=== PATIENT | male | born 1985 | race Caucasian/White ===

== ENCOUNTER 2016-06-18 14:32 | Emergency (ER) | payer OTHER ==
[~2016-06-18] VITALS: Wt 77.1 kg
[~2016-06-18 14:32] MED LIST: ATIVAN1 MG PO; BACTRIM DS 8001 TA1 PO; CARAFATE1 G1 PO; CARAFATE1 GM PO; CELEXA20 MG; Carafate1 GM PO; Carafate1 GM/10 ML PO; FEOSOL300 MG PO; FOLIC ACID1 MG PO; KLOR-CON 1010 MEQ PO; LISINOPRIL10 MG PO; MAG-OX 400400 MG PO; NICODERM21 MG/24 H TD; NKHM; OMEPRAZOLE MAGN20 MG PO; ONDANSETRON4 MG/5 M1 PO; Ondansetron4 MG PO; PANTOPRAZOLE40 MG PO; PEPCID20 MG PO; PHENERGAN12.5 M1; PHENERGAN25 M1 PO; PHENERGAN25 MG R; PREVACID SOLUTA30 MG PO; PREVACID30 M3 PO; PRILOSEC10 MG/Pack PO; PRILOSEC40 MG PO; PROMETHAZI6.25 MG/1 PO; PROTONIX40 MG PO; Phenergan25 MG PO; REGLAN10 MG PO; REGLAN5 MG PO; TUMS ULTRA1000 MG PO; VASOTEC5 MG PO; VISTARIL25 M2 PO; ZANTAC 150150 MG PO; ZANTAC150 MG PO; ZOFRAN ODT4 MG PO; ZOFRAN ODT4 MG SL; ZOFRAN4 MG PO; Zofran4 MG PO; [UNRECOGNIZED DRUG - OTHER] PO
[2016-06-18 15:16] LABS: BASO # 0.1 10*3/uL (0.0-0.1); BASO % 0.9 % (0.0-1.0); EOS # 0.1 10*3/uL (0.0-0.4); HEMATOCRIT 46.2 % (42.0-52.0); HEMOGLOBIN 15.8 g/dl (14.0-18.0); IG # 0.1 10*3/uL (0.0-0.1); LYMPH % 21.7 % (27.0-41.0); MEAN CELL VOLUME 83.2 fl (80.0-94.0); MEAN CORPUSCULAR HGB 28.5 pg (27.0-31.0); MEAN CORPUSCULAR HGB CONC 34.2 g/dl (33.0-37.0); MEAN PLATELET VOLUME 9.8 fl (9.6-12.3); MONO # 0.6 10*3/uL (0.1-1.0); MONO % 4.6 % (3.0-9.0); NEUT # 9.7 10*3/uL (2.3-7.9); NEUT % 71.4 % (47.0-73.0); PLATELET COUNT AUTOMATED 326 10*3/uL (130-400); RED BLOOD COUNT 5.55 10*6/uL (4.50-5.90); WHITE BLOOD COUNT 13.6 10*3/uL (4.8-10.8)
[2016-06-18 15:31] LABS: ALBUMIN 4.6 gm/dl (3.1-4.5); ALKALINE PHOSPHATASE 76 U/L (45-117); BILIRUBIN, TOTAL 0.8 mg/dl (0.2-1.0); BUN 11 mg/dl (7-24); CARBON DIOXIDE 23 mmol/L (21-32); CHLORIDE 104 mmol/L (98-107); EST GLOM FILT AFRICAN AMERICAN > 60 ml/min; GLUCOSE 140 mg/dL (65-99); MAGNESIUM 2.1 mg/dL (1.5-2.1); POTASSIUM 3.6 mmol/L (3.5-5.1); SGOT/AST 18 IU/L (3-35); SGPT/ALT 39 U/L (12-78); SODIUM 140 mmol/L (136-145); TOTAL PROTEIN 8.4 gm/dL (6.4-8.2)
[2016-06-18] MEDS ORDERED: ZOFRAN4 MG PO ×2 (17:34→19:09)
[2016-06-18] MEDS ORDERED: PHENERGAN25 MG R (19:09)
== END 2016-06-18 19:13 | disposition home or self-care (01) ==
LOC: ED 14:32
PROVIDERS: Nurse Practitioner Family
DX: R11.2 Nausea with vomiting, unspecified (principal); R03.0 Elevated blood-pressure reading, without diagnosis of hypertension; F41.9 Anxiety disorder, unspecified; F12.10 Cannabis abuse, uncomplicated; I10 Essential (primary) hypertension; K21.9 Gastro-esophageal reflux disease without esophagitis

== ENCOUNTER 2016-06-19 03:45 | Inpatient (IN) | payer OTHER ==
[~2016-06-19] VITALS: Ht 180.3 cm; Wt 82.1 kg
[2016-06-19 03:48] VITALS: BP 152/97
[2016-06-19 04:23] LABS: BASO % 0.2 % (0.0-1.0); HEMATOCRIT 42.2 % (42.0-52.0); HEMOGLOBIN 14.7 g/dl (14.0-18.0); IG # 0.1 10*3/uL (0.0-0.1); LYMPH # 2.1 10*3/uL (1.3-4.4); LYMPH % 10.2 % (27.0-41.0); MEAN CELL VOLUME 80.8 fl (80.0-94.0); MEAN CORPUSCULAR HGB 28.2 pg (27.0-31.0); MEAN CORPUSCULAR HGB CONC 34.8 g/dl (33.0-37.0); MEAN PLATELET VOLUME 10.2 fl (9.6-12.3); MONO # 1.1 10*3/uL (0.1-1.0); MONO % 5.4 % (3.0-9.0); NEUT # 17.2 10*3/uL (2.3-7.9); NEUT % 83.8 % (47.0-73.0); PLATELET COUNT AUTOMATED 318 10*3/uL (130-400); RED BLOOD COUNT 5.22 10*6/uL (4.50-5.90); RED CELL DISTRI WIDTH 13.2 % (0-14.5); WHITE BLOOD COUNT 20.5 10*3/uL (4.8-10.8)
[2016-06-19 04:40] LABS: ALBUMIN 4.5 gm/dl (3.1-4.5); ALKALINE PHOSPHATASE 71 U/L (45-117); BILIRUBIN, TOTAL 0.8 mg/dl (0.2-1.0); BUN 11 mg/dl (7-24); CARBON DIOXIDE 22 mmol/L (21-32); CHLORIDE 103 mmol/L (98-107); EST GLOM FILT AFRICAN AMERICAN > 60 ml/min; GLUCOSE 139 mg/dL (65-99); POTASSIUM 3.4 mmol/L (3.5-5.1); SGOT/AST 17 IU/L (3-35); SGPT/ALT 34 U/L (12-78); SODIUM 140 mmol/L (136-145); TOTAL PROTEIN 8.2 gm/dL (6.4-8.2)
[2016-06-19 04:42] LABS: C-REACTIVE PROTEIN < 0.29 MG/DL (0-0.3)
[2016-06-19 06:00] VITALS: BP 170/98
[2016-06-19 06:40] LABS: FREE T4 1.48 ng/dl (0.76-1.46)
[2016-06-19 06:45] LABS: THYROID STIM HORMONE (HS) 3.36 uIU/ml (0.358-4.75)
[2016-06-19 07:02] LABS: PROTHROMBIN TIME 10.8 SECONDS (9.0-12.4)
[2016-06-19 08:00] VITALS: BP 118/76
[2016-06-19 08:28] LABS: VITAMIN D, 25-HYDROXY 13.2 ng/mL (30-100)
[2016-06-19 08:29] LABS: FOLIC ACID 14.1 ng/mL (>5.38)
[2016-06-19 12:00] VITALS: BP 121/81
[2016-06-19 14:45] LABS: URINE AMPHETAMINES < 1000 (1000ng/ml); URINE BARBITURATES < 200 (200ng/ml); URINE COCAINE < 300 (300ng/ml)
[2016-06-19 16:00] VITALS: BP 118/75
[2016-06-19 20:00] VITALS: BP 134/83
[2016-06-20] VITALS: BP 127/81
[2016-06-20 06:08] LABS: BASO # 0.1 10*3/uL (0.0-0.1); BASO % 0.8 % (0.0-1.0); EOS # 0.2 10*3/uL (0.0-0.4); EOS % 1.4 % (1.0-4.0); HEMATOCRIT 40.1 % (42.0-52.0); HEMOGLOBIN 13.4 g/dl (14.0-18.0); LYMPH # 2.9 10*3/uL (1.3-4.4); MEAN CORPUSCULAR HGB CONC 33.4 g/dl (33.0-37.0); MEAN PLATELET VOLUME 10.2 fl (9.6-12.3); MONO # 0.8 10*3/uL (0.1-1.0); MONO % 7.5 % (3.0-9.0); NEUT # 6.8 10*3/uL (2.3-7.9); NEUT % 62.9 % (47.0-73.0); PLATELET COUNT AUTOMATED 231 10*3/uL (130-400); RED BLOOD COUNT 4.78 10*6/uL (4.50-5.90); RED CELL DISTRI WIDTH 13.4 % (0-14.5); WHITE BLOOD COUNT 10.9 10*3/uL (4.8-10.8)
[2016-06-20 06:10] LABS: MEAN CELL VOLUME 83.9 fl (80.0-94.0)
[2016-06-20 06:29] LABS: ALBUMIN 3.6 gm/dl (3.1-4.5); BILIRUBIN, TOTAL 1.2 mg/dl (0.2-1.0); BUN 7 mg/dl (7-24); CARBON DIOXIDE 26 mmol/L (21-32); CHLORIDE 107 mmol/L (98-107); EST GLOM FILT AFRICAN AMERICAN > 60 ml/min; GLUCOSE 85 mg/dL (65-99); MAGNESIUM 2.4 mg/dL (1.5-2.1); PHOSPHOROUS 2.7 mg/dL (2.5-4.9); POTASSIUM 3.7 mmol/L (3.5-5.1); SGOT/AST 28 IU/L (3-35); SODIUM 142 mmol/L (136-145); TOTAL PROTEIN 6.9 gm/dL (6.4-8.2)
[2016-06-20 06:30] LABS: ALKALINE PHOSPHATASE 60 U/L (45-117); SGPT/ALT 34 U/L (12-78)
[2016-06-20 08:00] VITALS: BP 129/88
[2016-06-20 12:00] VITALS: BP 140/85
[2016-06-20] MEDS ORDERED: CIPRO500 MG PO (13:37)
[2016-06-20] MEDS ORDERED: FLAGYL500 MG PO (13:37)
== END 2016-06-20 13:00 | disposition home or self-care (01) | DRG 872 ==
LOC: ED 03:45 → 5E 05:06 → EDHOLD 05:06 → 5E 05:11
PROVIDERS: Emergency Medicine Emergency Medical Services; Internal Medicine Hospice and Palliative Medicine
DX: A41.9 Sepsis, unspecified organism (principal); E55.9 Vitamin D deficiency, unspecified; F12.10 Cannabis abuse, uncomplicated; K52.9 Noninfective gastroenteritis and colitis, unspecified; G43.A0 Cyclical vomiting, in migraine, not intractable; K21.9 Gastro-esophageal reflux disease without esophagitis; F41.9 Anxiety disorder, unspecified; Z87.81 Personal history of (healed) traumatic fracture; Z80.9 Family history of malignant neoplasm, unspecified; Z82.3 Family history of stroke

== ENCOUNTER 2016-10-04 15:14 | Inpatient (IN) | payer OTHER ==
[~2016-10-04] VITALS: Ht 180.3 cm; Wt 83.6 kg
--- NOTE | ~2016-10-04 | O ---
[place], [place] OPERATIVE NOTE NAME: KRISTINA HATFIELD UNIT #: [id number] ROOM: 411 DOCTOR: ALAINA RAINNIMCO BIRTHDATE: [birth year] DOS: 10/06/2016 INDICATIONS: The patient has presented with relentless nausea, vomiting. This has happened to him periodically and according to his mother reflux symptomatology also has been addressed. He has been telling me that he has had CT scan and workup done in past in same regard. PAST MEDICAL HISTORY: Anxiety, cannabis dependency, gastroesophageal reflux, hiatal hernia. PAST SURGICAL HISTORY: Previous endoscopy. SOCIAL HISTORY: Nonalcohol consumer, nonsmoker, except marijuana. FAMILY HISTORY: Supportive mother. ALLERGIES: No known medications. HOME MEDICATION: Nil. PROCEDURE: Today's procedure part of investigation is panendoscopy plus biopsy of the antrum and biopsies of the esophagus. PREMEDICATION: Versed and Diprivan. SCOPE: Olympus forward-viewing gastroscope Q10 video. REPORT: After putting the patient in the left lateral position and after application of lubricant to the scope, the scope was introduced. Thereafter, under direct visualization, I advanced through the length of the esophagus without difficulty. There are diffuse esophageal ulcerations at the distal and thoracic esophagus secondary to reflux. Hiatal hernia, which is about 3 cm plus, was identified. Gastric pouch was entered. Gastritis noticed. Duodenum expresses multi small duodenal ulcerations. Antral biopsy obtained for H. pylori. Biopsies from ulcers on esophagus were obtained. The patient extubated, tolerated procedure well. IMPRESSION: Gastroesophageal reflux disease, reflux, diffuse esophageal ulcers, multi-duodenal ulcers. PLAN: At the present time, we have to consider prokinetic as back bone of his management with metoclopramide 5 mg daily to see if he can tolerate the medication. Elevation of the head of the bed 6 inches all time with antireflux while he is inpatient and double dose ulcer therapy with Protonix 40 mg IV b.i.d., sucralfate 2 g slurry q.i.d. and Gaviscon 1 at bedtime as an outpatient in addition to Protonix 40 mg q.a.m. Follow up as outpatient for further adjustment of medications. Thank you very much indeed. [place], [place] OPERATIVE NOTE NAME: KRISTINA HATFIELD UNIT #: [id number] ROOM: [facility] DOCTOR: NIMCO FOLEY MD BIRTHDATE: [birth year] NIMCO FOLEY MD CM:OPRECORD:OPERATIVE NOTE [id number] NIMCO FOLEY MD 10/06/16 1923 interface
--- NOTE | ~2016-10-04 | CON ---
[place], [place] REPORT OF CONSULTATION NAME: [facility]RISTINA HATFIELD [id number] UNIT #: [id number] ROOM: 411 DOCTOR: KIAN KERR ED.D (SO) BIRTHDATE: [birth year] DOS: 10/05/2016 HISTORY OF PRESENT ILLNESS: The patient is a 31-year-old male referred due to chronic vomiting syndrome. He was referred by the hospitalist. At the present time, this patient is on the fourth floor at [facility]. He is single and has no children. He does live with his parents here in [place]. He has no siblings. He also does not have a family physician and is not working. 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 He does not have a family physician and his medical history is pertinent for cannabis abuse, chronic gastritis, hiatal hernia, vitamin D deficiency, and GERD. He does not have any regular medications, but does use marijuana significant amount of the time. He states that his vomiting is related to marijuana. This patient was awake, alert and oriented in all three spheres. He did appear to be depressed, but he denied any suicidal ideation or plan and did not appear to be having any active hallucinations or delusional thoughts. He denied any hallucinations also. He has not followed up with a counselor and I suggested he might consider that due to the fact that he is depressed, but he states that once he gets a job, he will feel fine. DIAGNOSES: 1. Cannabis abuse. 2. Persistent depressive disorder. RECOMMENDATIONS: The patient should consider counseling for substance abuse issues along with depression. Thank you very much for this consult. KIAN KERR ED.D CM:CONSTR:REPORT OF CONSULTATION 1044 10/06/16 0118 interface
[~2016-10-04 15:14] MED LIST changes: +CIPRO500 MG PO; +FLAGYL500 MG PO
[2016-10-04 15:22] VITALS: BP 158/90
[2016-10-04 15:43] VITALS: BP 156/88
[2016-10-04 16:02] LABS: BASO # 0.1 10*3/uL (0.0-0.1); BASO % 0.9 % (0.0-1.0); EOS # 0.1 10*3/uL (0.0-0.4); EOS % 0.6 % (1.0-4.0); HEMATOCRIT 44.2 % (42.0-52.0); HEMOGLOBIN 15.5 g/dl (14.0-18.0); IG # 0.1 10*3/uL (0.0-0.1); LYMPH # 2.5 10*3/uL (1.3-4.4); LYMPH % 17.5 % (27.0-41.0); MEAN CELL VOLUME 81.3 fl (80.0-94.0); MEAN CORPUSCULAR HGB 28.5 pg (27.0-31.0); MEAN CORPUSCULAR HGB CONC 35.1 g/dl (33.0-37.0); MEAN PLATELET VOLUME 10.3 fl (9.6-12.3); MONO # 0.6 10*3/uL (0.1-1.0); MONO % 4.3 % (3.0-9.0); NEUT % 76.1 % (47.0-73.0); PLATELET COUNT AUTOMATED 296 10*3/uL (130-400); RED BLOOD COUNT 5.44 10*6/uL (4.50-5.90); RED CELL DISTRI WIDTH 13.5 % (0-14.5); WHITE BLOOD COUNT 14.4 10*3/uL (4.8-10.8)
[2016-10-04 16:18] LABS: ALBUMIN 4.2 gm/dl (3.1-4.5); ALKALINE PHOSPHATASE 70 U/L (45-117); BILIRUBIN, TOTAL 0.7 mg/dl (0.2-1.0); BUN 8 mg/dl (7-24); CARBON DIOXIDE 21 mmol/L (21-32); CHLORIDE 106 mmol/L (98-107); EST GLOM FILT AFRICAN AMERICAN > 60 ml/min; GLUCOSE 141 mg/dL (65-99); POTASSIUM 3.5 mmol/L (3.5-5.1); SGOT/AST 15 IU/L (3-35); SGPT/ALT 27 U/L (12-78); SODIUM 140 mmol/L (136-145); TOTAL PROTEIN 8.1 gm/dL (6.4-8.2)
[2016-10-04] MEDS ORDERED: Zofran4 MG PO (17:40)
[2016-10-04 18:22] VITALS: BP 164/95
[2016-10-04 19:10] VITALS: BP 158/92
[2016-10-04 19:40] VITALS: BP 155/80
[2016-10-04 19:42] VITALS: BP 155/91
[2016-10-04 21:58] LABS: LA>2 REFLEX 2 HR DRAW NOW
[2016-10-04 23:00] LABS: LA>2 RFLX FOLLOW UP AT 2 HRS 3.6 mmol/L (0.4-2.0)
[2016-10-05] VITALS: BP 158/90
[2016-10-05 00:53] LABS: LA>2 REFLEX 4 HR DRAW NOW
[2016-10-05 03:22] LABS: LA>2 REFLEX 2 HR DRAW NOW
[2016-10-05 03:55] LABS: LA>2 RFLX FOLLOW UP AT 2 HRS 2.2 mmol/L (0.4-2.0)
[2016-10-05 04:00] VITALS: BP 158/90
[2016-10-05 05:50] LABS: LA>2 REFLEX 4 HR DRAW NOW
[2016-10-05 06:06] LABS: BASO % 0.1 % (0.0-1.0); HEMATOCRIT 41.6 % (42.0-52.0); HEMOGLOBIN 14.1 g/dl (14.0-18.0); IG # 0.1 10*3/uL (0.0-0.1); LYMPH # 1.5 10*3/uL (1.3-4.4); LYMPH % 7.7 % (27.0-41.0); MEAN CELL VOLUME 81.6 fl (80.0-94.0); MEAN CORPUSCULAR HGB 27.6 pg (27.0-31.0); MEAN CORPUSCULAR HGB CONC 33.9 g/dl (33.0-37.0); MEAN PLATELET VOLUME 11.1 fl (9.6-12.3); MONO # 0.9 10*3/uL (0.1-1.0); MONO % 4.6 % (3.0-9.0); PLATELET COUNT AUTOMATED 290 10*3/uL (130-400); RED CELL DISTRI WIDTH 13.5 % (0-14.5); WHITE BLOOD COUNT 19.6 10*3/uL (4.8-10.8)
[2016-10-05 06:11] LABS: HEMOGLOBIN A1c 5.3 % (4.8-5.6)
[2016-10-05 06:22] LABS: BUN 9 mg/dl (7-24); CARBON DIOXIDE 25 mmol/L (21-32); CHLORIDE 103 mmol/L (98-107); CHOLESTEROL 174 mg/dL (<200); EST GLOM FILT AFRICAN AMERICAN > 60 ml/min; FREE T4 1.25 ng/dl (0.76-1.46); GLUCOSE 131 mg/dL (65-99); HDL CHOLESTEROL 45 mg/dl (40-60); LDL CHOLESTEROL 108 mg/dL (9-159); POTASSIUM 3.2 mmol/L (3.5-5.1); SODIUM 139 mmol/L (136-145); TRIGLYCERIDES 104 mg/dl (<150); VLDL CHOLESTEROL 21 mg/dL (6-40)
[2016-10-05 06:33] LABS: PROTHROMBIN TIME 10.9 SECONDS (9.0-12.4)
[2016-10-05 06:45] LABS: VITAMIN D, 25-HYDROXY 26.1 ng/mL (30-100)
[2016-10-05 06:46] LABS: FOLIC ACID 13.6 ng/mL (>5.38)
[2016-10-05 07:45] LABS: LA>2 REFLEX 2 HR DRAW NOW
[2016-10-05 08:00] VITALS: BP 168/82
[2016-10-05 08:16] LABS: LA>2 RFLX FOLLOW UP AT 2 HRS 2.2 mmol/L (0.4-2.0)
[2016-10-05 08:28] LABS: URINE AMPHETAMINES < 1000 (1000ng/ml); URINE BARBITURATES < 200 (200ng/ml); URINE COCAINE < 300 (300ng/ml)
[2016-10-05 10:00] LABS: LA>2 REFLEX 4 HR DRAW NOW
[2016-10-05 12:00] VITALS: BP 147/89
[2016-10-05 16:00] VITALS: BP 140/80
[2016-10-05 20:00] VITALS: BP 129/85
[2016-10-06] VITALS (9 sets, daily range): BP systolic 131–156; BP diastolic 81–95
[2016-10-06 06:04] LABS: BASO % 0.2 % (0.0-1.0); HEMATOCRIT 36.4 % (42.0-52.0); HEMOGLOBIN 12.5 g/dl (14.0-18.0); IG # 0.1 10*3/uL (0.0-0.1); LYMPH # 1.9 10*3/uL (1.3-4.4); LYMPH % 11.9 % (27.0-41.0); MEAN CELL VOLUME 83.5 fl (80.0-94.0); MEAN CORPUSCULAR HGB 28.7 pg (27.0-31.0); MEAN CORPUSCULAR HGB CONC 34.3 g/dl (33.0-37.0); MEAN PLATELET VOLUME 10.3 fl (9.6-12.3); MONO # 1.1 10*3/uL (0.1-1.0); MONO % 6.6 % (3.0-9.0); NEUT % 80.9 % (47.0-73.0); PLATELET COUNT AUTOMATED 229 10*3/uL (130-400); RED BLOOD COUNT 4.36 10*6/uL (4.50-5.90); RED CELL DISTRI WIDTH 13.8 % (0-14.5)
[2016-10-06 06:18] LABS: BUN 8 mg/dl (7-24); CARBON DIOXIDE 25 mmol/L (21-32); CHLORIDE 105 mmol/L (98-107); EST GLOM FILT AFRICAN AMERICAN > 60 ml/min; GLUCOSE 116 mg/dL (65-99); POTASSIUM 3.3 mmol/L (3.5-5.1); SODIUM 138 mmol/L (136-145)
[2016-10-07] VITALS: BP 150/90
[2016-10-07 04:00] VITALS: BP 152/98
[2016-10-07 08:00] VITALS: BP 152/98
[2016-10-07] MEDS ORDERED: NEXIUM20 M1 PO (10:52)
[2016-10-07] MEDS ORDERED: Carafate1 GM/10 ML PO (10:52)
[2016-10-07] MEDS ORDERED: REGLAN10 MG/10 M PO (10:52)
== END 2016-10-07 13:29 | disposition home or self-care (01) | DRG 872 ==
LOC: ED 15:14 → EDHOLD 18:27 → 4E 18:27
PROVIDERS: Emergency Medicine; Family Medicine; Internal Medicine; Internal Medicine Hospice and Palliative Medicine
PROC: 0DB58ZX Excision of Esophagus, Via Natural or Artificial Opening Endoscopic, Diagnostic (ICD-10-PCS; principal; 2016-10-06)
PROC: 0DB68ZX Excision of Stomach, Via Natural or Artificial Opening Endoscopic, Diagnostic (ICD-10-PCS; 2016-10-06)
DX: A41.9 Sepsis, unspecified organism (principal); K26.9 Duodenal ulcer, unspecified as acute or chronic, without hemorrhage or perforation; K22.10 Ulcer of esophagus without bleeding; K29.50 Unspecified chronic gastritis without bleeding; R65.20 Severe sepsis without septic shock; K52.9 Noninfective gastroenteritis and colitis, unspecified; K44.9 Diaphragmatic hernia without obstruction or gangrene; K20.9 Esophagitis, unspecified; G43.A0 Cyclical vomiting, in migraine, not intractable; R73.9 Hyperglycemia, unspecified; K21.0 Gastro-esophageal reflux disease with esophagitis; F41.9 Anxiety disorder, unspecified; E55.9 Vitamin D deficiency, unspecified; F34.1 Dysthymic disorder; F12.20 Cannabis dependence, uncomplicated; K29.70 Gastritis, unspecified, without bleeding; K29.80 Duodenitis without bleeding; F32.9 Major depressive disorder, single episode, unspecified; Z71.51 Drug abuse counseling and surveillance of drug abuser; Z79.899 Other long term (current) drug therapy; Z76.5 Malingerer [conscious simulation]

== ENCOUNTER 2016-12-18 19:38 | Inpatient (IN) | payer OTHER ==
[~2016-12-18] VITALS: Ht 180.3 cm; Wt 80.3 kg
--- NOTE | ~2016-12-18 | O ---
[place], [place] OPERATIVE NOTE NAME: KRISTINA HATFIELD [id number] UNIT #: [id number] ROOM: 501 DOCTOR[facility] BIRTHDATE: [birth year] DOS: GASTROENDOSCOPIC REPORT INDICATIONS: The patient has presented with epigastric abdominal pain. The patient has a known case of gastritis, apparently a noncompliant case, who has had access to sucralfate, Protonix and metoclopramide. Apparently, he has not been taking his medications and presented again with epigastric abdominal pain. PAST MEDICAL HISTORY: Cannabis user, intractable nausea or vomiting, gastritis, hypoglycemia, duodenal ulcer, gastritis. PROCEDURE: Today's procedure part of investigation is panendoscopy plus photographic series and biopsy. PREMEDICATIONS: Versed and Diprivan. SCOPE: Olympus forward-viewing gastroscope Q10 video. REPORT: After putting the patient in left lateral position and application of lubricant to the scope, the scope was introduced. Thereafter, under direct visualization, I advanced through the length of the esophagus. Cervical esophagus benign; however, thoracic and distal esophagus is diffusely ulcerated secondary to refluxes and this is circular throughout the length of the esophagus otherwise. Ulceration intensified as we approached esophagogastric junction. A 2-cm hiatal hernia noticed. Gastric pouch was entered. Gastritis of mild degree was seen, patency of duodenal bulb, second and third part are short. Scope was withdrawn back to the esophagus. Biopsy from segment of the ulcer was obtained. No bleeding ensued. Scope was gradually withdrawn. The patient extubated, tolerated the procedure well. IMPRESSION: Reflux, esophageal ulcerations, diffuse distal and thoracic esophagus. PLAN AND DISCUSSION: This patient requires to be compliant and to take his medication; therefore, we are going to put him on Reglan 10 mg a.m. and p.m. We are going to start him on sucralfate sips at 2 grams q.i.d. We are going to keep him on GERD diet. We are going to increase his Protonix to 40 mg IV b.i.d. and antireflux measures, Gaviscon 15 p.c. meals and clinical reassessment. Definitive source of his epigastric distress is subxiphoid chest pain and is entirely secondary to his diffuse esophageal ulceration. [place], [place] OPERATIVE NOTE NAME: KRISTINA HATFIELD Trina UNIT #: [id number] ROOM: [facility] [place] DOCTOR: ALAINA RAIN,NIMCO BIRTHDATE: [birth year] NIMCO FOLEY MD CM:OPRECORD:OPERATIVE NOTE 1200 [id number] NIMCO FOLEY MD 12/22/16 1257 interface
--- NOTE | ~2016-12-18 | CON ---
[place], [place] REPORT OF CONSULTATION NAME: KRISTINA HATFIELD UNIT #: [id number] ROOM: 501 DOCTOR: NIMCO FOLEY MD BIRTHDATE: [birth year] DOS: HISTORY OF PRESENT ILLNESS: A 31-year-old patient who has presented with chief complaint of epigastric pain, nausea and vomiting to the point where he has to seek medical attention to be evaluated. CT scan of the abdomen shows wall thickening, hyperplasia of distal stomach, underlying infection and ulceration could not be ruled out. The patient was admitted with white blood cell of 16, H and H of 14 and 42. Comprehensive metabolic panel, electrolyte balance and liver function tests normal. Amylase and lipase within normal limits. His basic metabolic remains the same. Low potassium was addressed. White blood cell 14. PAST MEDICAL HISTORY: Associated cannabis dependency, nausea and emesis cyclic, gastritis, anxiety, cholelithiasis, hiatal hernia and GERD. PAST SURGICAL HISTORY: EGD. SOCIAL HISTORY: Nonalcohol user, non-nicotine consumer, however, marijuana consumer. FAMILY HISTORY: Noncontributory. ALLERGIES: No known medications. MEDICATIONS: Medication list is known. The patient has been supposedly on sucralfate and metoclopramide, PPI and antiemetics; however, as I am questioning, the patient apparently has not been taking his medicine at home. REVIEW OF SYSTEMS: HEENT: Denies double vision, blurred vision. RESPIRATORY: Denies acute shortness of breath. CARDIOVASCULAR: Denies acute chest pain. DIGESTIVE SYSTEM: Nausea or vomiting. PHYSICAL EXAMINATION: VITAL SIGNS: Stable. HEENT: Head normocephalic, nontraumatic. Mouth and buccal mucosa benign. NECK: Supple, no thyromegaly. CHEST: Symmetric anatomy, equal expansion. No wheeze, no rhonchi. HEART: Normal sinus rhythm, no gallop, no murmur. ABDOMEN: Soft. No hepato-organomegaly. Bowel sounds present. No pulsatile mass, epigastric distress. EXTREMITIES: No cyanosis. No pedal edema. NEUROLOGIC: Alert, oriented to time, place and person. IMPRESSION: Epigastric abdominal pain, abnormal CT scan with wall thickening of distal stomach ruling out peptic ulcer disease, gastritis and erosions. OTHER ADJUNCTIVE DIAGNOSES: As outlined in paragraph of past medical and surgical history. [place], [place] REPORT OF CONSULTATION NAME: KRISTINA HATFIELD UNIT #: [id number] ROOM: 501 DOCTOR: ALAINA RAIN,NIMCO BIRTHDATE: [birth year] PLAN AND DISCUSSION: This patient already has had a HIDA scan done. His ejection fraction has been 69 and his gallbladder sonogram result is known to us, cholelithiasis with wall thickening, positive Inman sign and workup in progress. NIMCO FOLEY MD CM:CONSTR:REPORT OF CONSULTATION 1151 12/22/16 2146 interface
[~2016-12-18 19:38] MED LIST changes: +NEXIUM20 M1 PO; +REGLAN10 MG/10 M PO
[2016-12-18 20:00] VITALS: BP 146/90
--- NOTE | 2016-12-18 20:25 | NUR ---
PT ACTIVELY VOMITING IN EXAM ROOM OFFSET MACHINE OPERATOR STEVIE NOTIFIED
[2016-12-18 20:44] LABS: HEMATOCRIT 42.7 % (42.0-52.0); HEMOGLOBIN 14.5 g/dl (14.0-18.0); MEAN CELL VOLUME 81.8 fl (80.0-94.0); MEAN CORPUSCULAR HGB 27.8 pg (27.0-31.0); MEAN PLATELET VOLUME 10.4 fl (9.6-12.3); PLATELET COUNT AUTOMATED 319 10*3/uL (130-400); RED BLOOD COUNT 5.22 10*6/uL (4.50-5.90); RED CELL DISTRI WIDTH 13.6 % (0-14.5); WHITE BLOOD COUNT 16.8 10*3/uL (4.8-10.8)
[2016-12-18 21:01] LABS: ALBUMIN 4.3 gm/dl (3.1-4.5); ALKALINE PHOSPHATASE 86 U/L (45-117); BUN 9 mg/dl (7-24); CHLORIDE 105 mmol/L (98-107); CREATININE 0.93 mg/dL (0.70-1.30); LIPASE 73 U/L (73-393); POTASSIUM 3.7 mmol/L (3.5-5.1); SGOT/AST 12 IU/L (3-35); SGPT/ALT 24 U/L (12-78); SODIUM 139 mmol/L (136-145); TOTAL PROTEIN 8.5 gm/dL (6.4-8.2)
[2016-12-18 21:03] LABS: TOTAL CELLS COUNTED 100 #CELLS
[2016-12-18 21:05] LABS: PLATELET SUFFICIENCY NORMAL (NORMAL)
--- NOTE | 2016-12-18 21:08 | NUR ---
NO EMESIS SINCE ZOFRAN WAS GIVEN PT TO CT SCAN
--- NOTE | 2016-12-18 21:31 | NUR ---
PT HAD SMALL EMESIS BROWNISH IN COLOR CRAFT RECRUITER STEVIE NOTIFIED
--- NOTE | 2016-12-18 22:12 | NUR ---
pt resting in bed no distress noted call light in reach
--- NOTE | 2016-12-18 22:51 | NUR ---
PT REQUESTED SANOTHER BAG OF FLUIDS AND ZOFRAN RICH HUBBARD NOTIFIED
--- NOTE | 2016-12-18 22:55 | NUR ---
PT REQUESTING MORE BENADRYL RICH HUBBARD NOTIFIED
[2016-12-18 23:04] LABS: BILIRUBIN 1+ (NEGATIVE); BLOOD TRACE-INTACT (NEGATIVE); CLARITY CLEAR (CLEAR); COLOR YELLOW (YELLOW); GLUCOSE NEGATIVE (NEGATIVE); KETONE 3+ (NEGATIVE); LEUKO ESTERASE NEGATIVE (NEGATIVE); NITRITE NEGATIVE (NEGATIVE); SPECIFIC GRAVITY >= 1.030 (1.005-1.030); UROBILINOGEN 0.2 E.U./dl (0.2-1.0)
--- NOTE | 2016-12-18 23:10 | NUR ---
REPORT TO ZOHAIB FOX RN
[2016-12-18 23:14] LABS: URINE AMPHETAMINES < 1000 (1000ng/ml); URINE BARBITURATES < 200 (200ng/ml); URINE BENZODIAZEPINES < 200 (200ng/ml); URINE CANNABINOIDS (THC) > 50 (50ng/ml); URINE COCAINE < 300 (300ng/ml); URINE METHADONE < 300 (300ng/ml); URINE OPIATES < 300 (300ng/ml)
[2016-12-18 23:19] LABS: BACTERIA TRACE; MUCOUS 1+; URINE PHENCYCLIDINE < 25 (25ng/ml)
--- NOTE | 2016-12-18 23:28 | NUR ---
PT HAD APPROXIMATELY 200CC BROWN LIQUID EMESIS.
[2016-12-19 00:49] VITALS: BP 132/78
[2016-12-19 01:00] VITALS: BP 122/79
--- NOTE | 2016-12-19 01:00 | NUR ---
Time: 99 A 31 year old MALE admitted to 5E under services of BRANDEN BEAVERS DO. Pt. arrived via wheel chair from ER. Chief complaint: NAUSEA/VOMITING. MARIFER SOSA
[2016-12-19 01:07] VITALS: BP 122/79
--- NOTE | 2016-12-19 02:57 | NUR ---
MEDICATED WITH PRN PHENERGHAN FOR C/O NAUSEA
[2016-12-19 06:19] LABS: BASO % 0.1 % (0.0-1.0); HEMATOCRIT 40.1 % (42.0-52.0); HEMOGLOBIN 13.4 g/dl (14.0-18.0); LYMPH # 1.6 10*3/uL (1.3-4.4); LYMPH % 12.2 % (27.0-41.0); MEAN CELL VOLUME 83.9 fl (80.0-94.0); MEAN CORPUSCULAR HGB CONC 33.4 g/dl (33.0-37.0); MEAN PLATELET VOLUME 10.8 fl (9.6-12.3); MONO # 0.8 10*3/uL (0.1-1.0); MONO % 5.9 % (3.0-9.0); NEUT # 10.9 10*3/uL (2.3-7.9); NEUT % 81.4 % (47.0-73.0); PLATELET COUNT AUTOMATED 299 10*3/uL (130-400); RED BLOOD COUNT 4.78 10*6/uL (4.50-5.90); RED CELL DISTRI WIDTH 13.9 % (0-14.5); WHITE BLOOD COUNT 13.4 10*3/uL (4.8-10.8)
[2016-12-19 06:59] LABS: ACT PARTIAL THROMBO TIME 22.8 SECONDS (20.8-31.5)
[2016-12-19 07:02] LABS: BUN 7 mg/dl (7-24); CHLORIDE 106 mmol/L (98-107); CHOLESTEROL 160 mg/dL (<200); CREATININE 0.79 mg/dL (0.70-1.30); HDL CHOLESTEROL 47 mg/dl (40-60); LDL CHOLESTEROL 100 mg/dL (9-159); POTASSIUM 3.6 mmol/L (3.5-5.1); SODIUM 139 mmol/L (136-145); TRIGLYCERIDES 63 mg/dl (<150); VLDL CHOLESTEROL 13 mg/dL (6-40)
[2016-12-19 08:00] VITALS: BP 132/82
--- NOTE | 2016-12-19 09:00 | NUR ---
Labor Standards Director in to talk to patient. Patient states lives at home with family. There are few steps in the home. Physician: Pharmacy: no jacques Home health services: none Patient's level of ADLs: INDEPENDENT Patient has working utilities: all working DME: none Follow-up physician's appointment after d/c: will be made by hospitalist nurse director upon discharge Does patient want to access PORTAL?: no Discharge plan discussed with patient, patient lives at home, is independent in adls and ambulation, patient states he will be going back home and denies any home needs. NATHAN VINSON
[2016-12-19 10:04] LABS: VITAMIN D, 25-HYDROXY 21.3 ng/mL (30-100)
[2016-12-19 12:00] VITALS: BP 128/84
--- NOTE | 2016-12-19 13:50 | NUR ---
MEDICATED WITH PRN IV PHENERGAN FOR PERSISTANT NAUSEA/VOMITING.
--- NOTE | 2016-12-19 15:00 | NUR ---
PHENERGAN WAS MILDLY EFFECTIVE, PER PATIENT. HE IS REQUESTING BENADRYL FOR NAUSEA/ANXIETY.
--- NOTE | 2016-12-19 16:37 | NUR ---
MEDICATED WITH PRN IV BENADRYL FOR NAUSEA/ANXIETY. PATIENT CONTINUES TO HAVE INTERMITTENT FREQUENT EMESIS SMALL AMOUNTS OF WATERY LIQUID. HE HAS NO APPETITE, ATE ONE POPSICLE AND FEW SIPS OF WATER TODAY.
--- NOTE | 2016-12-19 17:08 | NUR ---
PATIENT CONTINUES TO HAVE CLEAR LIQUID EMESIS; BENADRYL PRN IV AND SCHEDULED ZOFRAN NOT EFFECTIVE.
[2016-12-19 20:00] VITALS: BP 143/90
--- NOTE | 2016-12-19 20:00 | NUR ---
ASSUMED CARE OF PATIENT. ASSESSMENT COMPLETE. SITTING UP ON SIDE OF BED. REQUESTING IV BENADRYL, MADE AWARE ON NEXT AVAILABLE DOSE. PT STATES "DO YOU HAVE SOMETHING ELSE TO KNOCK ME OUT" MADE HIM AWARE OF PRN RESTORIL. REFUSES. CALL LIGHT IN REACH.
--- NOTE | 2016-12-19 22:47 | NUR ---
MEDICATED WITH PRN BENADRYL FOR HELP TO SLEEP/RESTLESSNESS
--- NOTE | 2016-12-20 | NUR ---
PT REFUSING BLOOD PRESSURE AT THIS TIME
--- NOTE | 2016-12-20 01:47 | NUR ---
CALLED TO PATIENTS ROOM. PT STATES "I CAN'T KEEP ANYTHING DOWN, NOTHING IS WORKING. THE ZOFRAN ISN'T WORKING, THE BENADRYL ISN'T WORKING" MEDICATED WITH PRN PHENERGAN AT THIS TIME. PT THEN STATES "IT SAYS TO ASK FOR PAIN MEDICINE, I AM IN PAIN" WHEN ASKED TO RATE PAIN AND LOCATION PT STATES "IN MY ABDOMEN, IT IS PRETTY BAD" INFORMED PATIENT HE HAS TYLENOL ORDERED AND HE STATES "I DON'T TAKE PILLS THEY KNOW THAT, WHY CAN'T THEY JUST ORDER ME DILAUDID"
--- NOTE | 2016-12-20 01:54 | NUR ---
CALLED AND SPOKE TO DR ACOSTA REGARDING PT REQUESTING IV DILAUDID. NO ORDERS RECEIVED.
[2016-12-20 07:53] LABS: BASO % 0.2 % (0.0-1.0); HEMATOCRIT 40.9 % (42.0-52.0); HEMOGLOBIN 13.7 g/dl (14.0-18.0); LYMPH # 1.8 10*3/uL (1.3-4.4); LYMPH % 9.3 % (27.0-41.0); MEAN CELL VOLUME 83.3 fl (80.0-94.0); MEAN CORPUSCULAR HGB 27.9 pg (27.0-31.0); MEAN CORPUSCULAR HGB CONC 33.5 g/dl (33.0-37.0); MEAN PLATELET VOLUME 10.6 fl (9.6-12.3); MONO # 1.1 10*3/uL (0.1-1.0); MONO % 5.8 % (3.0-9.0); NEUT # 16.3 10*3/uL (2.3-7.9); NEUT % 84.3 % (47.0-73.0); PLATELET COUNT AUTOMATED 292 10*3/uL (130-400); RED BLOOD COUNT 4.91 10*6/uL (4.50-5.90); WHITE BLOOD COUNT 19.3 10*3/uL (4.8-10.8)
[2016-12-20 07:55] LABS: ALBUMIN 3.9 gm/dl (3.1-4.5); ALKALINE PHOSPHATASE 74 U/L (45-117); BUN 8 mg/dl (7-24); CHLORIDE 100 mmol/L (98-107); CREATININE 0.73 mg/dL (0.70-1.30); POTASSIUM 3.5 mmol/L (3.5-5.1); SGOT/AST 17 IU/L (3-35); SGPT/ALT 20 U/L (12-78); SODIUM 137 mmol/L (136-145); TOTAL PROTEIN 7.5 gm/dL (6.4-8.2)
[2016-12-20 08:00] VITALS: BP 146/88
--- NOTE | 2016-12-20 09:29 | NUR ---
case management visits with patient, patient denies any home needs at this time
--- NOTE | 2016-12-20 10:38 | NUR ---
Nutritional Support Services Note: Pts diet advanced to soft for breakfast. After eating pt has compliants of nausea and vomiting. Again made NPO. Will follow for advancement of po intake. Susan Salmeron
--- NOTE | 2016-12-20 10:40 | NUR ---
PT C/O ABDOMINAL PAIN, REQUESTS PRN MORPHINE 2 MG VIA IV. MORPHINE GIVEN AT THIS TIME. WILL MONITOR EFFECTIVENESS. CALL LIGHT IN REACH.
--- NOTE | 2016-12-20 10:49 | NUR ---
DR. MURPHY INFORMED THAT PATIENT IS REFUSING TO DRINK READI-CAT FOR CT SCAN. INTERNATIONAL LOGISTICS ANALYST ALSO INFORMED. MARKED ON EMAR REFUSED.
--- NOTE | 2016-12-20 11:40 | NUR ---
MORPHINE EFFECTIVE. PT RESTING IN BED. CALL LIGHT IN REACH.
--- NOTE | 2016-12-20 12:40 | NUR ---
PT OFF OF FLOOR TO X RAY FOR CT OF ABDOMEN.
--- NOTE | 2016-12-20 14:10 | NUR ---
MORPHINE GIVEN VIA IV FOR PT C/O PAIN. WILL MONITOR FOR EFFECTIVNESS. CALL LIGHT IN REACH.
--- NOTE | 2016-12-20 15:00 | NUR ---
[facility] NOTIFIED THIS NURSE OF PT CRITICAL RESULTS OF ULTRASOUND. DR. FRAUSTO NOTIFIED AT THIS TIME.
--- NOTE | 2016-12-20 15:10 | NUR ---
MORPHINE EFFECTIVE. PT RESTING IN BED, NO C/O PAIN AT THIS TIME. CALL LIGHT IN REACH.
[2016-12-20 16:00] VITALS: BP 145/99
--- NOTE | 2016-12-20 16:38 | NUR ---
DR. SHETH CALLED FOR CONSULT.
--- NOTE | 2016-12-20 18:12 | NUR ---
PT C/O ABDOMNIAL PAIN. REQUESTS MORPHINE SULFATE. MORPHINE SULFATE 2 MG GIVEN VIA IV. WILL MONITOR FOR EFFECTIVENESS. CALL LIGHT IN REACH.
--- NOTE | 2016-12-20 19:12 | NUR ---
MORPHINE EFFECTIVE. PT RESTING IN BED. CALL LIGHT IN REACH.
[2016-12-20 20:00] VITALS: BP 142/100; BP 143/103
--- NOTE | 2016-12-20 20:40 | NUR ---
SLEEPING, AWAKENS EASILY. RESPIRATIONS EASY. LUNGS CLEAR. PULSE OX 98% RA. ABD SOFT WITH NORMOACTIVE BOWEL SOUNDS, DENIES N/V/D. REQUESTED AND RECEIVED MORPHINE IV PER PRN ORDER FOR COMPLAINTS OF MID ABD PAIN RATING A 5. TRACE BLE EDEMA. OFFERED AND EDUCATED REGARDING TEDS, DECLINED. IV FLUIDS INFUSING PER ORDER. CALL LIGHT WITHIN REACH. WILL MONITOR
--- NOTE | 2016-12-20 21:00 | NUR ---
MANUAL BP 142/100. HR 70. DR CHEUNG CONTACTED AND INFORMED. PER , KEEP AN EYE ON BP AND CALL IF BP REMAINS THIS HIGH OR HIGHER ON NEXT CHECK
--- NOTE | 2016-12-20 22:00 | NUR ---
EARLIER MEDS APPEAR EFFECTIVE. RESTING WITH EYES CLOSED. RESPIRATIONS EASY. IV FLUIDS MAINTAINED. CALL LIGHT WITHIN REACH
[2016-12-21] VITALS: BP 146/92; BP 146/93
--- NOTE | 2016-12-21 00:04 | NUR ---
SITTING UP IN BED WATCHING TV. RESPIRATIONS EASY. VSS. C/O ABD PAIN RATING A 4, MEDICATED WITH MORPHINE PER PRN ORDER. IV FLUIDS MAINTAINED. CALL LIGHT WITHIN REACH. WILL MONITOR FOR EFFECTIVENESS
--- NOTE | 2016-12-21 02:00 | NUR ---
CONTINUES TO SLEEP WITH NO DISTRESS NOTED. RESPIRATIONS EASY. IV FLUIDS MAINTAINED
--- NOTE | 2016-12-21 04:30 | NUR ---
AWAKE, SITTING UP IN BED. REQUESTED MORPHINE FOR C/O ABD PAIN, EXPLAINED TO PATIENT THAT HE MAY NOT RECEIVE MORPHINE D/T HIDA SCAN IN AM. PATIENT VOICED UNDERSTANDING STATING "THAT'S OK." IV FLUIDS MAINTAINED. CALL LIGHT WITHIN REACH
--- NOTE | 2016-12-21 06:00 | NUR ---
SLEEPING. NPO STATUS MAINTAINED FOR TESTING THIS AM.
--- NOTE | 2016-12-21 06:30 | NUR ---
PATIENT TRANSPORTED OFF FLOOR VIA WC FOR TESTING
--- NOTE | 2016-12-21 06:55 | NUR ---
DR SHETH PRESENT ON FLOOR TO ASSESS PATIENT. PATIENT REMAINS OFF FLOOR FOR HIDA SCAN. AWARE PATIENT NPO SINCE MIDNIGHT. KEEP PATIENT NPO FOR POSSIBLE SURGERY
[2016-12-21 08:00] VITALS: BP 149/97
[2016-12-21 08:15] LABS: BASO # 0.1 10*3/uL (0.0-0.1); BASO % 0.6 % (0.0-1.0); EOS # 0.1 10*3/uL (0.0-0.4); EOS % 0.4 % (1.0-4.0); HEMATOCRIT 43.8 % (42.0-52.0); HEMOGLOBIN 14.6 g/dl (14.0-18.0); LYMPH # 2.6 10*3/uL (1.3-4.4); LYMPH % 16.8 % (27.0-41.0); MEAN CELL VOLUME 83.3 fl (80.0-94.0); MEAN CORPUSCULAR HGB 27.8 pg (27.0-31.0); MEAN CORPUSCULAR HGB CONC 33.3 g/dl (33.0-37.0); MEAN PLATELET VOLUME 10.3 fl (9.6-12.3); MONO # 1.2 10*3/uL (0.1-1.0); MONO % 7.8 % (3.0-9.0); NEUT # 11.3 10*3/uL (2.3-7.9); NEUT % 74.1 % (47.0-73.0); PLATELET COUNT AUTOMATED 260 10*3/uL (130-400); RED BLOOD COUNT 5.26 10*6/uL (4.50-5.90); RED CELL DISTRI WIDTH 13.8 % (0-14.5); WHITE BLOOD COUNT 15.2 10*3/uL (4.8-10.8)
[2016-12-21 08:27] LABS: BUN 8 mg/dl (7-24); CHLORIDE 104 mmol/L (98-107); CREATININE 0.74 mg/dL (0.70-1.30); POTASSIUM 3.4 mmol/L (3.5-5.1); SODIUM 137 mmol/L (136-145)
--- NOTE | 2016-12-21 09:00 | NUR ---
case management visits with patient, patient denies any home needs
--- NOTE | 2016-12-21 10:02 | NUR ---
MORPHINE 2MG GIVEN PER PATIENT REQUEST FOR ABDOMINAL PAIN.
--- NOTE | 2016-12-21 11:01 | NUR ---
MORPHINE NOT EFFECTIVE AN ADDITIONAL DOSE OF MORPHINE 2MG GIVEN PRESCRIBED.
--- NOTE | 2016-12-21 11:38 | NUR ---
DR FOLEY NOTIFIED OF CONSULT. FOR EGD TOMORROW.
--- NOTE | 2016-12-21 11:52 | NUR ---
PATIENT RESTING IN BED. NO SIGNS OF DISTRESS NOTED. MORPHINE EFFECTIVE.
[2016-12-21 12:00] VITALS: BP 140/95
[2016-12-21 16:00] VITALS: BP 138/85
--- NOTE | 2016-12-21 18:30 | NUR ---
MORPHINE 2MG IV GIVEN PER PATIENT REQUEST FOR ABDOMINAL PAIN RATING 7/10.
[2016-12-21 20:00] VITALS: BP 132/85
--- NOTE | 2016-12-21 20:00 | NUR ---
SITTING UP IN BED WATCHING TV WITH NO DISTRESS NOTED. RESPIRATIONS EASY. LUNGS CLEAR. PULSE OX 94% RA. ABD SOFT WITH HYPOACTIVE BOWEL SOUNDS, DENIES N/V/D. TRACE BLE EDEMA. OFFERED AND EDUCATED REGARDING TEDS, DECLINED. IV FLUIDS INFUSING PER ORDER. CALL LIGHT WITHIN REACH. NO VOICED COMPLAINTS
--- NOTE | 2016-12-21 23:43 | NUR ---
REQUESTED AND RECEIVED MORPHINE IV PER PRN ORDER FOR C/O ABD PAIN RATING A 4. CALL LIGHT WITHIN REACH. WILL MONITOR FOR EFFECTIVENESS
[2016-12-22] VITALS (7 sets, daily range): BP systolic 126–158; BP diastolic 72–92
--- NOTE | 2016-12-22 00:30 | NUR ---
STATES RELIEF FROM EARLIER PAIN MEDS. RESTING IN BED WITH NO DISTRESS NOTED. RESPIRATIONS EASY. VSS. IV FLUIDS INFUSING PER ORDER. CALL LIGHT WITHIN REACH. NPO STATUS DISCUSSED FOR SURGERY, VOICED UNDERSTANDING.
--- NOTE | 2016-12-22 02:30 | NUR ---
CALLING OUT FOR PAIN MEDS. ENTERED ROOM TO SEE PATIENT SITTING UPRIGHT IN BED, DRAMATICALLY SHAKING. PATIENT STATES "IT FEELS LIKE FIRE" POINTING TO EPIGASTRIC AREA. PATIENT SPITTING CLEAR PHLEGM IN BASIN. REQUESTING "MY PAIN SHOT". MEDICATED WITH MORPHINE AND ZOFRAN IV. WHILE MEDICATING, PATIENT QUESTIONS "IS THIS THE DOUBLE DOSE?" EXPLAINED TO PATIENT THAT MORPHINE WAS THE SAME DOSE HE HAS BEEN RECEIVING (2MG), PATIENT THEN QUESTIONS "CAN I HAVE ANOTHER HALF DOSE?" AGAIN EXPLAINED TO PATIENT THAT MORPHINE IS 2 MG Q2H PRN.
--- NOTE | 2016-12-22 03:10 | NUR ---
EARLIER MEDS APPEAR EFFECTIVE. SLEEPING SITTING UP IN BED. RESPIRATIONS EASY. IV FLUIDS MAINTAINED. CALL LIGHT WITHIN REACH
--- NOTE | 2016-12-22 05:58 | NUR ---
PATIENT AGAIN ANXIOUS. C/O NAUSEA AND "CHEST BURNING", MEDICATED WITH PROTONIX IV PER ORDER. ALSO REQUESTED AND RECEIVED MORPHINE FOR C/O ABD PAIN RATING AN 8 - PATIENT NODDING OFF WHILE RECEIVING MORPHINE. IV FLUIDS MAINTAINED. CALL LIGHT WITHIN REACH
[2016-12-22 07:18] LABS: BASO # 0.1 10*3/uL (0.0-0.1); BASO % 0.5 % (0.0-1.0); EOS % 0.2 % (1.0-4.0); HEMATOCRIT 43.6 % (42.0-52.0); HEMOGLOBIN 14.9 g/dl (14.0-18.0); LYMPH # 1.6 10*3/uL (1.3-4.4); LYMPH % 10.9 % (27.0-41.0); MEAN CELL VOLUME 81.8 fl (80.0-94.0); MEAN CORPUSCULAR HGB CONC 34.2 g/dl (33.0-37.0); MEAN PLATELET VOLUME 10.7 fl (9.6-12.3); MONO % 6.6 % (3.0-9.0); NEUT % 81.3 % (47.0-73.0); PLATELET COUNT AUTOMATED 277 10*3/uL (130-400); RED BLOOD COUNT 5.33 10*6/uL (4.50-5.90); RED CELL DISTRI WIDTH 13.5 % (0-14.5); WHITE BLOOD COUNT 14.8 10*3/uL (4.8-10.8)
[2016-12-22 07:34] LABS: ALBUMIN 3.4 gm/dl (3.1-4.5); ALKALINE PHOSPHATASE 80 U/L (45-117); BUN 8 mg/dl (7-24); CHLORIDE 101 mmol/L (98-107); CREATININE 0.64 mg/dL (0.70-1.30); SGOT/AST 45 IU/L (3-35); SGPT/ALT 47 U/L (12-78); SODIUM 138 mmol/L (136-145); TOTAL PROTEIN 7.2 gm/dL (6.4-8.2)
--- NOTE | 2016-12-22 08:00 | NUR ---
IN BED AWAKE ALERT AND ORIENTED X3, NO S/S OF DISTRESS. WILL CONT TO MONITOR. CALL LIGHT IN REACH. SEE ASSESS. LABS REVIEWED.
[2016-12-22] MEDS ORDERED: PROTONIX40 MG PO (15:09)
[2016-12-22] MEDS ORDERED: CARAFATE1 G1 PO (15:09)
[2016-12-22] MEDS ORDERED: REGLAN10 M1 PO (15:09)
[2016-12-22] MEDS ORDERED: ACID GONE TABL1 EACH PO (15:09)
--- NOTE | 2016-12-22 15:40 | NUR ---
IV MORPHINE GIVEN FOR C/O ABDOMINAL PAIN OF 06/19. PT REQUESTED MORPHINE. WILL CONT TO MONITOR. CALL LIGHT IN REACH.
--- NOTE | 2016-12-22 15:59 | NUR ---
PT DISCHARGED AT THIS TIME. IV REMOVED AND PRESSURE DRESSING APPLIED. VERBALIZED UNDERSTANDING OF DISCHARGE INSTRUCTIONS.
== END 2016-12-22 15:59 | disposition home or self-care (01) | DRG 445 ==
LOC: ED 19:38 → 5E 23:52 → EDHOLD 23:52 → 5E 12-19 00:18
PROVIDERS: Hospitalist; Internal Medicine; Nurse Practitioner Family; ADMIT Emergency Medicine
DX: K80.10 Calculus of gallbladder with chronic cholecystitis without obstruction (principal); K22.10 Ulcer of esophagus without bleeding; K29.50 Unspecified chronic gastritis without bleeding; R73.9 Hyperglycemia, unspecified; F12.20 Cannabis dependence, uncomplicated; K29.80 Duodenitis without bleeding; R82.4 Acetonuria; K21.9 Gastro-esophageal reflux disease without esophagitis; K44.9 Diaphragmatic hernia without obstruction or gangrene; K31.89 Other diseases of stomach and duodenum; F41.9 Anxiety disorder, unspecified; Z80.9 Family history of malignant neoplasm, unspecified; Z82.3 Family history of stroke; Z87.11 Personal history of peptic ulcer disease; G43.A1 Cyclical vomiting, in migraine, intractable

== ENCOUNTER 2016-12-23 19:10 | Inpatient (IN) | payer OTHER ==
[~2016-12-23] VITALS: Ht 177.8 cm; Wt 76.3 kg
[~2016-12-23 19:10] MED LIST changes: +ACID GONE TABL1 EACH PO; +REGLAN10 M1 PO
[2016-12-23 19:30] VITALS: BP 112/68
[2016-12-23 20:28] LABS: BASO # 0.1 10*3/uL (0.0-0.1); BASO % 0.5 % (0.0-1.0); EOS # 0.1 10*3/uL (0.0-0.4); EOS % 0.5 % (1.0-4.0); HEMOGLOBIN 15.4 g/dl (14.0-18.0); LYMPH % 12.1 % (27.0-41.0); MEAN CELL VOLUME 79.9 fl (80.0-94.0); MEAN CORPUSCULAR HGB 27.9 pg (27.0-31.0); MEAN PLATELET VOLUME 10.2 fl (9.6-12.3); MONO # 1.4 10*3/uL (0.1-1.0); MONO % 8.6 % (3.0-9.0); NEUT # 12.6 10*3/uL (2.3-7.9); NEUT % 77.9 % (47.0-73.0); PLATELET COUNT AUTOMATED 343 10*3/uL (130-400); RED BLOOD COUNT 5.51 10*6/uL (4.50-5.90); RED CELL DISTRI WIDTH 13.3 % (0-14.5); WHITE BLOOD COUNT 16.2 10*3/uL (4.8-10.8)
--- NOTE | 2016-12-23 20:30 | NUR ---
PATIENT IS NOT TOLERATING K+20ME1/100ML NS IV AT THIS TIME. REQUESTED FOR IT TO BE STOPPED.
[2016-12-23 20:45] LABS: ALBUMIN 3.5 gm/dl (3.1-4.5); ALKALINE PHOSPHATASE 85 U/L (45-117); BUN 11 mg/dl (7-24); CHLORIDE 98 mmol/L (98-107); CREATININE 0.94 mg/dL (0.70-1.30); LIPASE 125 U/L (73-393); POTASSIUM 2.6 mmol/L (3.5-5.1); SGOT/AST 28 IU/L (3-35); SGPT/ALT 44 U/L (12-78); SODIUM 137 mmol/L (136-145); TOTAL PROTEIN 7.7 gm/dL (6.4-8.2)
[2016-12-23 22:00] VITALS: BP 154/92
--- NOTE | 2016-12-23 22:00 | NUR ---
A 31, admitted to , under the services of JAMEY Aguero DO with a diagnosis of HYPOKALEMIA. Chief complaint is DEHYDRATION AND VOMITING. Patient arrived via bed from ER. Monitor applied. Initial assessment completed. Vital signs taken and recorded. JAMEY AGUERO DO notified of admission to the unit. Orders received. See assessment for past medical history, medications and allergies. Patient and/or family oriented to unit. [facility]. Clothing/patient valuable form completed. SRUTHI BACON
--- NOTE | 2016-12-23 23:00 | NUR ---
MED REC UPDATED VIA PATIENT. HE STATES HE TAKES NO HOME MEDICATIONS. HE NEVER GETS HIS PRESCRIPTIONS FILLED BECAUSE HE CAN NOT TAKE PILLS.
[2016-12-24] VITALS: BP 149/98
--- NOTE | 2016-12-24 01:16 | NUR ---
MEDICATED WITH PRN MORPHINE ORDERED FOR C/O STOMACH PAIN RATED A 5
[2016-12-24 02:23] VITALS: BP 142/88
--- NOTE | 2016-12-24 02:23 | NUR ---
RECHECK BP WAS 142/88. PATIENT RESTING IN BED. C/O INTERMITTENT STOMACH PAIN "FROM NOT EATING MUCH" RESPIRATIONS EASY/REGULAR. NO SXS OF DISTRESS. FLUIDS MAINTAINED PER ORDER. CALL LIGHT IS IN REACH.
--- NOTE | 2016-12-24 04:30 | NUR ---
PATIENTS BP 155/103 AUTOMATED BP CUFF. 160/[address] MURPHY NOTIFIED. ORDERS TO ADMINISTER ANOTHER 1X DOSE OF HYDRALAZINE.
--- NOTE | 2016-12-24 04:58 | NUR ---
DR MURPHY NOTIFIED OF PATIENTS HR HANGING IN THE 110S. NO NEW ORDERS AT THIS TIME.
[2016-12-24 08:15] VITALS: BP 149/88
[2016-12-24 11:19] LABS: BASO # 0.1 10*3/uL (0.0-0.1); BASO % 0.4 % (0.0-1.0); EOS # 0.1 10*3/uL (0.0-0.4); EOS % 0.8 % (1.0-4.0); HEMATOCRIT 43.9 % (42.0-52.0); LYMPH # 3.3 10*3/uL (1.3-4.4); LYMPH % 19.6 % (27.0-41.0); MEAN CELL VOLUME 81.6 fl (80.0-94.0); MEAN CORPUSCULAR HGB 27.9 pg (27.0-31.0); MEAN CORPUSCULAR HGB CONC 34.2 g/dl (33.0-37.0); MEAN PLATELET VOLUME 10.5 fl (9.6-12.3); MONO # 1.2 10*3/uL (0.1-1.0); MONO % 7.3 % (3.0-9.0); NEUT # 12.1 10*3/uL (2.3-7.9); NEUT % 71.3 % (47.0-73.0); PLATELET COUNT AUTOMATED 387 10*3/uL (130-400); RED BLOOD COUNT 5.38 10*6/uL (4.50-5.90); RED CELL DISTRI WIDTH 13.7 % (0-14.5)
[2016-12-24 11:37] LABS: BUN 7 mg/dl (7-24); CHLORIDE 102 mmol/L (98-107); CREATININE 0.81 mg/dL (0.70-1.30); POTASSIUM 3.1 mmol/L (3.5-5.1); SODIUM 139 mmol/L (136-145)
[2016-12-24 12:19] VITALS: BP 148/92
[2016-12-24 16:00] VITALS: BP 143/94
[2016-12-24 20:00] VITALS: BP 146/92
--- NOTE | 2016-12-24 21:39 | NUR ---
Spoke with Dr. Burch regarding pt request for hemmorroid cream. New orders received.
[2016-12-25] VITALS: BP 130/79
[2016-12-25 06:23] LABS: BASO # 0.1 10*3/uL (0.0-0.1); BASO % 0.9 % (0.0-1.0); EOS # 0.5 10*3/uL (0.0-0.4); EOS % 4.1 % (1.0-4.0); HEMATOCRIT 40.2 % (42.0-52.0); LYMPH # 4.1 10*3/uL (1.3-4.4); LYMPH % 32.4 % (27.0-41.0); MEAN CELL VOLUME 82.7 fl (80.0-94.0); MEAN CORPUSCULAR HGB 28.8 pg (27.0-31.0); MEAN CORPUSCULAR HGB CONC 34.8 g/dl (33.0-37.0); MEAN PLATELET VOLUME 10.8 fl (9.6-12.3); MONO # 1.1 10*3/uL (0.1-1.0); MONO % 8.3 % (3.0-9.0); NEUT # 6.9 10*3/uL (2.3-7.9); PLATELET COUNT AUTOMATED 315 10*3/uL (130-400); RED BLOOD COUNT 4.86 10*6/uL (4.50-5.90); RED CELL DISTRI WIDTH 13.6 % (0-14.5); WHITE BLOOD COUNT 12.7 10*3/uL (4.8-10.8)
[2016-12-25 06:34] LABS: BUN 5 mg/dl (7-24); CHLORIDE 101 mmol/L (98-107); CREATININE 0.72 mg/dL (0.70-1.30); POTASSIUM 3.2 mmol/L (3.5-5.1); SODIUM 139 mmol/L (136-145)
[2016-12-25 08:00] VITALS: BP 132/90
--- NOTE | 2016-12-25 09:00 | NUR ---
[employer] Department Supervisor in to talk to patient. Patient states lives at home with family. There are few steps in the home. Physician: Pharmacy: no jacques Home health services: none Patient's level of ADLs: INDEPENDENT Patient has working utilities: all working DME: none Follow-up physician's appointment after d/c: will be made by hospitalist nurse director upon discharge Does patient want to access PORTAL?: no Discharge plan discussed with patient, patient lives at home, is independent in adls and ambulation, states he will be going back home when able and denies any home needs. NATHAN VINSON
[2016-12-25 12:00] VITALS: BP 134/78
[2016-12-25] MEDS ORDERED: ZOFRAN ODT4 MG SL (14:21)
[2016-12-25] MEDS ORDERED: PREPARATION H CR1 OZ R (14:21)
[2016-12-25] MEDS ORDERED: Carafate1 GM/10 ML PO (14:21)
[2016-12-25] MEDS ORDERED: PROTONIX40 MG PO (14:21)
--- NOTE | 2016-12-25 14:32 | NUR ---
DISCHARGED TO HOME PT VERBALIZED GOOD KNOWLEDGE OF FOLLOW UP CARE
--- NOTE | 2016-12-25 15:26 | NUR ---
DC TO HOME
== END 2016-12-25 15:26 | disposition home or self-care (01) | DRG 641 ==
LOC: ED 19:10 → EDHOLD 21:08 → 4E 21:08
PROVIDERS: Emergency Medicine; Internal Medicine; ADMIT Internal Medicine
DX: E87.6 Hypokalemia (principal); K26.9 Duodenal ulcer, unspecified as acute or chronic, without hemorrhage or perforation; K22.10 Ulcer of esophagus without bleeding; E55.9 Vitamin D deficiency, unspecified; F41.9 Anxiety disorder, unspecified; F12.10 Cannabis abuse, uncomplicated; K21.0 Gastro-esophageal reflux disease with esophagitis; K80.20 Calculus of gallbladder without cholecystitis without obstruction; K29.50 Unspecified chronic gastritis without bleeding; D72.829 Elevated white blood cell count, unspecified; R00.0 Tachycardia, unspecified; Z79.899 Other long term (current) drug therapy; Z82.3 Family history of stroke

== ENCOUNTER 2017-02-28 14:24 | Inpatient (IN) | payer OTHER ==
[~2017-02-28] VITALS: Ht 180.3 cm; Wt 75.1 kg
[~2017-02-28 14:24] MED LIST changes: +PREPARATION H CR1 OZ R
[2017-02-28 14:27] VITALS: BP 132/80
[2017-02-28 14:53] LABS: BASO # 0.1 10*3/uL (0.0-0.1); BASO % 0.9 % (0.0-1.0); EOS # 0.2 10*3/uL (0.0-0.4); EOS % 1.5 % (1.0-4.0); HEMATOCRIT 45.8 % (42.0-52.0); HEMOGLOBIN 15.7 g/dl (14.0-18.0); LYMPH # 2.5 10*3/uL (1.3-4.4); LYMPH % 17.7 % (27.0-41.0); MEAN CELL VOLUME 83.1 fl (80.0-94.0); MEAN CORPUSCULAR HGB 28.5 pg (27.0-31.0); MEAN CORPUSCULAR HGB CONC 34.3 g/dl (33.0-37.0); MEAN PLATELET VOLUME 10.6 fl (9.6-12.3); MONO # 0.7 10*3/uL (0.1-1.0); MONO % 5.3 % (3.0-9.0); NEUT # 10.3 10*3/uL (2.3-7.9); NEUT % 74.2 % (47.0-73.0); PLATELET COUNT AUTOMATED 312 10*3/uL (130-400); RED BLOOD COUNT 5.51 10*6/uL (4.50-5.90); RED CELL DISTRI WIDTH 13.2 % (0-14.5); WHITE BLOOD COUNT 13.9 10*3/uL (4.8-10.8)
[2017-02-28 15:11] LABS: ALBUMIN 4.4 gm/dl (3.1-4.5); ALKALINE PHOSPHATASE 80 U/L (45-117); BUN 9 mg/dl (7-24); CHLORIDE 105 mmol/L (98-107); CREATININE 0.93 mg/dL (0.70-1.30); LIPASE 184 U/L (73-393); POTASSIUM 3.6 mmol/L (3.5-5.1); SGOT/AST 18 IU/L (3-35); SGPT/ALT 27 U/L (12-78); SODIUM 139 mmol/L (136-145); TOTAL PROTEIN 7.9 gm/dL (6.4-8.2)
[2017-02-28 19:30] VITALS: BP 146/88
--- NOTE | 2017-02-28 19:30 | NUR ---
A 31, admitted to 5E, under the services of THOMAS Vera DO with a diagnosis of . Chief complaint is NAUSEA/VOMITING. Patient arrived via ambulatory from ER. Monitor applied. Initial assessment completed. Vital signs taken and recorded. THOMAS VERA DO notified of admission to the unit. Orders received. See assessment for past medical history, medications and allergies. Patient and/or family oriented to unit. Clothing/patient valuable form completed. JADE BROWNE
[2017-02-28 20:00] VITALS: BP 146/88; BP 167/106
--- NOTE | 2017-02-28 20:43 | NUR ---
NURSE WAS TOLD
--- NOTE | 2017-02-28 22:19 | NUR ---
PT. REQUESTED PRN PAIN MEDICATION FOR ABDOMINAL PAIN 07/19 AT THIS TIME. PRN MED GIVEN AT THIS TIME, WILL ASSESS FOR EFFECTIVENESS.
--- NOTE | 2017-02-28 22:46 | NUR ---
PT. STATED RELIEF OF PAIN AT THIS TIME. PRN PAIN MEDICATION EFFECTIVE.
[2017-03-01] VITALS: BP 150/80; BP 175/87
--- NOTE | 2017-03-01 04:03 | NUR ---
PT. C/O ABD. PAIN 08/19 AT THIS TIME, REQUESTED PRN PAIN MED. PRN PAIN MED ADM. AT THIS TIME, WILL EVALUATE EFFECTIVENESS.
--- NOTE | 2017-03-01 04:27 | NUR ---
PT. REQUESTED PRN MED FOR NAUSEA AT THIS TIME. ZOFRAN ADM. AT THIS TIME, WILL EVALUATE EFFECTIVENESS.
[2017-03-01 07:09] LABS: BASO % 0.2 % (0.0-1.0); HEMATOCRIT 40.6 % (42.0-52.0); HEMOGLOBIN 13.8 g/dl (14.0-18.0); LYMPH # 1.5 10*3/uL (1.3-4.4); LYMPH % 11.9 % (27.0-41.0); MEAN CORPUSCULAR HGB 27.9 pg (27.0-31.0); MEAN PLATELET VOLUME 11.3 fl (9.6-12.3); MONO # 0.9 10*3/uL (0.1-1.0); MONO % 6.5 % (3.0-9.0); NEUT # 10.5 10*3/uL (2.3-7.9); PLATELET COUNT AUTOMATED 285 10*3/uL (130-400); RED BLOOD COUNT 4.95 10*6/uL (4.50-5.90); RED CELL DISTRI WIDTH 13.2 % (0-14.5)
[2017-03-01 07:28] LABS: BUN 7 mg/dl (7-24); CHLORIDE 105 mmol/L (98-107); CHOLESTEROL 150 mg/dL (<200); HDL CHOLESTEROL 47 mg/dl (40-60); LDL CHOLESTEROL 89 mg/dL (9-159); PHOSPHOROUS 3.6 mg/dL (2.5-4.9); POTASSIUM 3.5 mmol/L (3.5-5.1); SODIUM 142 mmol/L (136-145); TRIGLYCERIDES 70 mg/dl (<150); VLDL CHOLESTEROL 14 mg/dL (6-40)
[2017-03-01 07:41] LABS: ACT PARTIAL THROMBO TIME 21.6 SECONDS (20.8-31.5)
[2017-03-01 08:00] VITALS: BP 129/84
--- NOTE | 2017-03-01 08:30 | NUR ---
Physician Relations Manager in to talk to patient. Patient states lives at home with his parents. There are 27 steps in the home. Physician: no family physician Pharmacy: [facility] Home health services: none Patient's level of ADLs: INDEPENDENT Patient has working utilities: yes DME: none Follow-up physician's appointment after d/c: will be made by hospitalist nurse director upon discharge Does patient want to access PORTAL?: no Discharge plan discussed with patient. He lives at home with his parents. He is independent in his ADLs and ambulation. Denies any home needs at this time. When medically stable he will be discharged to home. FARZANA MALLOY
[2017-03-01 09:16] LABS: VITAMIN D, 25-HYDROXY 16.1 ng/mL (30-100)
[2017-03-01 12:00] VITALS: BP 125/76
[2017-03-01 16:00] VITALS: BP 123/79
--- NOTE | 2017-03-01 19:30 | NUR ---
PT. AWAKE, ALERT AND ORIENTED X 3 AT THIS TIME. PT. IN BED AT THIS TIME, PT. CURRENTLY DENIES SOB ON RA, LUNGS CLEAR T/O. HRR, PPP, NO EDEMA, DENIES CP AT THIS TIME. PT. STATED HE "HAS NOT VOMITED ALL DAY," AND STATED HIS NAUSEA HAS NOT RECURRED AFTER RESUMING THE REGULAR DIET, BOWEL SOUNDS NORMO X 4 QUADS. PT. IS AMBULATORY WITH SKIN W/D/I. CALL LIGHT WITHIN REACH, BED IN LOWEST POSITION, WHEELS LOCKED.
[2017-03-01 20:00] VITALS: BP 135/84
--- NOTE | 2017-03-01 22:42 | NUR ---
PT. REQUESTED TYLENOL AT THIS TIME FOR ABD TO LOW BACK PAIN 08/19. PRN TYLENOL SCANNED AND OPENED FOR PT. PRIOR TO ADM. PT. STATED HE "DOES NOT TAKE PILLS," BUT "WILL TRY IF THE PAIN COMES BACK." TYLENOL LOCKED IN [place] AT THIS TIME, IF UNUSED BY END OF SHIFT, WILL HAVE ANOTHER NURSE DISCARD MED ALONG WITH THIS NURSE WITH A NOTE WHEN THE MED IS DISCARDED.
[2017-03-01 23:00] VITALS: BP 132/85
[2017-03-02 08:00] VITALS: BP 135/90
--- NOTE | 2017-03-02 08:00 | NUR ---
Coal Gasification Technician in to see patient. No new needs or request at this time. When medically stable he will be discharged to home.
--- NOTE | 2017-03-02 09:54 | NUR ---
PT REFUSED SCHEDULALED 10 ANM MEDS AND IS WAITING FOR DR TO ROUND.
[2017-03-02] MEDS ORDERED: METOCLOPRAMIDE H5 M1 PO (11:51)
[2017-03-02] MEDS ORDERED: Carafate1 GM PO (11:51)
[2017-03-02] MEDS ORDERED: Vitamin D PO (11:51)
[2017-03-02] MEDS ORDERED: PANTOPRAZOLE SO40 MG PO (11:51)
[2017-03-02 12:00] VITALS: BP 145/96
--- NOTE | 2017-03-02 13:21 | NUR ---
Discharge instructions reviewed with patient/family. Patient receptive and verbalizes understanding. Follow-up care arranged. Written instructions given to patient/family. KALA TURNER
[2017-03-02 15:10] LABS: H PYLORI IGG AB 162289 <0.9 U/mL (0.0-0.8); H.PYLORI IGM <9.0 units (0.0-8.9); H.PYLORI IgA 163170 <9.0 units (0.0-8.9)
== END 2017-03-02 13:32 | disposition home or self-care (01) | DRG 445 ==
LOC: ED 14:24 → EDHOLD 17:41 → 5E 17:41
PROVIDERS: Internal Medicine Nephrology; Physician Assistant; ADMIT Internal Medicine
DX: K80.20 Calculus of gallbladder without cholecystitis without obstruction (principal); K22.10 Ulcer of esophagus without bleeding; K26.9 Duodenal ulcer, unspecified as acute or chronic, without hemorrhage or perforation; D72.810 Lymphocytopenia; D72.829 Elevated white blood cell count, unspecified; K21.0 Gastro-esophageal reflux disease with esophagitis; K29.50 Unspecified chronic gastritis without bleeding; R73.9 Hyperglycemia, unspecified; F41.9 Anxiety disorder, unspecified; E55.9 Vitamin D deficiency, unspecified; Z79.899 Other long term (current) drug therapy; Z82.3 Family history of stroke; Z80.8 Family history of malignant neoplasm of other organs or systems

== ENCOUNTER 2017-03-03 14:47 | Inpatient (IN) | payer OTHER ==
[~2017-03-03] VITALS: Ht 180.3 cm; Wt 75.4 kg
[~2017-03-03 14:47] MED LIST changes: +METOCLOPRAMIDE H5 M1 PO; +PANTOPRAZOLE SO40 MG PO; +Vitamin D PO
[2017-03-03 14:53] VITALS: BP 142/90
[2017-03-03 15:22] LABS: BASO # 0.1 10*3/uL (0.0-0.1); BASO % 1.1 % (0.0-1.0); EOS # 0.2 10*3/uL (0.0-0.4); EOS % 1.5 % (1.0-4.0); HEMATOCRIT 46.7 % (42.0-52.0); HEMOGLOBIN 16.2 g/dl (14.0-18.0); LYMPH # 1.9 10*3/uL (1.3-4.4); LYMPH % 18.2 % (27.0-41.0); MEAN CELL VOLUME 80.4 fl (80.0-94.0); MEAN CORPUSCULAR HGB 27.9 pg (27.0-31.0); MEAN CORPUSCULAR HGB CONC 34.7 g/dl (33.0-37.0); MEAN PLATELET VOLUME 10.6 fl (9.6-12.3); MONO # 0.8 10*3/uL (0.1-1.0); MONO % 7.8 % (3.0-9.0); NEUT # 7.4 10*3/uL (2.3-7.9); PLATELET COUNT AUTOMATED 319 10*3/uL (130-400); RED BLOOD COUNT 5.81 10*6/uL (4.50-5.90); RED CELL DISTRI WIDTH 13.2 % (0-14.5); WHITE BLOOD COUNT 10.4 10*3/uL (4.8-10.8)
[2017-03-03 15:38] LABS: ALBUMIN 4.2 gm/dl (3.1-4.5); ALKALINE PHOSPHATASE 80 U/L (45-117); BUN 12 mg/dl (7-24); CHLORIDE 103 mmol/L (98-107); CREATININE 1.03 mg/dL (0.70-1.30); LIPASE 110 U/L (73-393); POTASSIUM 3.2 mmol/L (3.5-5.1); SGOT/AST 61 IU/L (3-35); SGPT/ALT 87 U/L (12-78); SODIUM 140 mmol/L (136-145); TOTAL PROTEIN 7.8 gm/dL (6.4-8.2)
--- NOTE | 2017-03-03 17:13 | NUR ---
SALINE INFUSING AT TIME OF ADMISSION
[2017-03-03 17:15] VITALS: BP 162/100
[2017-03-03 17:55] VITALS: BP 152/102
--- NOTE | 2017-03-03 17:55 | NUR ---
Time: 1754 A 31 year old MALE admitted to 5E under services of BRANDEN BEAVERS DO. Pt. arrived via stretcher from ER. Chief complaint: NAUSEA/VOMITING. [place]
--- NOTE | 2017-03-03 18:33 | NUR ---
DR SOARES NOTIFIED THAT MEDS WERE VERIFIED WITH PATIENTS RECENT D/C FROM YESTERDAY. ALSO NOTIFIED DR GO THAT PATIENT HAD AN ELEVATED MANUAL BP.
--- NOTE | 2017-03-03 19:11 | NUR ---
PATIENT MEDICATED WITH IVP ZOFRAN FOR NAUSEA AND VOMITING.
--- NOTE | 2017-03-03 19:20 | NUR ---
DR Fazal ANTONIO ON FLOOR TO ASSESS PATIENT AND DISCUSS PLAN OF CARE
[2017-03-03 20:00] VITALS: BP 138/88; BP 138/96
--- NOTE | 2017-03-03 20:05 | NUR ---
PATIENT APPEARS ANXIOUS. REPEATEDLY ORE MIXER LIGHT ASKING FOR "MORPHINE AND ICE CHIPS." PATIENT AMBULATING ABOUT ROOM. UPON ENTERING, PATIENT ASKS "IS THAT MY MORPHINE"; EXPLAINED TO PATIENT THAT IT IS. PATIENT THEN QUESTIONS MORPHINE DOSE. COMPLAINS OF "BURNING" AND GRABS EMESIS BAG AND FORCEFULLY ATTEMPTS TO VOMIT. ATTEMPTED TO EXPLAIN TO PATIENT THAT MORPHINE WILL NOT HELP WITH BURNING TO WHICH PATIENT REPLIES "YEAH." MEDICATED PER PRN ORDER. IV FLUIDS INFUSING PER ORDER. WILL MONITOR
[2017-03-03 20:58] LABS: BILIRUBIN NEGATIVE (NEGATIVE); BLOOD NEGATIVE (NEGATIVE); CLARITY CLEAR (CLEAR); COLOR YELLOW (YELLOW); GLUCOSE NEGATIVE (NEGATIVE); KETONE 3+ (NEGATIVE); LEUKO ESTERASE NEGATIVE (NEGATIVE); NITRITE NEGATIVE (NEGATIVE); PH 6.5 (5.0-9.0); UROBILINOGEN 0.2 E.U./dl (0.2-1.0)
--- NOTE | 2017-03-03 21:00 | NUR ---
STATES RELIEF FROM EARLIER MEDS. RESTING IN BED WATCHING TV. RESPIRATIONS EASY. IV FLUIDS MAINTAINED. CALL LIGHT WITHIN REACH
[2017-03-03 21:10] LABS: MUCOUS 1+; RBC 0-2 rbc/hpf (0-2)
[2017-03-04] VITALS: BP 133/89
--- NOTE | 2017-03-04 00:07 | NUR ---
REQUESTED AND RECEIVED MORPHINE AND ZOFRAN IV FOR COMPLAINTS OF ABD BURNING AND PAIN AND NAUSEA. CALL LIGHT WITHIN REACH. WILL MONITOR FOR EFFECTIVENESS
--- NOTE | 2017-03-04 01:00 | NUR ---
MEDS APPEAR EFFECTIVE. SLEEPING. RESPIRATIONS EASY. IV FLUIDS MAINTAINED
--- NOTE | 2017-03-04 03:00 | NUR ---
CONTINUES TO SLEEP. RESPIRATIONS EASY. IV FLUIDS MAINTAINED. CALL LIGHT WITHIN REACH
--- NOTE | 2017-03-04 05:19 | NUR ---
REQUESTED AND RECEIVED MORPHINE IV PER PRN ORDER FOR COMPLAINTS OF ABD PAIN RATING A 5. ALSO RECEIVED ZOFRAN TO ASSIST WITH NAUSEA.
--- NOTE | 2017-03-04 06:10 | NUR ---
STATES RELIEF FROM EARLIER MEDS
[2017-03-04 06:45] LABS: BASO # 0.1 10*3/uL (0.0-0.1); BASO % 0.6 % (0.0-1.0); EOS # 0.2 10*3/uL (0.0-0.4); EOS % 1.3 % (1.0-4.0); HEMATOCRIT 43.5 % (42.0-52.0); HEMOGLOBIN 14.8 g/dl (14.0-18.0); LYMPH % 29.7 % (27.0-41.0); MEAN CELL VOLUME 83.3 fl (80.0-94.0); MEAN CORPUSCULAR HGB 28.4 pg (27.0-31.0); MONO # 1.1 10*3/uL (0.1-1.0); MONO % 8.3 % (3.0-9.0); NEUT # 8.1 10*3/uL (2.3-7.9); NEUT % 59.8 % (47.0-73.0); PLATELET COUNT AUTOMATED 263 10*3/uL (130-400); RED BLOOD COUNT 5.22 10*6/uL (4.50-5.90); RED CELL DISTRI WIDTH 13.2 % (0-14.5); WHITE BLOOD COUNT 13.5 10*3/uL (4.8-10.8)
[2017-03-04 06:57] LABS: ALBUMIN 3.6 gm/dl (3.1-4.5); ALKALINE PHOSPHATASE 70 U/L (45-117); BUN 7 mg/dl (7-24); CHLORIDE 103 mmol/L (98-107); CREATININE 1.04 mg/dL (0.70-1.30); LIPASE 106 U/L (73-393); POTASSIUM 3.3 mmol/L (3.5-5.1); SGOT/AST 39 IU/L (3-35); SGPT/ALT 69 U/L (12-78); SODIUM 138 mmol/L (136-145)
[2017-03-04 08:00] VITALS: BP 140/90
[2017-03-04 08:28] LABS: VITAMIN D, 25-HYDROXY 14.4 ng/mL (30-100)
[2017-03-04 12:00] VITALS: BP 140/82
--- NOTE | 2017-03-04 16:39 | NUR ---
PATIENT SIGNED OUT AMA. DR GO AWARE.
== END 2017-03-04 16:39 | disposition left against medical advice (07) | DRG 446 ==
LOC: ED 14:47 → EDHOLD 16:32 → 5E 16:45
PROVIDERS: Emergency Medicine; Family Medicine; ADMIT Emergency Medicine
DX: K80.70 Calculus of gallbladder and bile duct without cholecystitis without obstruction (principal); E87.6 Hypokalemia; F12.10 Cannabis abuse, uncomplicated; F41.9 Anxiety disorder, unspecified; K29.50 Unspecified chronic gastritis without bleeding; K21.0 Gastro-esophageal reflux disease with esophagitis; Z53.21 Procedure and treatment not carried out due to patient leaving prior to being seen by health care provider; K44.9 Diaphragmatic hernia without obstruction or gangrene; Z80.9 Family history of malignant neoplasm, unspecified; Z82.3 Family history of stroke; Z81.2 Family history of tobacco abuse and dependence; Z79.899 Other long term (current) drug therapy

== ENCOUNTER 2017-06-18 23:44 | Inpatient (IN) | payer OTHER ==
[~2017-06-18] VITALS: Ht 180.3 cm; Wt 76.7 kg
--- NOTE | ~2017-06-18 | O ---
[place], [place] OPERATIVE NOTE NAME: KRISTINA HATFIELD UNIT #: [id number] ROOM: 516 DOCTOR: NIMCO FOLEY MD BIRTHDATE: [birth year] DOS: 06/19/2017 INDICATIONS: A 32-year-old patient, who presented with chief complaint of epigastric distress, nausea, vomiting, undergoing investigation. PROCEDURE: Today's procedure part of investigation is panendoscopy plus biopsy. PREMEDICATION: Versed and Diprivan. SCOPE: Olympus forward-viewing gastroscope Q10 video. REPORT: After putting the patient in left lateral position and application of lubricant to the scope, the scope was introduced; thereafter, under direct visualization, advanced through the length of esophagus. Lower third of the esophagus was entirely ulcerated secondary to reflux, hiatal hernia approximately 4 cm was noticed. Gastric pouch was entered. Gastritis seen. Duodenal bulb, second and third part patent. Scope was withdrawn back to the esophagus, photographed, biopsied. Air was suctioned out. The patient was extubated, tolerated procedure well. IMPRESSION: 1. Reflux, distal esophageal ulcers rather intense. 2. A 4 cm hiatal hernia. 3. Gastritis and bile reflux. PLAN AND DISCUSSION: This patient has to be treated for antireflux measures, elevation of the head of the bed always, Gaviscon Extra Strength 1 at bedtime, needs to remain on a PPI at least Protonix or omeprazole 40 mg daily. At the present time while he is inpatient, we are going to treat his esophagus also with sucralfate 2 grams slurry q.i.d., before meals and at bedtime. Also, we are going to treat him at 2.5 mg of Reglan before dinner to see first if he does not develop extrapyramidal side effect and if it does not, then we can increase it to 5 mg and follow him as an outpatient. IMPRESSION: Diffuse distal esophageal ulceration, hiatal hernia, gastritis and reflux. PLAN: As identified above. [place], [place] OPERATIVE NOTE NAME: KRISTINA HATFIELD UNIT #: [id number] ROOM: 516 DOCTOR: NIMCO FOLEY MD BIRTHDATE: [birth year] NIMCO FOLEY MD CM:BETITO:OPERATIVE NOTE 1454 [id number] NIMCO FOLEY MD 06/20/17 1612 interface
--- NOTE | ~2017-06-18 | CON ---
[place], [place] REPORT OF CONSULTATION NAME[id number] UNIT #: [id number] ROOM: 516 DOCTOR: ALAINA RAINBRANDOCARLTON BIRTHDATE: [birth year] DOS: 06/20/2017 HISTORY OF PRESENT ILLNESS: A 32-year-old patient who presented with recurrent nausea, vomiting, undergoing investigation. The patient has been sick for past 2 days. Eventually, decides to come to the hospital for reassessment and was found to have white blood cell of 21 with H and H of 14 and 43. Lipase level 78. COMPREHENSIVE METABOLIC PANEL: BUN and creatinine, normal electrolyte potassium was 3.3. Liver function tests normal. Lactic acid was 3.2. Chest x-ray, no acute pulmonary pathology. Troponin was normal. Lactic acid corrected by next morning. Troponin remains normal. Comprehensive metabolic panel remained essentially borderline normal. His CT scan of the abdomen and pelvis was done, no acute findings. Small hiatal hernia was noticed. We are assessing etiology for his nausea, vomiting and epigastric distress, dyspepsia. The patient has had 12/2016, distal esophageal ulceration. PAST MEDICAL HISTORY: Chronic gastritis, hiatal hernia, gastroesophageal reflux, esophageal ulcer, and anxiety. PAST SURGICAL HISTORY: Endoscopy of upper tract. SOCIAL HISTORY: Cannabis user, nonalcohol consumer. FAMILY HISTORY: Noncontributory. ALLERGIES: To no known medications. MEDICATIONS: Medication at home is none. REVIEW OF SYSTEMS: HEENT: Denies double vision, or blurred vision. RESPIRATORY: Denies shortness of breath. CARDIOVASCULAR: Denies acute chest pain. DIGESTIVE SYSTEM: Nausea, vomiting, and epigastric distress. PHYSICAL EXAMINATION: GENERAL: Nontoxic. HEENT: Head normocephalic, nontraumatic. Mouth and buccal mucosa benign. NECK: Supple, no thyromegaly, no cervical lymphadenopathy. CHEST: Symmetric anatomy, equal expansion. No wheeze, no rhonchi. HEART: Normal sinus rhythm, no gallop, no murmur. ABDOMEN: Soft. No hepato-organomegaly. Bowel sounds present. No pulsatile mass. EXTREMITIES: No cyanosis, no pedal edema. NEUROLOGIC: Alert, oriented to time, place, person. IMPRESSION: Epigastric abdominal pain, nausea, vomiting. CT scan reviewed. Laboratory values was assessed, leukocytosis of 21, which has subsided to 14 was noticed. The patient also had been complaining of diarrhea when reassessed and [place], [place] REPORT OF CONSULTATION NAME: KRISTINA HATFIELD UNIT #: [id number] ROOM: 516 DOCTOR: NIMCO FOLEY MD BIRTHDATE: [birth year] qualified and quantified, appears to be periodically 1-3 soft bowel movement and does not match with a history of diarrhea. PLAN AND DISCUSSION: We are going to proceed with endoscopic assessment of upper tract source of his nausea is going to be assessed. Especially, in the view of the fact, the patient has had distal esophageal ulcers in the past. CT scan otherwise declared pancreas, spleen, adrenal gland, kidneys to be free of pathology and gallbladder as well. No obvious pathology has been reported. Pelvic CT, no bowel thickening. No free fluid, no free air. NIMCO FOLEY MD CM:CONSTR:REPORT OF CONSULTATION 1439 06/21/17 0413 interface
[2017-06-18 23:44] VITALS: BP 145/97
[2017-06-19] VITALS (8 sets, daily range): BP systolic 110–151; BP diastolic 68–99
[2017-06-19 00:11] LABS: BASO # 0.1 10*3/uL (0.0-0.1); BASO % 0.2 % (0.0-1.0); HEMATOCRIT 43.5 % (42.0-52.0); HEMOGLOBIN 14.9 g/dl (14.0-18.0); LYMPH # 1.3 10*3/uL (1.3-4.4); LYMPH % 5.9 % (27.0-41.0); MEAN CELL VOLUME 81.2 fl (80.0-94.0); MEAN CORPUSCULAR HGB 27.8 pg (27.0-31.0); MEAN CORPUSCULAR HGB CONC 34.3 g/dl (33.0-37.0); MEAN PLATELET VOLUME 10.2 fl (9.6-12.3); MONO # 0.8 10*3/uL (0.1-1.0); MONO % 3.8 % (3.0-9.0); NEUT # 19.6 10*3/uL (2.3-7.9); NEUT % 89.7 % (47.0-73.0); PLATELET COUNT AUTOMATED 316 10*3/uL (130-400); RED BLOOD COUNT 5.36 10*6/uL (4.50-5.90); RED CELL DISTRI WIDTH 13.6 % (0-14.5); WHITE BLOOD COUNT 21.8 10*3/uL (4.8-10.8)
[2017-06-19 00:26] LABS: ALBUMIN 4.7 gm/dl (3.1-4.5); ALKALINE PHOSPHATASE 79 U/L (45-117); BUN 11 mg/dl (7-24); CHLORIDE 99 mmol/L (98-107); CREATININE 1.22 mg/dL (0.70-1.30); POTASSIUM 3.3 mmol/L (3.5-5.1); SGOT/AST 19 IU/L (3-35); SGPT/ALT 27 U/L (12-78); SODIUM 136 mmol/L (136-145); TOTAL PROTEIN 8.8 gm/dL (6.4-8.2)
[2017-06-19 05:52] LABS: ALBUMIN 4.3 gm/dl (3.1-4.5); ALKALINE PHOSPHATASE 68 U/L (45-117); BUN 11 mg/dl (7-24); CHLORIDE 103 mmol/L (98-107); CREATININE 0.88 mg/dL (0.70-1.30); PHOSPHOROUS 2.6 mg/dL (2.5-4.9); POTASSIUM 3.5 mmol/L (3.5-5.1); SGOT/AST 16 IU/L (3-35); SGPT/ALT 21 U/L (12-78); SODIUM 139 mmol/L (136-145)
[2017-06-19 06:01] LABS: BASO % 0.1 % (0.0-1.0); HEMATOCRIT 40.6 % (42.0-52.0); HEMOGLOBIN 14.1 g/dl (14.0-18.0); LYMPH # 1.2 10*3/uL (1.3-4.4); MEAN CELL VOLUME 81.5 fl (80.0-94.0); MEAN CORPUSCULAR HGB 28.3 pg (27.0-31.0); MEAN CORPUSCULAR HGB CONC 34.7 g/dl (33.0-37.0); MEAN PLATELET VOLUME 10.7 fl (9.6-12.3); MONO # 0.8 10*3/uL (0.1-1.0); MONO % 4.6 % (3.0-9.0); NEUT # 14.8 10*3/uL (2.3-7.9); NEUT % 87.8 % (47.0-73.0); PLATELET COUNT AUTOMATED 270 10*3/uL (130-400); RED BLOOD COUNT 4.98 10*6/uL (4.50-5.90); RED CELL DISTRI WIDTH 13.6 % (0-14.5); WHITE BLOOD COUNT 16.8 10*3/uL (4.8-10.8)
[2017-06-19 06:13] LABS: ACT PARTIAL THROMBO TIME 20.7 SECONDS (20.8-31.5)
[2017-06-19 07:09] LABS: VITAMIN D, 25-HYDROXY 16.1 ng/mL (30-100)
[2017-06-20] VITALS (8 sets, daily range): BP systolic 122–161; BP diastolic 80–99
[2017-06-20 06:56] LABS: BASO # 0.1 10*3/uL (0.0-0.1); BASO % 0.8 % (0.0-1.0); EOS # 0.2 10*3/uL (0.0-0.4); EOS % 1.1 % (1.0-4.0); HEMATOCRIT 42.1 % (42.0-52.0); HEMOGLOBIN 13.9 g/dl (14.0-18.0); LYMPH # 3.9 10*3/uL (1.3-4.4); LYMPH % 27.6 % (27.0-41.0); MEAN CORPUSCULAR HGB 27.7 pg (27.0-31.0); MEAN PLATELET VOLUME 10.4 fl (9.6-12.3); MONO % 7.4 % (3.0-9.0); NEUT # 8.8 10*3/uL (2.3-7.9); NEUT % 62.7 % (47.0-73.0); PLATELET COUNT AUTOMATED 238 10*3/uL (130-400); RED BLOOD COUNT 5.01 10*6/uL (4.50-5.90); RED CELL DISTRI WIDTH 14.1 % (0-14.5)
[2017-06-20 07:31] LABS: BUN 8 mg/dl (7-24); CHLORIDE 104 mmol/L (98-107); CREATININE 0.84 mg/dL (0.70-1.30); POTASSIUM 3.6 mmol/L (3.5-5.1); SODIUM 139 mmol/L (136-145)
[2017-06-20] MEDS ORDERED: Carafate1 GM/10 ML PO (16:22)
[2017-06-20] MEDS ORDERED: ONDANSETRON4 MG/2 M3 IV (16:22)
[2017-06-20] MEDS ORDERED: METOCLOPRAMIDE H5 M1 PO (16:22)
[2017-06-20] MEDS ORDERED: PROTONIX40 M1 PO (16:22)
[2017-06-20] MEDS ORDERED: MARINOL2.5 M1 PO (16:22)
[2017-06-20] MEDS ORDERED: VITAMIN D31000 UNI1 PO (16:22)
[2017-06-21] VITALS: BP 132/82
[2017-06-21 08:00] VITALS: BP 132/78
[2017-06-21 12:00] VITALS: BP 129/83
== END 2017-06-21 14:33 | disposition home or self-care (01) | DRG 381 ==
LOC: ED 23:44 → 5E 06-19 01:12 → EDHOLD 06-19 01:12 → 5E 06-19 01:30
PROVIDERS: Internal Medicine; Student in an Organized Health Care Education/Training Program
PROC: 0DB58ZX Excision of Esophagus, Via Natural or Artificial Opening Endoscopic, Diagnostic (ICD-10-PCS; principal; 2017-06-19)
PROC: 0DB68ZX Excision of Stomach, Via Natural or Artificial Opening Endoscopic, Diagnostic (ICD-10-PCS; 2017-06-19)
DX: K22.10 Ulcer of esophagus without bleeding (principal); R65.10 Systemic inflammatory response syndrome (SIRS) of non-infectious origin without acute organ dysfunction; K80.50 Calculus of bile duct without cholangitis or cholecystitis without obstruction; E86.0 Dehydration; R10.9 Unspecified abdominal pain; E87.6 Hypokalemia; K29.50 Unspecified chronic gastritis without bleeding; K44.9 Diaphragmatic hernia without obstruction or gangrene; K21.0 Gastro-esophageal reflux disease with esophagitis; R73.9 Hyperglycemia, unspecified; F41.9 Anxiety disorder, unspecified; E55.9 Vitamin D deficiency, unspecified; K80.20 Calculus of gallbladder without cholecystitis without obstruction; K29.70 Gastritis, unspecified, without bleeding; F12.10 Cannabis abuse, uncomplicated

== ENCOUNTER 2017-08-26 14:15 | Inpatient (IN) | payer OTHER ==
[~2017-08-26] VITALS: Ht 177.8 cm; Wt 78.5 kg
[~2017-08-26 14:15] MED LIST changes: +MARINOL2.5 M1 PO; +ONDANSETRON4 MG/2 M3 IV; +PROTONIX40 M1 PO; +VITAMIN D31000 UNI1 PO
[2017-08-26 14:51] VITALS: BP 110/60
[2017-08-26 14:57] LABS: BASO # 0.1 10*3/uL (0.0-0.1); BASO % 0.9 % (0.0-1.0); EOS % 0.2 % (1.0-4.0); HEMATOCRIT 44.8 % (42.0-52.0); HEMOGLOBIN 15.1 g/dl (14.0-18.0); LYMPH # 1.7 10*3/uL (1.3-4.4); LYMPH % 12.6 % (27.0-41.0); MEAN CORPUSCULAR HGB CONC 33.7 g/dl (33.0-37.0); MEAN PLATELET VOLUME 10.4 fl (9.6-12.3); MONO # 0.4 10*3/uL (0.1-1.0); MONO % 2.7 % (3.0-9.0); NEUT # 11.4 10*3/uL (2.3-7.9); NEUT % 82.9 % (47.0-73.0); PLATELET COUNT AUTOMATED 307 10*3/uL (130-400); RED CELL DISTRI WIDTH 13.1 % (0-14.5); WHITE BLOOD COUNT 13.7 10*3/uL (4.8-10.8)
[2017-08-26 15:12] LABS: ALBUMIN 4.4 gm/dl (3.1-4.5); ALKALINE PHOSPHATASE 80 U/L (45-117); BUN 9 mg/dl (7-24); CHLORIDE 105 mmol/L (98-107); LIPASE 120 U/L (73-393); POTASSIUM 3.4 mmol/L (3.5-5.1); SGOT/AST 19 IU/L (3-35); SGPT/ALT 24 U/L (12-78); SODIUM 139 mmol/L (136-145); TOTAL PROTEIN 8.2 gm/dL (6.4-8.2)
[2017-08-26 15:33] VITALS: BP 152/88
[2017-08-26 16:20] LABS: BILIRUBIN NEGATIVE (NEGATIVE); BLOOD TRACE-INTACT (NEGATIVE); CLARITY SL CLOUDY (CLEAR); COLOR YELLOW (YELLOW); GLUCOSE NEGATIVE (NEGATIVE); KETONE 2+ (NEGATIVE); LEUKO ESTERASE NEGATIVE (NEGATIVE); NITRITE NEGATIVE (NEGATIVE); UROBILINOGEN 0.2 E.U./dl (0.2-1.0)
[2017-08-26 16:26] LABS: BACTERIA 1+; EPITHELIAL CELLS 0-2; MUCOUS TRACE; WBC 0-2 wbc/hpf (0-5)
[2017-08-26 16:35] VITALS: BP 152/66
[2017-08-26 18:19] VITALS: BP 127/68
[2017-08-26 20:00] VITALS: BP 153/77
[2017-08-27] VITALS: BP 152/95
[2017-08-27 06:10] LABS: BUN 10 mg/dl (7-24); CHLORIDE 103 mmol/L (98-107); CREATININE 1.02 mg/dL (0.70-1.30); PHOSPHOROUS 2.7 mg/dL (2.5-4.9); POTASSIUM 3.4 mmol/L (3.5-5.1); SODIUM 138 mmol/L (136-145)
[2017-08-27 06:21] LABS: BASO % 0.2 % (0.0-1.0); EOS % 0.1 % (1.0-4.0); HEMATOCRIT 41.8 % (42.0-52.0); HEMOGLOBIN 13.9 g/dl (14.0-18.0); LYMPH # 1.4 10*3/uL (1.3-4.4); LYMPH % 8.1 % (27.0-41.0); MEAN CELL VOLUME 83.1 fl (80.0-94.0); MEAN CORPUSCULAR HGB 27.6 pg (27.0-31.0); MEAN CORPUSCULAR HGB CONC 33.3 g/dl (33.0-37.0); MEAN PLATELET VOLUME 10.9 fl (9.6-12.3); MONO # 0.5 10*3/uL (0.1-1.0); MONO % 2.9 % (3.0-9.0); NEUT # 15.2 10*3/uL (2.3-7.9); NEUT % 88.2 % (47.0-73.0); PLATELET COUNT AUTOMATED 270 10*3/uL (130-400); RED BLOOD COUNT 5.03 10*6/uL (4.50-5.90); RED CELL DISTRI WIDTH 13.2 % (0-14.5); WHITE BLOOD COUNT 17.2 10*3/uL (4.8-10.8)
[2017-08-27 08:00] VITALS: BP 134/68
[2017-08-27 12:00] VITALS: BP 119/61
[2017-08-27 16:00] VITALS: BP 107/49
[2017-08-27 20:00] VITALS: BP 137/84
[2017-08-28] VITALS: BP 118/71
[2017-08-28 07:27] LABS: BASO # 0.1 10*3/uL (0.0-0.1); BASO % 0.5 % (0.0-1.0); EOS # 0.1 10*3/uL (0.0-0.4); EOS % 0.4 % (1.0-4.0); HEMATOCRIT 37.7 % (42.0-52.0); HEMOGLOBIN 12.2 g/dl (14.0-18.0); LYMPH # 3.3 10*3/uL (1.3-4.4); LYMPH % 21.4 % (27.0-41.0); MEAN CELL VOLUME 85.3 fl (80.0-94.0); MEAN CORPUSCULAR HGB 27.6 pg (27.0-31.0); MEAN CORPUSCULAR HGB CONC 32.4 g/dl (33.0-37.0); MEAN PLATELET VOLUME 10.7 fl (9.6-12.3); MONO # 1.1 10*3/uL (0.1-1.0); MONO % 7.2 % (3.0-9.0); NEUT # 10.7 10*3/uL (2.3-7.9); PLATELET COUNT AUTOMATED 213 10*3/uL (130-400); RED BLOOD COUNT 4.42 10*6/uL (4.50-5.90); RED CELL DISTRI WIDTH 13.2 % (0-14.5); WHITE BLOOD COUNT 15.3 10*3/uL (4.8-10.8)
[2017-08-28 07:47] LABS: ALBUMIN 3.5 gm/dl (3.1-4.5); ALKALINE PHOSPHATASE 57 U/L (45-117); BUN 10 mg/dl (7-24); CHLORIDE 108 mmol/L (98-107); CREATININE 0.83 mg/dL (0.70-1.30); POTASSIUM 3.8 mmol/L (3.5-5.1); SGOT/AST 15 IU/L (3-35); SGPT/ALT 19 U/L (12-78); SODIUM 143 mmol/L (136-145); TOTAL PROTEIN 6.5 gm/dL (6.4-8.2)
[2017-08-28 08:00] VITALS: BP 129/81
== END 2017-08-28 10:45 | disposition left against medical advice (07) | DRG 918 ==
LOC: ED 14:15 → 5E 17:09 → EDHOLD 17:09 → 5E 17:34
PROVIDERS: Internal Medicine; Internal Medicine Hospice and Palliative Medicine; Nurse Practitioner Family
DX: T40.7X1A Poisoning by cannabis (derivatives), accidental (unintentional), initial encounter (principal); E87.8 Other disorders of electrolyte and fluid balance, not elsewhere classified; K22.10 Ulcer of esophagus without bleeding; K26.9 Duodenal ulcer, unspecified as acute or chronic, without hemorrhage or perforation; K80.50 Calculus of bile duct without cholangitis or cholecystitis without obstruction; F12.188 Cannabis abuse with other cannabis-induced disorder; G43.A1 Cyclical vomiting, in migraine, intractable; D72.825 Bandemia; E87.6 Hypokalemia; K44.9 Diaphragmatic hernia without obstruction or gangrene; K29.50 Unspecified chronic gastritis without bleeding; F41.9 Anxiety disorder, unspecified; D64.9 Anemia, unspecified; R10.13 Epigastric pain; E55.9 Vitamin D deficiency, unspecified; K21.0 Gastro-esophageal reflux disease with esophagitis; K80.80 Other cholelithiasis without obstruction; Z79.899 Other long term (current) drug therapy; Z82.3 Family history of stroke; Z80.9 Family history of malignant neoplasm, unspecified; Y92.89 Other specified places as the place of occurrence of the external cause

== ENCOUNTER 2018-01-20 17:24 | Emergency (ER) | payer OTHER ==
[~2018-01-20] VITALS: Ht 177.8 cm; Wt 77.1 kg
[2018-01-20 18:14] LABS: HEMATOCRIT 47.1 % (42.0-52.0); HEMOGLOBIN 16.2 g/dl (14.0-18.0); MEAN CELL VOLUME 81.3 fl (80.0-94.0); MEAN CORPUSCULAR HGB CONC 34.4 g/dl (33.0-37.0); MEAN PLATELET VOLUME 10.2 fl (9.6-12.3); PLATELET COUNT AUTOMATED 316 10*3/uL (130-400); RED BLOOD COUNT 5.79 10*6/uL (4.50-5.90); RED CELL DISTRI WIDTH 13.1 % (0-14.5); WHITE BLOOD COUNT 23.7 10*3/uL (4.8-10.8)
[2018-01-20 18:29] LABS: ALBUMIN 4.6 gm/dl (3.1-4.5); ALKALINE PHOSPHATASE 73 U/L (45-117); BUN 14 mg/dl (7-24); CHLORIDE 105 mmol/L (98-107); CREATININE 1.12 mg/dL (0.70-1.30); POTASSIUM 3.5 mmol/L (3.5-5.1); SGOT/AST 13 IU/L (3-35); SGPT/ALT 26 U/L (12-78); SODIUM 139 mmol/L (136-145); TOTAL PROTEIN 8.8 gm/dL (6.4-8.2)
[2018-01-20 18:34] LABS: BILIRUBIN NEGATIVE (NEGATIVE); BLOOD 1+ (NEGATIVE); CLARITY CLEAR (CLEAR); COLOR YELLOW (YELLOW); GLUCOSE NEGATIVE (NEGATIVE); KETONE 3+ (NEGATIVE); LEUKO ESTERASE NEGATIVE (NEGATIVE); NITRITE NEGATIVE (NEGATIVE); SPECIFIC GRAVITY >= 1.030 (1.005-1.030); UROBILINOGEN 0.2 E.U./dl (0.2-1.0)
[2018-01-20 18:34] LABS: BASOPHILS 1 % (0-1); PLATELET SUFFICIENCY NORMAL (NORMAL); TOTAL CELLS COUNTED 100 #CELLS
[2018-01-20 18:43] LABS: URINE AMPHETAMINES < 1000 (1000ng/ml); URINE BARBITURATES < 200 (200ng/ml); URINE BENZODIAZEPINES < 200 (200ng/ml); URINE CANNABINOIDS (THC) > 50 (50ng/ml); URINE COCAINE < 300 (300ng/ml); URINE METHADONE < 300 (300ng/ml); URINE OPIATES < 300 (300ng/ml)
[2018-01-20 18:44] LABS: URINE PHENCYCLIDINE < 25 (25ng/ml)
[2018-01-20 18:51] LABS: BACTERIA TRACE; MUCOUS TRACE; RBC 0-2 rbc/hpf (0-2)
[2018-01-20] MEDS ORDERED: ZOFRAN ODT4 MG SL (20:13)
== END 2018-01-20 20:52 | disposition home or self-care (01) ==
LOC: ED 17:24
PROVIDERS: Nurse Practitioner Family
DX: R11.2 Nausea with vomiting, unspecified (principal); R42 Dizziness and giddiness

== ENCOUNTER 2018-04-21 13:56 | Inpatient (IN) | payer OTHER ==
[~2018-04-21] VITALS: Ht 180.3 cm; Wt 84.9 kg
[2018-04-21 13:57] VITALS: BP 160/96
[2018-04-21 14:36] LABS: BASO # 0.2 10*3/uL (0.0-0.1); BASO % 1.1 % (0.0-1.0); EOS # 0.1 10*3/uL (0.0-0.4); HEMATOCRIT 45.6 % (42.0-52.0); HEMOGLOBIN 15.7 g/dl (14.0-18.0); LYMPH # 2.7 10*3/uL (1.3-4.4); LYMPH % 18.6 % (27.0-41.0); MEAN CELL VOLUME 84.1 fl (80.0-94.0); MEAN CORPUSCULAR HGB CONC 34.4 g/dl (33.0-37.0); MEAN PLATELET VOLUME 10.5 fl (9.6-12.3); MONO # 0.7 10*3/uL (0.1-1.0); NEUT # 10.7 10*3/uL (2.3-7.9); PLATELET COUNT AUTOMATED 293 10*3/uL (130-400); RED BLOOD COUNT 5.42 10*6/uL (4.50-5.90); RED CELL DISTRI WIDTH 13.2 % (0-14.5); WHITE BLOOD COUNT 14.4 10*3/uL (4.8-10.8)
[2018-04-21 14:53] LABS: ALBUMIN 4.4 gm/dl (3.1-4.5); ALKALINE PHOSPHATASE 74 U/L (45-117); BUN 12 mg/dl (7-24); CHLORIDE 108 mmol/L (98-107); CREATININE 1.07 mg/dL (0.70-1.30); LIPASE 91 U/L (73-393); POTASSIUM 3.5 mmol/L (3.5-5.1); SGOT/AST 15 IU/L (3-35); SGPT/ALT 22 U/L (12-78); SODIUM 140 mmol/L (136-145); TOTAL PROTEIN 8.2 gm/dL (6.4-8.2)
[2018-04-21 15:10] VITALS: BP 164/88
--- NOTE | 2018-04-21 15:11 | NUR ---
PT STATES HE STILL DOES NOT FEEL LIKE HE COULD STAND FOR HIS X-RAY. HE IS NO LONGER VOMITING AT THIS TIME. TESSY GIORDANO RN.
--- NOTE | 2018-04-21 15:29 | NUR ---
PT UNABLE TO VOID AT THIS TIME. PT IS VOMITING WITH ANY MOVEMENT. IV INFUSING PT'S IV IS POSITIONAL AND HE DOES REFUSE TO HAVE IT MOVED AT THIS TIME. PT IS ENCOURAGED TO KEEP ARM STILL SO THE IV FLUID CAN INFUSE. TESSY GIORDANO RN.
[2018-04-21 15:55] LABS: BILIRUBIN NEGATIVE (NEGATIVE); BLOOD TRACE-LYSED (NEGATIVE); CLARITY CLEAR (CLEAR); COLOR YELLOW (YELLOW); GLUCOSE NEGATIVE (NEGATIVE); KETONE 3+ (NEGATIVE); LEUKO ESTERASE NEGATIVE (NEGATIVE); NITRITE NEGATIVE (NEGATIVE); SPECIFIC GRAVITY 1.025 (1.005-1.030); UROBILINOGEN 0.2 E.U./dl (0.2-1.0)
[2018-04-21 16:00] VITALS: BP 129/60
[2018-04-21 16:05] LABS: URINE AMPHETAMINES < 1000 (1000ng/ml); URINE BARBITURATES < 200 (200ng/ml); URINE BENZODIAZEPINES < 200 (200ng/ml); URINE CANNABINOIDS (THC) > 50 (50ng/ml); URINE COCAINE < 300 (300ng/ml); URINE METHADONE < 300 (300ng/ml); URINE OPIATES < 300 (300ng/ml)
[2018-04-21 16:06] LABS: BACTERIA TRACE; MUCOUS TRACE
[2018-04-21 16:07] LABS: URINE PHENCYCLIDINE < 25 (25ng/ml)
--- NOTE | 2018-04-21 16:23 | NUR ---
MSTime: 1623 A 32 year old MALE admitted to 5E under services of SIDDHARTHA NOVAK DO. Pt. arrived via ambulatory from ER. Chief complaint: INTRACTABLE VOMITING. PATRICK MUNOZ.
[2018-04-21 16:25] VITALS: BP 129/89
--- NOTE | 2018-04-21 16:35 | NUR ---
PT MEDICATED WITH IV PHENERGAN PER PRN ORDER FOR C/O NAUSEA/VOMITING. WILL MONITOR EFFECTIVENESS. IVF MAINTAINED.
--- NOTE | 2018-04-21 17:05 | NUR ---
NOTIFIED REGARDING CRITICAL LACTIC ACID.
--- NOTE | 2018-04-21 19:34 | NUR ---
MADE AWARE OF CRITICAL RESUT. NO NEW ORDERS AT THIS TIME. WILL CONTINUE TO MONITOR PT
[2018-04-21 20:00] VITALS: BP 150/95
--- NOTE | 2018-04-21 20:10 | NUR ---
INTO SEE PT. PT SPITTING UP IN HURL BAG. PT HAS NO CONCERNS AT THIS TIME. WILL CONTINUE TO MONITOR
--- NOTE | 2018-04-21 22:50 | NUR ---
PT C/O OF NAUSEA. PT MEDICATED. PT STATES SOMEWHAT EFFECTIVE. PT STILL SPITTING UP RUST RED LIQUID. WILL CONTINUE TO MONITOR.
[2018-04-22] VITALS: BP 133/76; BP 150/95
--- NOTE | 2018-04-22 05:25 | NUR ---
INTO SEE PT. PT RESTING. WOKEN UP TO GIVE MEDS AND PRN ZOFRAN. PT STATES SOMEWHAT EFFECTIVE. WILL CONTINUE TO MONITOR PT
[2018-04-22 06:28] LABS: BASO % 0.1 % (0.0-1.0); HEMATOCRIT 41.1 % (42.0-52.0); HEMOGLOBIN 13.9 g/dl (14.0-18.0); LYMPH # 1.6 10*3/uL (1.3-4.4); LYMPH % 8.4 % (27.0-41.0); MEAN CELL VOLUME 84.4 fl (80.0-94.0); MEAN CORPUSCULAR HGB 28.5 pg (27.0-31.0); MEAN CORPUSCULAR HGB CONC 33.8 g/dl (33.0-37.0); MEAN PLATELET VOLUME 10.7 fl (9.6-12.3); MONO # 1.1 10*3/uL (0.1-1.0); MONO % 5.6 % (3.0-9.0); NEUT # 16.1 10*3/uL (2.3-7.9); NEUT % 85.4 % (47.0-73.0); PLATELET COUNT AUTOMATED 258 10*3/uL (130-400); RED BLOOD COUNT 4.87 10*6/uL (4.50-5.90); RED CELL DISTRI WIDTH 13.3 % (0-14.5); WHITE BLOOD COUNT 18.9 10*3/uL (4.8-10.8)
[2018-04-22 06:33] LABS: BUN 8 mg/dl (7-24); CHLORIDE 106 mmol/L (98-107); CREATININE 0.86 mg/dL (0.70-1.30); POTASSIUM 3.4 mmol/L (3.5-5.1); SODIUM 140 mmol/L (136-145)
[2018-04-22 06:38] LABS: PHOSPHOROUS 3.3 mg/dL (2.5-4.9)
[2018-04-22 07:45] LABS: VITAMIN D, 25-HYDROXY 21.8 ng/mL (30-100)
[2018-04-22 08:00] VITALS: BP 133/89
--- NOTE | 2018-04-22 09:55 | NUR ---
PT REFUESE LOVENOX AND NOW IS REFUSING POTASSIUM-"I DONT TAKE ANY PILLS OF ANY KIND"
[2018-04-22 12:00] VITALS: BP 134/87
--- NOTE | 2018-04-22 13:20 | NUR ---
PT ALSO REFUSING IV POTASSIUM, DR WOOD UPDATED
[2018-04-22] MEDS ORDERED: ZOFRAN4 MG PO (14:08)
--- NOTE | 2018-04-22 14:19 | NUR ---
Quality Control Assessor in to talk to patient. Patient states lives at HOME with MOTHER. There are 18 steps in the home. Physician: NONE [facility] Home health services: NO Patient's level of ADLs: INDEPENDENT Patient has working utilities: YES DME: NONE Follow-up physician's appointment after d/c: WILL NEED TO FIND PCP AND MAKE APPOINTMENT. Does patient want to access PORTAL?: NO Discharge plan PT STATES HE LIVES AT HOME WITH HIS MOTHER AND IS INDEPENDENT IN CARE. PT STATES HE DOES NOT HAVE A PCP, EXPLAINED THAT A LIST OF MD IS AVAILABLE OR IF HE HAD INTEREST IN THE RESIDENT CLINIC. STATES NO TO BOTH.. PT STATES HE WILL TAKE A CAB HOME ON DISCHARGE AND WILL PAY FOR IT. WILL CONTINUE TO FOLLOW. URIEL KELLY
--- NOTE | 2018-04-22 14:25 | NUR ---
DC TO HOME PT VERBALIZED GOOD UNDERSTANDING OF HOME CARE AND NEW SCRIPT
--- NOTE | 2018-04-22 14:29 | NUR ---
MK AVILA VIA CAB
[2018-07-12] MEDS ORDERED: Amitriptyline H10 MG PO (16:37)
== END 2018-04-22 14:30 | disposition home or self-care (01) | DRG 378 ==
LOC: ED 13:56 → EDHOLD 15:34 → 5E 15:34
PROVIDERS: Physician Assistant; Student in an Organized Health Care Education/Training Program; ADMIT Internal Medicine
DX: K92.0 Hematemesis (principal); E87.2 Acidosis; F12.188 Cannabis abuse with other cannabis-induced disorder; G43.A1 Cyclical vomiting, in migraine, intractable; D72.829 Elevated white blood cell count, unspecified; R73.9 Hyperglycemia, unspecified; F41.9 Anxiety disorder, unspecified; E55.9 Vitamin D deficiency, unspecified; K21.0 Gastro-esophageal reflux disease with esophagitis; Z82.3 Family history of stroke; Z80.9 Family history of malignant neoplasm, unspecified

== ENCOUNTER 2018-07-10 01:02 | Emergency (ER) | payer OTHER ==
[~2018-07-10] VITALS: Ht 180.3 cm; Wt 78.9 kg
[2018-07-10 01:31] LABS: HEMATOCRIT 47.1 % (42.0-52.0); HEMOGLOBIN 16.2 g/dl (14.0-18.0); MEAN CELL VOLUME 82.6 fl (80.0-94.0); MEAN CORPUSCULAR HGB 28.4 pg (27.0-31.0); MEAN CORPUSCULAR HGB CONC 34.4 g/dl (33.0-37.0); MEAN PLATELET VOLUME 10.6 fl (9.6-12.3); PLATELET COUNT AUTOMATED 340 10*3/uL (130-400); RED CELL DISTRI WIDTH 13.2 % (0-14.5); WHITE BLOOD COUNT 19.9 10*3/uL (4.8-10.8)
[2018-07-10 01:46] LABS: ALBUMIN 4.7 gm/dl (3.1-4.5); ALKALINE PHOSPHATASE 79 U/L (45-117); BUN 11 mg/dl (7-24); CHLORIDE 104 mmol/L (98-107); CREATININE 1.13 mg/dL (0.70-1.30); LIPASE 62 U/L (73-393); POTASSIUM 3.5 mmol/L (3.5-5.1); SGOT/AST 13 IU/L (3-35); SGPT/ALT 20 U/L (12-78); SODIUM 139 mmol/L (136-145); TOTAL PROTEIN 8.8 gm/dL (6.4-8.2)
[2018-07-10 01:49] LABS: TOTAL CELLS COUNTED 100 #CELLS
[2018-07-10 01:50] LABS: MICROCYTOSIS SLIGHT; PLATELET SUFFICIENCY NORMAL (NORMAL)
[2018-07-10 03:32] LABS: BILIRUBIN NEGATIVE (NEGATIVE); BLOOD 1+ (NEGATIVE); CLARITY SL CLOUDY (CLEAR); COLOR YELLOW (YELLOW); GLUCOSE NEGATIVE (NEGATIVE); KETONE 1+ (NEGATIVE); LEUKO ESTERASE NEGATIVE (NEGATIVE); NITRITE NEGATIVE (NEGATIVE); PH 6.5 (5.0-9.0); UROBILINOGEN 0.2 E.U./dl (0.2-1.0)
[2018-07-10 03:36] LABS: BACTERIA 1+; EPITHELIAL CELLS 0-2; MUCOUS TRACE; WBC 0-2 wbc/hpf (0-5)
[2018-07-10 03:41] LABS: URINE AMPHETAMINES < 1000 (1000ng/ml); URINE BARBITURATES < 200 (200ng/ml); URINE BENZODIAZEPINES < 200 (200ng/ml); URINE CANNABINOIDS (THC) > 50 (50ng/ml); URINE COCAINE < 300 (300ng/ml); URINE METHADONE < 300 (300ng/ml); URINE OPIATES < 300 (300ng/ml)
[2018-07-10 03:42] LABS: URINE PHENCYCLIDINE < 25 (25ng/ml)
[2018-07-12] MEDS ORDERED: Amitriptyline H10 MG PO (16:37)
== END 2018-07-10 05:06 | disposition home or self-care (01) ==
LOC: ED 01:02
PROVIDERS: Student in an Organized Health Care Education/Training Program
DX: R11.2 Nausea with vomiting, unspecified (principal); R10.9 Unspecified abdominal pain; K21.9 Gastro-esophageal reflux disease without esophagitis; F12.10 Cannabis abuse, uncomplicated; Z90.49 Acquired absence of other specified parts of digestive tract

== ENCOUNTER 2018-09-07 01:39 | Inpatient (IN) | payer OTHER ==
[~2018-09-07] VITALS: Ht 177.8 cm; Wt 74.9 kg
[~2018-09-07 01:39] MED LIST changes: +Amitriptyline H10 MG PO
[2018-09-07 01:41] VITALS: BP 150/101
[2018-09-07 02:10] LABS: BASO % 0.1 % (0.0-1.0); HEMATOCRIT 43.5 % (42.0-52.0); HEMOGLOBIN 14.6 g/dl (14.0-18.0); LYMPH # 1.1 10*3/uL (1.3-4.4); LYMPH % 7.4 % (27.0-41.0); MEAN CORPUSCULAR HGB 28.5 pg (27.0-31.0); MEAN CORPUSCULAR HGB CONC 33.6 g/dl (33.0-37.0); MEAN PLATELET VOLUME 10.6 fl (9.6-12.3); MONO # 0.5 10*3/uL (0.1-1.0); MONO % 3.5 % (3.0-9.0); NEUT # 12.6 10*3/uL (2.3-7.9); NEUT % 88.8 % (47.0-73.0); PLATELET COUNT AUTOMATED 292 10*3/uL (130-400); RED BLOOD COUNT 5.12 10*6/uL (4.50-5.90); RED CELL DISTRI WIDTH 13.6 % (0-14.5); WHITE BLOOD COUNT 14.2 10*3/uL (4.8-10.8)
[2018-09-07 02:26] LABS: ALBUMIN 4.7 gm/dl (3.1-4.5); ALKALINE PHOSPHATASE 78 U/L (45-117); BUN 10 mg/dl (7-24); CHLORIDE 104 mmol/L (98-107); CREATININE 1.04 mg/dL (0.70-1.30); LIPASE 65 U/L (73-393); POTASSIUM 3.6 mmol/L (3.5-5.1); SGOT/AST 10 IU/L (3-35); SGPT/ALT 20 U/L (12-78); SODIUM 141 mmol/L (136-145); TOTAL PROTEIN 8.8 gm/dL (6.4-8.2)
[2018-09-07 03:24] LABS: BILIRUBIN NEGATIVE (NEGATIVE); BLOOD TRACE-INTACT (NEGATIVE); CLARITY SL CLOUDY (CLEAR); COLOR YELLOW (YELLOW); GLUCOSE NEGATIVE (NEGATIVE); KETONE 2+ (NEGATIVE); LEUKO ESTERASE NEGATIVE (NEGATIVE); NITRITE NEGATIVE (NEGATIVE); SPECIFIC GRAVITY >= 1.030 (1.005-1.030); UROBILINOGEN 0.2 E.U./dl (0.2-1.0)
[2018-09-07 03:38] LABS: MUCOUS 1+
[2018-09-07 05:00] VITALS: BP 138/94
[2018-09-07 06:20] VITALS: BP 150/99
--- NOTE | 2018-09-07 06:41 | NUR ---
Time: 619 A 33 year old MALE admitted to 5E under services of BRANDEN BEAVERS DO. Pt. arrived via bed from ER. Chief complaint: INTRACTABLE NAUSEA AND VOMITING. PATIENT ORIENTED TO THE FLOOR 5E. FORMS REVIEWED AND COMPLETED CALL LIGHT SYSTEM REVIEWED AND DEMONSTRATED PHAN RAY
[2018-09-07 12:00] VITALS: BP 139/89
[2018-09-07 16:00] VITALS: BP 117/71
[2018-09-07 20:00] VITALS: BP 115/64
--- NOTE | 2018-09-07 20:20 | NUR ---
24 HOUR CHART CHECK COMPLETE.
[2018-09-08] VITALS: BP 127/70
--- NOTE | 2018-09-08 06:35 | NUR ---
PT IS HAVING AN EPISODE OF VOMITING. ADMINISTERED ZOFRAN AT 0450. SPOKE WITH DR CASTILLO PT IS REQUESTING SOMETHING TO STOP THE VOMITING SO HE CAN KEEP FLUIDS DOWN TO KEEP HIMSELF HYDRATED. NO NEW ORDERS AT THIS TIME.
[2018-09-08 06:37] LABS: BASO # 0.1 10*3/uL (0.0-0.1); BASO % 0.9 % (0.0-1.0); EOS # 0.1 10*3/uL (0.0-0.4); EOS % 0.4 % (1.0-4.0); HEMOGLOBIN 14.3 g/dl (14.0-18.0); MEAN CELL VOLUME 87.1 fl (80.0-94.0); MEAN CORPUSCULAR HGB 28.3 pg (27.0-31.0); MEAN CORPUSCULAR HGB CONC 32.5 g/dl (33.0-37.0); MEAN PLATELET VOLUME 10.7 fl (9.6-12.3); MONO # 0.9 10*3/uL (0.1-1.0); MONO % 6.9 % (3.0-9.0); NEUT # 8.8 10*3/uL (2.3-7.9); NEUT % 68.3 % (47.0-73.0); PLATELET COUNT AUTOMATED 281 10*3/uL (130-400); RED BLOOD COUNT 5.05 10*6/uL (4.50-5.90); RED CELL DISTRI WIDTH 13.9 % (0-14.5); WHITE BLOOD COUNT 12.9 10*3/uL (4.8-10.8)
[2018-09-08 07:02] LABS: BUN 10 mg/dl (7-24); CHLORIDE 103 mmol/L (98-107); CHOLESTEROL 211 mg/dL (<200); SODIUM 139 mmol/L (136-145); TRIGLYCERIDES 115 mg/dl (<150); VLDL CHOLESTEROL 23 mg/dL (6-40)
--- NOTE | 2018-09-08 07:03 | NUR ---
ADMINISTERED DOSE OF PHENERGAN ORDERED BY DR CASTILLO. PT SEEMS TO BE MORE RELAXED AT THIS TIME. NO COMPLAINTS OF VOMITING, JUST STATES HIS "STOMACH STILL FEELS QUEASY".
[2018-09-08 07:10] LABS: FREE T4 1.31 ng/dl (0.76-1.46); HDL CHOLESTEROL 47 mg/dl (40-60); LDL CHOLESTEROL 141 mg/dL (9-159)
[2018-09-08 08:00] VITALS: BP 122/82
[2018-09-08 09:35] LABS: VITAMIN D, 25-HYDROXY 18.9 ng/mL (30-100)
--- NOTE | 2018-09-08 10:03 | NUR ---
I TOOK Alberto-LYTE IN TO PATIENT AND HE STARTED PANICKING AND SAYING THAT HE CAN'T TAKE THAT BECAUSE HE CAN'T HOLD ANYTHING DOWN. THEN HE STOOD UP AND STARTED SHAKING AND PACING AROUND HIS ROOM. HE THEN WENT OVER TO HIS BASIN ON HIS BEDSIDE TABLE AND WAS ATTEMPTING TO SPIT/VOMIT INTO IT BUT NOTHING WAS COMING OUT. HE THEN WAS HOLDING HIS CHEST AND SAYING "OH CRIS PLEASE HELP ME". I ATTEMPTED TO CALM HIM DOWN AND TOLD HIM I WOULD NOTIFY THE DOCTOR. HE'S REQUESTED IVF AND STATED HE WAS GOING TO GO DOWN TO THE VENDING MACHINE TO GET SOME GATORADE. DR IRVIN NOTIFIED OF SITUATION. WILL CONT TO MONITOR.
[2018-09-08 12:00] VITALS: BP 115/80
[2018-09-08 16:00] VITALS: BP 134/84
[2018-09-08 20:00] VITALS: BP 133/78
--- NOTE | 2018-09-08 20:00 | NUR ---
Patient resting quietly with no c/o discomfort. Respirations easy and regular. Vital signs stable. No overt distress. ASIYA ANTUNEZ
[2018-09-09] VITALS: BP 134/91
--- NOTE | 2018-09-09 01:01 | NUR ---
24 HR chart check completed.
--- NOTE | 2018-09-09 04:15 | NUR ---
Patient resting quietly with no c/o discomfort. Respirations easy and regular. Vital signs stable. No overt distress. ASIYA ANTUNEZ
--- NOTE | 2018-09-09 05:55 | NUR ---
[facility]ICATED [facility] IV PHENERGAN ORDERED PER PT REQUEST FOR C/O NAUSEA.
--- NOTE | 2018-09-09 06:42 | NUR ---
PT REFUSED AM LABS.
--- NOTE | 2018-09-09 08:14 | NUR ---
PATIENT IS REFUSING US OF THE ABDOMEN. WILL NOTIFY PHYSICIAN.
[2018-09-09] MEDS ORDERED: ZOFRAN4 MG PO (09:11)
--- NOTE | 2018-09-09 09:25 | NUR ---
.Discharge instructions reviewed with patient/family. Patient receptive and verbalizes understanding. Follow-up care arranged. Written instructions given to patient/family. NANCY HERNANDEZ
--- NOTE | 2018-09-09 12:56 | NUR ---
Welfare Aide in to talk to patient. Patient states lives at HOME with MOTHER. There are FEW steps in the home. Physician: NONE [facility] Home health services: NONE Patient's level of ADLs: INDEPENDENT Patient has working utilities: YES DME: NONE Follow-up physician's appointment after d/c: WILL BE MADE BY HOSPITALIST NURSE DIRECTOR ON DISCHARGE Does patient want to access PORTAL?: NO Discharge plan PT LIVES AT HOME WITH HIS MOTHER AND IS INDEPENDENT IN CARE. DENIES ANY NEEDS ON DISCHARGE. WILL RETURN HOME WITH MOTHER. WILL CONTINUE TO FOLLOW. WILL TAKE A CAB HOME PER PT.. URIEL KELLY
[2018-10-27] MEDS ORDERED: PEPCID20 MG PO (12:54)
[2018-10-27] MEDS ORDERED: ZOFRAN4 MG PO (12:54)
== END 2018-09-09 09:43 | disposition home or self-care (01) | DRG 392 ==
LOC: ED 01:39 → EDHOLD 05:48 → 5E 05:59
PROVIDERS: Emergency Medicine; Family Medicine; ADMIT Emergency Medicine
DX: R10.84 Generalized abdominal pain (principal); R65.10 Systemic inflammatory response syndrome (SIRS) of non-infectious origin without acute organ dysfunction; K21.0 Gastro-esophageal reflux disease with esophagitis; F41.9 Anxiety disorder, unspecified; R73.9 Hyperglycemia, unspecified; R80.9 Proteinuria, unspecified; R82.4 Acetonuria; D72.829 Elevated white blood cell count, unspecified; K29.50 Unspecified chronic gastritis without bleeding; R00.0 Tachycardia, unspecified; R06.82 Tachypnea, not elsewhere classified; I10 Essential (primary) hypertension; R11.10 Vomiting, unspecified; Z90.49 Acquired absence of other specified parts of digestive tract; Z82.3 Family history of stroke; Z80.8 Family history of malignant neoplasm of other organs or systems

== ENCOUNTER 2018-10-28 15:56 | Inpatient (IN) | payer OTHER ==
[~2018-10-28] VITALS: Ht 177.8 cm; Wt 77.6 kg
--- NOTE | ~2018-10-28 | EKG ---
[place], [place] ELECTROCARDIOGRAM REPORT NAME: KRISTINA HATFIELD UNIT #: [id number] ROOM: 406 DOCTOR: KELSEA DRAFT REPORT BIRTHDATE: [birth year] [facility] [place] [facility] Test Date: 2018-10-28 Test Time: 18:58:29 Pat Name: KRISTINA HATFIELD Department: Room: 406 Gender: M Exchange Teller: : 1985 Requested By: ELIDA LAW Order Number: [id number] Reading MD: Ezequiel Chappell MD Measurements Intervals [place] Rate: 92 P: 48 WI: 127 QRS: 0 QRSD: 97 T: 42 QT: 373 QTc: 462 Interpretive Statements Sinus rhythm RSR' in V1 or V2, right VCD or RVH Probable left ventricular hypertrophy Baseline wander in lead(s) I,II,aVR,aVL,aVF,V1,V2,V3,V4,V5,V6 Compared to ECG 04/23/2018 16:24:45 Right ventricular hypertrophy now present RSR' in V1 or V2 now present Electronically Signed On 10-29-2018 4:23:13 PDT by Ezequiel Chappell MD CM:EKGRPT:ELECTROCARDIOGRAM REPORT [id number] 0423 ELIDA LAW EPIPHANY DRAFT REPORT ELIDA LAW
[2018-10-28 15:58] VITALS: BP 153/97
[2018-10-28 16:59] LABS: BASO # 0.1 10*3/uL (0.0-0.1); BASO % 0.6 % (0.0-1.0); EOS % 0.1 % (1.0-4.0); HEMATOCRIT 45.1 % (42.0-52.0); HEMOGLOBIN 15.9 g/dl (14.0-18.0); LYMPH # 1.2 10*3/uL (1.3-4.4); LYMPH % 9.2 % (27.0-41.0); MEAN CELL VOLUME 81.9 fl (80.0-94.0); MEAN CORPUSCULAR HGB 28.9 pg (27.0-31.0); MEAN CORPUSCULAR HGB CONC 35.3 g/dl (33.0-37.0); MEAN PLATELET VOLUME 10.3 fl (9.6-12.3); MONO # 0.6 10*3/uL (0.1-1.0); MONO % 4.3 % (3.0-9.0); NEUT # 11.2 10*3/uL (2.3-7.9); NEUT % 85.3 % (47.0-73.0); PLATELET COUNT AUTOMATED 344 10*3/uL (130-400); RED BLOOD COUNT 5.51 10*6/uL (4.50-5.90); RED CELL DISTRI WIDTH 12.8 % (0-14.5); WHITE BLOOD COUNT 13.1 10*3/uL (4.8-10.8)
[2018-10-28 17:15] LABS: ALBUMIN 4.3 gm/dl (3.1-4.5); ALKALINE PHOSPHATASE 80 U/L (45-117); BUN 8 mg/dl (7-24); CHLORIDE 103 mmol/L (98-107); CREATININE 0.86 mg/dL (0.70-1.30); LIPASE 104 U/L (73-393); SGOT/AST 20 IU/L (3-35); SGPT/ALT 27 U/L (12-78); SODIUM 137 mmol/L (136-145)
[2018-10-28 19:42] VITALS: BP 138/88
[2018-10-28 19:50] VITALS: BP 118/96
--- NOTE | 2018-10-28 19:50 | NUR ---
A 33, admitted to , under the services of ASHLEY Lopez DO with a diagnosis of NAUSEA AND VOMITING. Chief complaint is NAUSEA AND VOMITING. Patient arrived via stretcher from ER. Monitor applied. Initial assessment completed. Vital signs taken and recorded. ASHLEY LOPEZ DO notified of admission to the unit. Orders received. See assessment for past medical history, medications and allergies. Patient and/or family oriented to unit. [facility] visitation policy reviewed. Clothing/patient valuable form completed. ELVER HOBSON
[2018-10-28 20:00] VITALS: BP 118/96
--- NOTE | 2018-10-28 20:23 | NUR ---
PT. STATES HE DOES NOT TAKE HOME MEDS PRESCRIBED AND THROWS PRESCRIPTIONS IN THE GARBAGE ( HE DID UPON DISCHARGE THIS LAST ADMISSION) AND DOES NOT TAKE AY HOME MEDS CURRENTLY.
--- NOTE | 2018-10-28 21:38 | NUR ---
PT. REFUSED ELAVIL AT THIS TIME. SPITTING CLEAR WHITE MUCOUS INTO EMESIS BAG, NO EMESIS NOTED.
[2018-10-29] VITALS: BP 153/95
[2018-10-29 00:30] VITALS: BP 138/70
--- NOTE | 2018-10-29 03:41 | NUR ---
SCHEDULED IV ZOFRAN ADMINISTERED PER ORDER. WILL MONITOR EFFECTIVENESS. PT DENIES ANY NEEDS AT THIS TIME.
[2018-10-29 07:13] LABS: BUN 8 mg/dl (7-24); CHLORIDE 102 mmol/L (98-107); CREATININE 0.78 mg/dL (0.70-1.30); PHOSPHOROUS 3.7 mg/dL (2.5-4.9); POTASSIUM 3.3 mmol/L (3.5-5.1); SODIUM 137 mmol/L (136-145)
[2018-10-29 08:00] VITALS: BP 148/88
--- NOTE | 2018-10-29 08:45 | NUR ---
URINE SENT ORDERED
--- NOTE | 2018-10-29 09:00 | NUR ---
Commissioned Defence Force Officer in to talk to patient. Patient states lives at home with family. There are few steps in the home. Physician: none Pharmacy: [facility] Home health services: none Patient's level of ADLs: INDEPENDENT Patient has working utilities: all working DME: none Follow-up physician's appointment after d/c: will be made by hospitalist nurse director with physician of patient's choice Does patient want to access PORTAL?: no Discharge plan discussed with patient, he lives at home with family, is independent in adls and ambulation, he states he will be returning home when medically stable, discussed with him not having a primary care physican and educated him on local doctors and the resident clinic. educated him that he needs to think about following up with one of his choice and that hospitalist nurse director will make the follow up doctors appointment. patient verbalized understanding but did not choose a doctor to follow up with, case management will follow. NATHAN VINSON
[2018-10-29 09:25] LABS: BILIRUBIN NEGATIVE (NEGATIVE); BLOOD NEGATIVE (NEGATIVE); CLARITY SL CLOUDY (CLEAR); COLOR YELLOW (YELLOW); GLUCOSE NEGATIVE (NEGATIVE); KETONE 1+ (NEGATIVE); LEUKO ESTERASE NEGATIVE (NEGATIVE); NITRITE NEGATIVE (NEGATIVE); UROBILINOGEN 0.2 E.U./dl (0.2-1.0)
[2018-10-29 09:35] LABS: URINE AMPHETAMINES < 1000 (1000ng/ml); URINE BARBITURATES < 200 (200ng/ml); URINE BENZODIAZEPINES < 200 (200ng/ml); URINE CANNABINOIDS (THC) > 50 (50ng/ml); URINE COCAINE < 300 (300ng/ml); URINE METHADONE < 300 (300ng/ml); URINE OPIATES < 300 (300ng/ml)
[2018-10-29 09:39] LABS: MUCOUS 4+
[2018-10-29 09:54] LABS: URINE PHENCYCLIDINE < 25 (25ng/ml)
[2018-10-29 12:00] VITALS: BP 148/97
--- NOTE | 2018-10-29 16:13 | NUR ---
MSDIS Discharge instructions reviewed with patient/family. Patient receptive and verbalizes understanding. Follow-up care arranged. Written instructions given to patient/family. HERIBERTO ASCENCIO
== END 2018-10-29 16:13 | disposition home or self-care (01) | DRG 641 ==
LOC: ED 15:56 → EDHOLD 19:19 → 4E 19:19
PROVIDERS: Family Medicine; Nurse Practitioner; ADMIT Family Medicine
DX: E87.6 Hypokalemia (principal); E86.0 Dehydration; K21.9 Gastro-esophageal reflux disease without esophagitis; F12.188 Cannabis abuse with other cannabis-induced disorder; F12.10 Cannabis abuse, uncomplicated; K44.9 Diaphragmatic hernia without obstruction or gangrene; K29.50 Unspecified chronic gastritis without bleeding; Z82.3 Family history of stroke; Z80.8 Family history of malignant neoplasm of other organs or systems; Z90.49 Acquired absence of other specified parts of digestive tract

== ENCOUNTER 2018-12-10 05:08 | Inpatient (IN) | payer OTHER ==
[~2018-12-10] VITALS: Ht 180.3 cm; Wt 71.6 kg
[2018-12-10 05:50] LABS: BASO % 0.3 % (0.0-1.0); HEMATOCRIT 40.8 % (42.0-52.0); HEMOGLOBIN 13.6 g/dl (14.0-18.0); LYMPH # 1.6 10*3/uL (1.3-4.4); LYMPH % 11.3 % (27.0-41.0); MEAN CELL VOLUME 82.6 fl (80.0-94.0); MEAN CORPUSCULAR HGB 27.5 pg (27.0-31.0); MEAN CORPUSCULAR HGB CONC 33.3 g/dl (33.0-37.0); MEAN PLATELET VOLUME 9.2 fl (9.6-12.3); MONO # 0.4 10*3/uL (0.1-1.0); MONO % 2.8 % (3.0-9.0); NEUT % 84.1 % (47.0-73.0); PLATELET COUNT AUTOMATED 855 10*3/uL (130-400); RED BLOOD COUNT 4.94 10*6/uL (4.50-5.90); RED CELL DISTRI WIDTH 12.9 % (0-14.5); WHITE BLOOD COUNT 14.3 10*3/uL (4.8-10.8)
[2018-12-10 06:00] VITALS: BP 174/94
[2018-12-10 06:03] LABS: ALBUMIN 3.1 gm/dl (3.1-4.5); ALKALINE PHOSPHATASE 181 U/L (45-117); BUN 9 mg/dl (7-24); CHLORIDE 106 mmol/L (98-107); CREATININE 0.94 mg/dL (0.70-1.30); POTASSIUM 3.8 mmol/L (3.5-5.1); SGOT/AST 24 IU/L (3-35); SGPT/ALT 81 U/L (12-78); SODIUM 140 mmol/L (136-145)
--- NOTE | 2018-12-10 06:09 | NUR ---
NOTIFIED OF L.A OF 2.7
[2018-12-10 06:38] VITALS: BP 151/113
[2018-12-10 08:35] VITALS: BP 132/96
--- NOTE | 2018-12-10 08:35 | NUR ---
A 33yr old male, admitted to , under the services of THOMAS Cox DO with a diagnosis of CYCLICAL VOMITING. Chief complaint is vomiting since eating Pizza yesterday. Patient arrived via stretcher from ER. Initial assessment completed. Vital signs taken and recorded. Orders received. See assessment for past medical history, medications and allergies. Patient and/or family oriented to unit. [facility]. Clothing/patient valuable form completed. IV fluids infusing per order. Patient rinsing his mouth and spitting the water out. DASIA ARZATE L
--- NOTE | 2018-12-10 08:56 | NUR ---
CRITICAL VALUE LACTIC ACID IS LOWER THAN FIRST ONE.
--- NOTE | 2018-12-10 11:56 | NUR ---
NEW ORDERS FOR CONTINUOUS IVF AND CLEAR LIQUID DIET REC'D FROM .
[2018-12-10 12:00] VITALS: BP 128/82
--- NOTE | 2018-12-10 13:04 | NUR ---
ZOFRAN GIVEN FOR NAUSEA. CALL LIGHT IN REACH. IVF GOING WITH EASE. WILL MONITOR.
[2018-12-10 16:00] VITALS: BP 131/77
--- NOTE | 2018-12-10 17:31 | NUR ---
C/O ACID REFLUX AFTER LAYING FLAT FOR [facility]UB IMAGING. PT STATES HE VOMITED FOLLOWING IT. SCHEDULED ZOFRAN GIVEN AND PRN MORPHINE GIVEN FOR C/O GERD/BACK PAIN. PT MOANING IN PAIN. PAIN RATED 9/10. INFORMED OF GERD COMPLAINTS. SAID HE WOULD ORDER SOMETHING.
[2018-12-10 20:00] VITALS: BP 126/89
[2018-12-11] VITALS: BP 132/90
[2018-12-11 04:34] LABS: BILIRUBIN NEGATIVE (NEGATIVE); BLOOD NEGATIVE (NEGATIVE); CLARITY CLEAR (CLEAR); COLOR YELLOW (YELLOW); GLUCOSE NEGATIVE (NEGATIVE); KETONE NEGATIVE (NEGATIVE); LEUKO ESTERASE NEGATIVE (NEGATIVE); NITRITE NEGATIVE (NEGATIVE); SPECIFIC GRAVITY 1.015 (1.005-1.030); UROBILINOGEN 0.2 E.U./dl (0.2-1.0)
[2018-12-11 04:43] LABS: WBC 0-2 wbc/hpf (0-5)
[2018-12-11 08:00] VITALS: BP 122/82
--- NOTE | 2018-12-11 14:09 | NUR ---
Welding Machine Operator Gas Metal Arc in to talk to patient. Patient states lives at HOME with MOTHER. There are FEW steps in the home. Physician: NONE [facility]: [facility] Home health services: NONE Patient's level of ADLs: INDEPENDENT Patient has working utilities: YES DME: NONE Follow-up physician's appointment after d/c: PT STATES HE DOES NOT HAVE A PCP Does patient want to access PORTAL?: NO Discharge plan PT LIVES AT HOME WITH HIS MOTHER AND IS INDEPENDENT IN HIS CARE.. DENIES HE WILL HAVE NEEDS ON DISCHARGE. STATES HE WILL RETURN HOME. WILL CONTINUE TO FOLLOW. URIEL KELLY
--- NOTE | 2018-12-11 14:45 | NUR ---
MSDIS Discharge instructions reviewed with patient/family. Patient receptive and verbalizes understanding. Follow-up care arranged. Written instructions given to patient/family. HERIBERTO ASCENCIO
== END 2018-12-11 14:45 | disposition home or self-care (01) | DRG 243 ==
LOC: ED 05:08 → EDHOLD 06:20 → 4E 06:20
PROVIDERS: Emergency Medicine; ADMIT Internal Medicine
DX: K21.0 Gastro-esophageal reflux disease with esophagitis (principal); G43.A0 Cyclical vomiting, in migraine, not intractable; E86.0 Dehydration; R65.10 Systemic inflammatory response syndrome (SIRS) of non-infectious origin without acute organ dysfunction; K29.50 Unspecified chronic gastritis without bleeding; K44.9 Diaphragmatic hernia without obstruction or gangrene; F12.10 Cannabis abuse, uncomplicated; D64.9 Anemia, unspecified; D47.3 Essential (hemorrhagic) thrombocythemia; R73.9 Hyperglycemia, unspecified; E87.2 Acidosis; Z90.49 Acquired absence of other specified parts of digestive tract; Z82.3 Family history of stroke; Z80.8 Family history of malignant neoplasm of other organs or systems; Z81.2 Family history of tobacco abuse and dependence

== ENCOUNTER 2019-02-10 17:22 | Inpatient (IN) | payer OTHER ==
[~2019-02-10] VITALS: Ht 180.3 cm; Wt 81.9 kg
[2019-02-10 18:32] LABS: BASO # 0.2 10*3/uL (0.0-0.1); BASO % 0.8 % (0.0-1.0); EOS # 0.1 10*3/uL (0.0-0.4); EOS % 0.3 % (1.0-4.0); HEMATOCRIT 45.8 % (42.0-52.0); HEMOGLOBIN 15.5 g/dl (14.0-18.0); LYMPH # 2.4 10*3/uL (1.3-4.4); LYMPH % 12.9 % (27.0-41.0); MEAN CELL VOLUME 83.9 fl (80.0-94.0); MEAN CORPUSCULAR HGB 28.4 pg (27.0-31.0); MEAN CORPUSCULAR HGB CONC 33.8 g/dl (33.0-37.0); MONO # 0.9 10*3/uL (0.1-1.0); MONO % 4.6 % (3.0-9.0); NEUT # 15.3 10*3/uL (2.3-7.9); NEUT % 80.8 % (47.0-73.0); PLATELET COUNT AUTOMATED 344 10*3/uL (130-400); RED BLOOD COUNT 5.46 10*6/uL (4.50-5.90)
[2019-02-10 18:46] LABS: ALBUMIN 4.3 gm/dl (3.1-4.5); ALKALINE PHOSPHATASE 78 U/L (45-117); BUN 10 mg/dl (7-24); CHLORIDE 107 mmol/L (98-107); CREATININE 0.86 mg/dL (0.70-1.30); LIPASE 103 U/L (73-393); POTASSIUM 3.6 mmol/L (3.5-5.1); SGOT/AST 18 IU/L (3-35); SGPT/ALT 28 U/L (12-78); SODIUM 137 mmol/L (136-145); TOTAL PROTEIN 8.2 gm/dL (6.4-8.2)
[2019-02-10 19:11] VITALS: BP 138/74
[2019-02-10 20:52] VITALS: BP 142/78
[2019-02-10 22:19] LABS: BILIRUBIN NEGATIVE (NEGATIVE); BLOOD 1+ (NEGATIVE); CLARITY CLEAR (CLEAR); COLOR YELLOW (YELLOW); GLUCOSE NEGATIVE (NEGATIVE); KETONE 2+ (NEGATIVE); LEUKO ESTERASE NEGATIVE (NEGATIVE); NITRITE NEGATIVE (NEGATIVE); SPECIFIC GRAVITY >= 1.030 (1.005-1.030); UROBILINOGEN 0.2 E.U./dl (0.2-1.0)
[2019-02-10 22:26] LABS: URINE AMPHETAMINES < 1000 (1000ng/ml); URINE BARBITURATES < 200 (200ng/ml); URINE BENZODIAZEPINES < 200 (200ng/ml); URINE CANNABINOIDS (THC) > 50 (50ng/ml); URINE COCAINE < 300 (300ng/ml); URINE METHADONE < 300 (300ng/ml); URINE OPIATES < 300 (300ng/ml)
[2019-02-10 22:29] LABS: MUCOUS 1+; WBC 0-2 wbc/hpf (0-5)
[2019-02-10 22:30] LABS: URINE PHENCYCLIDINE < 25 (25ng/ml)
[2019-02-10 23:20] VITALS: BP 142/88
[2019-02-11] VITALS: BP 142/88
[2019-02-11 03:12] LABS: HEMATOCRIT 43.3 % (42.0-52.0); HEMOGLOBIN 14.6 g/dl (14.0-18.0); MEAN CELL VOLUME 84.7 fl (80.0-94.0); MEAN CORPUSCULAR HGB 28.6 pg (27.0-31.0); MEAN CORPUSCULAR HGB CONC 33.7 g/dl (33.0-37.0); PLATELET COUNT AUTOMATED 300 10*3/uL (130-400); RED BLOOD COUNT 5.11 10*6/uL (4.50-5.90); RED CELL DISTRI WIDTH 13.9 % (0-14.5); WHITE BLOOD COUNT 18.6 10*3/uL (4.8-10.8)
[2019-02-11 03:27] LABS: BUN 8 mg/dl (7-24); CHLORIDE 105 mmol/L (98-107); CREATININE 0.93 mg/dL (0.70-1.30); POTASSIUM 3.6 mmol/L (3.5-5.1); SODIUM 138 mmol/L (136-145)
[2019-02-11 03:37] LABS: PLATELET SUFFICIENCY NORMAL (NORMAL); TOTAL CELLS COUNTED 100 #CELLS
[2019-02-11 08:00] VITALS: BP 152/99
[2019-02-11 12:00] VITALS: BP 150/84
[2019-02-11 16:00] VITALS: BP 155/100
[2019-02-11 20:00] VITALS: BP 155/95
[2019-02-12] VITALS: BP 163/107
[2019-02-12 08:00] VITALS: BP 152/90
[2019-02-12 10:44] LABS: HEMATOCRIT 43.9 % (42.0-52.0); HEMOGLOBIN 14.7 g/dl (14.0-18.0); MEAN CELL VOLUME 85.1 fl (80.0-94.0); MEAN CORPUSCULAR HGB 28.5 pg (27.0-31.0); MEAN CORPUSCULAR HGB CONC 33.5 g/dl (33.0-37.0); MEAN PLATELET VOLUME 10.2 fl (9.6-12.3); PLATELET COUNT AUTOMATED 298 10*3/uL (130-400); RED BLOOD COUNT 5.16 10*6/uL (4.50-5.90); RED CELL DISTRI WIDTH 14.2 % (0-14.5); WHITE BLOOD COUNT 27.4 10*3/uL (4.8-10.8)
[2019-02-12 11:05] LABS: ATYPICAL LYMPHS 1 % (0-0); PLATELET SUFFICIENCY NORMAL (NORMAL); TOTAL CELLS COUNTED 100 #CELLS
[2019-02-12 11:17] LABS: BUN 12 mg/dl (7-24); CHLORIDE 101 mmol/L (98-107); CREATININE 0.91 mg/dL (0.70-1.30); POTASSIUM 3.4 mmol/L (3.5-5.1); SODIUM 134 mmol/L (136-145)
[2019-02-12 12:00] VITALS: BP 152/92
[2019-02-12 16:00] VITALS: BP 141/90
[2019-02-12 20:00] VITALS: BP 137/80
[2019-02-13] VITALS: BP 127/83
[2019-02-13 06:39] LABS: HEMATOCRIT 40.3 % (42.0-52.0); HEMOGLOBIN 13.4 g/dl (14.0-18.0); MEAN CELL VOLUME 86.1 fl (80.0-94.0); MEAN CORPUSCULAR HGB 28.6 pg (27.0-31.0); MEAN CORPUSCULAR HGB CONC 33.3 g/dl (33.0-37.0); MEAN PLATELET VOLUME 10.5 fl (9.6-12.3); PLATELET COUNT AUTOMATED 259 10*3/uL (130-400); RED BLOOD COUNT 4.68 10*6/uL (4.50-5.90); RED CELL DISTRI WIDTH 14.2 % (0-14.5); WHITE BLOOD COUNT 20.6 10*3/uL (4.8-10.8)
[2019-02-13 06:53] LABS: BUN 10 mg/dl (7-24); CHLORIDE 105 mmol/L (98-107); CREATININE 0.78 mg/dL (0.70-1.30); POTASSIUM 3.4 mmol/L (3.5-5.1); SODIUM 139 mmol/L (136-145)
[2019-02-13 07:11] LABS: PLATELET SUFFICIENCY NORMAL (NORMAL); TOTAL CELLS COUNTED 100 #CELLS
[2019-02-13 12:00] VITALS: BP 138/90
[2019-02-13] MEDS ORDERED: PHENERGAN25 M3 PO (15:39)
[2019-02-13] MEDS ORDERED: AUGMENTIN 875-875 MG PO (15:39)
[2019-02-13] MEDS ORDERED: ZOFRAN4 MG PO (15:39)
== END 2019-02-13 16:45 | disposition home or self-care (01) | DRG 720 ==
LOC: ED 17:22 → EDHOLD 22:00 → 5E 22:00
PROVIDERS: Family Medicine; Internal Medicine; Physician Assistant; ADMIT Internal Medicine
DX: A41.9 Sepsis, unspecified organism (principal); E86.0 Dehydration; J18.9 Pneumonia, unspecified organism; G43.A0 Cyclical vomiting, in migraine, not intractable; D72.829 Elevated white blood cell count, unspecified; R00.0 Tachycardia, unspecified; K29.50 Unspecified chronic gastritis without bleeding; K44.9 Diaphragmatic hernia without obstruction or gangrene; E55.9 Vitamin D deficiency, unspecified; K21.0 Gastro-esophageal reflux disease with esophagitis; F12.188 Cannabis abuse with other cannabis-induced disorder; Z90.49 Acquired absence of other specified parts of digestive tract; Z71.51 Drug abuse counseling and surveillance of drug abuser; Z79.899 Other long term (current) drug therapy

== ENCOUNTER 2019-06-20 20:32 | Emergency (ER) | payer OTHER ==
[~2019-06-20] VITALS: Ht 177.8 cm; Wt 78.9 kg
[~2019-06-20 20:32] MED LIST changes: +AUGMENTIN 875-875 MG PO; +PHENERGAN25 M3 PO
[2019-06-20 21:33] LABS: HEMATOCRIT 46.6 % (42.0-52.0); MEAN CELL VOLUME 83.4 fl (80.0-94.0); MEAN CORPUSCULAR HGB 28.6 pg (27.0-31.0); MEAN CORPUSCULAR HGB CONC 34.3 g/dl (33.0-37.0); MEAN PLATELET VOLUME 11.2 fl (9.6-12.3); PLATELET COUNT AUTOMATED 310 10*3/uL (130-400); RED BLOOD COUNT 5.59 10*6/uL (4.50-5.90); RED CELL DISTRI WIDTH 14.1 % (0-14.5); WHITE BLOOD COUNT 23.4 10*3/uL (4.8-10.8)
[2019-06-20 21:49] LABS: ALBUMIN 4.7 gm/dl (3.1-4.5); ALKALINE PHOSPHATASE 91 U/L (45-117); BUN 23 mg/dl (7-24); CHLORIDE 100 mmol/L (98-107); CREATININE 1.06 mg/dL (0.70-1.30); LIPASE 57 U/L (73-393); POTASSIUM 3.6 mmol/L (3.5-5.1); SGOT/AST 43 IU/L (3-35); SGPT/ALT 43 U/L (12-78); SODIUM 136 mmol/L (136-145); TOTAL PROTEIN 8.8 gm/dL (6.4-8.2)
[2019-06-20 21:55] LABS: PLATELET SUFFICIENCY NORMAL (NORMAL); TOTAL CELLS COUNTED 100 #CELLS
[2019-06-20 23:54] LABS: BILIRUBIN NEGATIVE (NEGATIVE); BLOOD TRACE-INTACT (NEGATIVE); CLARITY CLEAR (CLEAR); COLOR YELLOW (YELLOW); GLUCOSE NEGATIVE (NEGATIVE); KETONE 3+ (NEGATIVE); LEUKO ESTERASE NEGATIVE (NEGATIVE); NITRITE NEGATIVE (NEGATIVE); PH 6.5 (5.0-9.0); SPECIFIC GRAVITY 1.025 (1.005-1.030); UROBILINOGEN 0.2 E.U./dl (0.2-1.0)
[2019-06-21 00:11] LABS: MUCOUS TRACE
[2019-06-21] MEDS ORDERED: ZOFRAN4 MG PO ×2 (01:58→02:54)
[2019-06-21] MEDS ORDERED: PROMETHAZINE HC25 M1 PO (01:58)
[2019-06-21 02:46] LABS: HEMOGLOBIN 13.4 g/dl (14.0-18.0); MEAN CELL VOLUME 85.8 fl (80.0-94.0); MEAN CORPUSCULAR HGB 28.8 pg (27.0-31.0); MEAN CORPUSCULAR HGB CONC 33.5 g/dl (33.0-37.0); MEAN PLATELET VOLUME 10.8 fl (9.6-12.3); PLATELET COUNT AUTOMATED 226 10*3/uL (130-400); RED BLOOD COUNT 4.66 10*6/uL (4.50-5.90); RED CELL DISTRI WIDTH 14.1 % (0-14.5); WHITE BLOOD COUNT 16.9 10*3/uL (4.8-10.8)
[2019-06-21] MEDS ORDERED: PROTONIX40 MG PO (02:54)
[2019-06-21 03:11] LABS: PLATELET SUFFICIENCY NORMAL (NORMAL); TOTAL CELLS COUNTED 100 #CELLS
== END 2019-06-21 06:30 | disposition home or self-care (01) ==
LOC: ED 20:32
PROVIDERS: Emergency Medicine Emergency Medical Services
DX: R11.15 Cyclical vomiting syndrome unrelated to migraine (principal); F12.10 Cannabis abuse, uncomplicated; R11.2 Nausea with vomiting, unspecified; E86.0 Dehydration; I10 Essential (primary) hypertension; Z79.2 Long term (current) use of antibiotics; Z90.49 Acquired absence of other specified parts of digestive tract

== ENCOUNTER 2019-06-21 12:35 | Emergency (ER) | payer OTHER ==
[~2019-06-21] VITALS: Ht 177.8 cm; Wt 78.9 kg
[~2019-06-21 12:35] MED LIST changes: +PROMETHAZINE HC25 M1 PO
[2019-06-21 13:19] LABS: BASO % 0.2 % (0.0-1.0); EOS % 0.1 % (1.0-4.0); HEMATOCRIT 45.1 % (42.0-52.0); HEMOGLOBIN 15.2 g/dl (14.0-18.0); LYMPH # 1.6 10*3/uL (1.3-4.4); LYMPH % 9.7 % (27.0-41.0); MEAN CELL VOLUME 84.3 fl (80.0-94.0); MEAN CORPUSCULAR HGB 28.4 pg (27.0-31.0); MEAN CORPUSCULAR HGB CONC 33.7 g/dl (33.0-37.0); MONO # 1.3 10*3/uL (0.1-1.0); MONO % 7.8 % (3.0-9.0); NEUT # 13.5 10*3/uL (2.3-7.9); NEUT % 81.8 % (47.0-73.0); RED BLOOD COUNT 5.35 10*6/uL (4.50-5.90); WHITE BLOOD COUNT 16.5 10*3/uL (4.8-10.8)
[2019-06-21 13:22] LABS: PLATELET COUNT AUTOMATED 312 10*3/uL (130-400)
[2019-06-21 13:28] LABS: ALBUMIN 4.4 gm/dl (3.1-4.5); ALKALINE PHOSPHATASE 90 U/L (45-117); BUN 14 mg/dl (7-24); CHLORIDE 105 mmol/L (98-107); CREATININE 0.99 mg/dL (0.70-1.30); POTASSIUM 3.5 mmol/L (3.5-5.1); SGOT/AST 49 IU/L (3-35); SGPT/ALT 59 U/L (12-78); SODIUM 139 mmol/L (136-145); TOTAL PROTEIN 7.8 gm/dL (6.4-8.2)
== END 2019-06-21 16:56 | disposition home or self-care (01) ==
LOC: ED 12:35
PROVIDERS: Nurse Practitioner
DX: R11.15 Cyclical vomiting syndrome unrelated to migraine (principal); F12.10 Cannabis abuse, uncomplicated; I10 Essential (primary) hypertension; Z90.49 Acquired absence of other specified parts of digestive tract; Z79.899 Other long term (current) drug therapy

== ENCOUNTER 2019-07-28 12:21 | Emergency (ER) | payer OTHER ==
[~2019-07-28] VITALS: Ht 152.4 cm; Wt 77.1 kg
[2019-07-28 13:40] LABS: BASO # 0.1 10*3/uL (0.0-0.1); BASO % 0.7 % (0.0-1.0); EOS # 0.1 10*3/uL (0.0-0.4); EOS % 0.5 % (1.0-4.0); LYMPH # 2.1 10*3/uL (1.3-4.4); LYMPH % 10.9 % (27.0-41.0); MEAN CELL VOLUME 87.3 fl (80.0-94.0); MEAN CORPUSCULAR HGB 28.8 pg (27.0-31.0); MEAN PLATELET VOLUME 10.5 fl (9.6-12.3); MONO # 0.8 10*3/uL (0.1-1.0); MONO % 4.1 % (3.0-9.0); NEUT # 15.7 10*3/uL (2.3-7.9); NEUT % 83.1 % (47.0-73.0); PLATELET COUNT AUTOMATED 318 10*3/uL (130-400); RED BLOOD COUNT 5.27 10*6/uL (4.50-5.90); RED CELL DISTRI WIDTH 13.9 % (0-14.5); WHITE BLOOD COUNT 18.9 10*3/uL (4.8-10.8)
[2019-07-28 13:50] LABS: ACT PARTIAL THROMBO TIME 20.4 SECONDS (20.0-32.1); INTERNATIONAL NORM RATIO 0.9 (2.0-3.5)
[2019-07-28 13:58] LABS: ALBUMIN 4.2 gm/dl (3.1-4.5); ALKALINE PHOSPHATASE 99 U/L (45-117); BUN 8 mg/dl (7-24); CHLORIDE 113 mmol/L (98-107); CREATININE 0.91 mg/dL (0.70-1.30); LIPASE 101 U/L (73-393); POTASSIUM 3.9 mmol/L (3.5-5.1); SGOT/AST 22 IU/L (3-35); SGPT/ALT 23 U/L (12-78); SODIUM 138 mmol/L (136-145); TOTAL PROTEIN 7.9 gm/dL (6.4-8.2)
[2019-07-28] MEDS ORDERED: PHENERGAN25 M3 PO (16:39)
[2019-07-28 16:40] LABS: BILIRUBIN NEGATIVE (NEGATIVE); BLOOD 3+ (NEGATIVE); CLARITY SL CLOUDY (CLEAR); COLOR YELLOW (YELLOW); GLUCOSE NEGATIVE (NEGATIVE); KETONE 2+ (NEGATIVE); LEUKO ESTERASE NEGATIVE (NEGATIVE); NITRITE NEGATIVE (NEGATIVE); SPECIFIC GRAVITY 1.015 (1.005-1.030); UROBILINOGEN 0.2 E.U./dl (0.2-1.0)
[2019-07-28 17:06] LABS: BACTERIA TRACE
[2019-07-28 17:07] LABS: MUCOUS 2+
[2019-07-29] MEDS ORDERED: PHENERGAN25 M3 PO (13:40)
== END 2019-07-28 17:28 | disposition home or self-care (01) ==
LOC: ED 12:21
PROVIDERS: Nurse Practitioner Family
DX: R11.15 Cyclical vomiting syndrome unrelated to migraine (principal); R11.2 Nausea with vomiting, unspecified; I10 Essential (primary) hypertension; F12.10 Cannabis abuse, uncomplicated; Z79.899 Other long term (current) drug therapy; Z88.1 Allergy status to other antibiotic agents; Z90.49 Acquired absence of other specified parts of digestive tract

== ENCOUNTER 2019-07-29 06:51 | Emergency (ER) | payer OTHER ==
[~2019-07-29] VITALS: Ht 429.2 cm; Wt 79.4 kg
[2019-07-29 08:57] LABS: BASO % 0.1 % (0.0-1.0); HEMATOCRIT 41.7 % (42.0-52.0); LYMPH # 1.2 10*3/uL (1.3-4.4); LYMPH % 5.4 % (27.0-41.0); MEAN CELL VOLUME 85.8 fl (80.0-94.0); MEAN CORPUSCULAR HGB 28.8 pg (27.0-31.0); MEAN CORPUSCULAR HGB CONC 33.6 g/dl (33.0-37.0); MEAN PLATELET VOLUME 10.3 fl (9.6-12.3); MONO # 1.4 10*3/uL (0.1-1.0); MONO % 6.7 % (3.0-9.0); NEUT # 18.6 10*3/uL (2.3-7.9); NEUT % 87.4 % (47.0-73.0); PLATELET COUNT AUTOMATED 280 10*3/uL (130-400); RED BLOOD COUNT 4.86 10*6/uL (4.50-5.90); RED CELL DISTRI WIDTH 13.8 % (0-14.5); WHITE BLOOD COUNT 21.3 10*3/uL (4.8-10.8)
[2019-07-29 09:09] LABS: ALBUMIN 3.9 gm/dl (3.1-4.5); ALKALINE PHOSPHATASE 92 U/L (45-117); BUN 9 mg/dl (7-24); CHLORIDE 105 mmol/L (98-107); CREATININE 0.78 mg/dL (0.70-1.30); LIPASE 45 U/L (73-393); POTASSIUM 3.3 mmol/L (3.5-5.1); SGOT/AST 14 IU/L (3-35); SGPT/ALT 22 U/L (12-78); SODIUM 139 mmol/L (136-145); TOTAL PROTEIN 7.4 gm/dL (6.4-8.2)
[2019-07-29 10:45] LABS: URINE AMPHETAMINES < 1000 (1000ng/ml); URINE BARBITURATES < 200 (200ng/ml); URINE BENZODIAZEPINES < 200 (200ng/ml); URINE CANNABINOIDS (THC) > 50 (50ng/ml); URINE COCAINE < 300 (300ng/ml); URINE METHADONE < 300 (300ng/ml); URINE OPIATES < 300 (300ng/ml)
[2019-07-29 10:52] LABS: URINE PHENCYCLIDINE < 25 (25ng/ml)
[2019-07-29 11:14] LABS: BILIRUBIN NEGATIVE (NEGATIVE); BLOOD TRACE-INTACT (NEGATIVE); CLARITY CLEAR (CLEAR); COLOR YELLOW (YELLOW); GLUCOSE NEGATIVE (NEGATIVE); KETONE 2+ (NEGATIVE)
[2019-07-29 11:15] LABS: LEUKO ESTERASE NEGATIVE (NEGATIVE); NITRITE NEGATIVE (NEGATIVE); UROBILINOGEN 0.2 E.U./dl (0.2-1.0)
[2019-07-29 11:19] LABS: BACTERIA TRACE; EPITHELIAL CELLS 0-2
[2019-07-29] MEDS ORDERED: PHENERGAN25 M3 PO (13:40)
[2019-07-30 15:06] LABS: H.PYLORI IGM <9.0 units (0.0-8.9); H.PYLORI IgA <9.0 units (0.0-8.9)
== END 2019-07-29 14:00 | disposition home or self-care (01) ==
LOC: ED 06:51
PROVIDERS: Emergency Medicine
DX: R11.15 Cyclical vomiting syndrome unrelated to migraine (principal); I10 Essential (primary) hypertension; Z79.899 Other long term (current) drug therapy; Z79.2 Long term (current) use of antibiotics; Z90.49 Acquired absence of other specified parts of digestive tract

== ENCOUNTER 2019-08-03 01:12 | Emergency (ER) | payer OTHER ==
[2019-08-03 02:11] LABS: BASO # 0.1 10*3/uL (0.0-0.1); BASO % 0.9 % (0.0-1.0); EOS % 0.2 % (1.0-4.0); HEMATOCRIT 40.6 % (42.0-52.0); LYMPH # 1.6 10*3/uL (1.3-4.4); LYMPH % 12.2 % (27.0-41.0); MEAN CELL VOLUME 83.5 fl (80.0-94.0); MEAN CORPUSCULAR HGB 29.2 pg (27.0-31.0); MEAN PLATELET VOLUME 10.6 fl (9.6-12.3); MONO # 0.4 10*3/uL (0.1-1.0); MONO % 3.3 % (3.0-9.0); NEUT # 10.7 10*3/uL (2.3-7.9); NEUT % 82.9 % (47.0-73.0); PLATELET COUNT AUTOMATED 317 10*3/uL (130-400); RED BLOOD COUNT 4.86 10*6/uL (4.50-5.90); RED CELL DISTRI WIDTH 13.2 % (0-14.5); WHITE BLOOD COUNT 12.9 10*3/uL (4.8-10.8)
[2019-08-03 02:34] LABS: ALBUMIN 4.2 gm/dl (3.1-4.5); ALKALINE PHOSPHATASE 90 U/L (45-117); BUN 16 mg/dl (7-24); LIPASE 112 U/L (73-393); SGOT/AST 27 IU/L (3-35); SGPT/ALT 46 U/L (12-78); TOTAL PROTEIN 7.7 gm/dL (6.4-8.2)
[2019-08-03 02:39] LABS: CHLORIDE 107 mmol/L (98-107); POTASSIUM 2.9 mmol/L (3.5-5.1); SODIUM 141 mmol/L (136-145)
[2019-08-03 07:48] LABS: BUN 12 mg/dl (7-24); CHLORIDE 109 mmol/L (98-107); CREATININE 0.81 mg/dL (0.70-1.30); POTASSIUM 3.4 mmol/L (3.5-5.1); SODIUM 142 mmol/L (136-145)
== END 2019-08-03 09:39 | disposition home or self-care (01) ==
LOC: ED 01:12
PROVIDERS: Emergency Medicine Emergency Medical Services
DX: R11.2 Nausea with vomiting, unspecified (principal); R53.1 Weakness; I10 Essential (primary) hypertension; K21.9 Gastro-esophageal reflux disease without esophagitis; F12.90 Cannabis use, unspecified, uncomplicated; Z79.2 Long term (current) use of antibiotics; Z79.899 Other long term (current) drug therapy; Z90.49 Acquired absence of other specified parts of digestive tract

== ENCOUNTER 2019-10-11 20:19 | Emergency (ER) | payer OTHER ==
[~2019-10-11] VITALS: Ht 177.8 cm; Wt 74.4 kg
[~2019-10-11 20:19] MED LIST changes: +[UNRECOGNIZED DRUG - OTHER] R
[2019-10-11] MEDS ORDERED: ANUSOL HC30 GM PO (20:50)
== END 2019-10-12 00:03 | disposition home or self-care (01) ==
LOC: ED 20:19
DX: K64.8 Other hemorrhoids (principal); R11.2 Nausea with vomiting, unspecified; I10 Essential (primary) hypertension; Z90.49 Acquired absence of other specified parts of digestive tract

== ENCOUNTER 2019-11-05 00:05 | Observation (INO) | payer OTHER ==
[2019-11-05] VITALS (8 sets, daily range): BP systolic 127–158; BP diastolic 72–93
[~2019-11-05] VITALS: Ht 177.8 cm; Wt 75.5 kg
[~2019-11-05 00:05] MED LIST changes: +ANUSOL HC30 GM PO
[2019-11-05 01:10] LABS: BASO % 0.2 % (0.0-1.0); LYMPH # 1.1 10*3/uL (1.3-4.4); LYMPH % 6.8 % (27.0-41.0); MEAN CORPUSCULAR HGB CONC 33.9 g/dl (33.0-37.0); MEAN PLATELET VOLUME 10.2 fl (9.6-12.3); MONO # 0.5 10*3/uL (0.1-1.0); MONO % 2.7 % (3.0-9.0); NEUT # 15.1 10*3/uL (2.3-7.9); NEUT % 89.9 % (47.0-73.0); PLATELET COUNT AUTOMATED 324 10*3/uL (130-400); RED BLOOD COUNT 4.97 10*6/uL (4.50-5.90); WHITE BLOOD COUNT 16.8 10*3/uL (4.8-10.8)
[2019-11-05 01:12] LABS: MEAN CELL VOLUME 82.5 fl (80.0-94.0)
[2019-11-05 01:25] LABS: ALBUMIN 4.4 gm/dl (3.1-4.5); ALKALINE PHOSPHATASE 80 U/L (45-117); BUN 7 mg/dl (7-24); CHLORIDE 104 mmol/L (98-107); CREATININE 0.94 mg/dL (0.70-1.30); POTASSIUM 3.4 mmol/L (3.5-5.1); SGOT/AST 14 IU/L (3-35); SGPT/ALT 26 U/L (12-78); SODIUM 138 mmol/L (136-145); TOTAL PROTEIN 8.3 gm/dL (6.4-8.2)
[2019-11-06] VITALS: BP 143/95
[2019-11-06 06:19] LABS: BUN 10 mg/dl (7-24); CHLORIDE 103 mmol/L (98-107); CHOLESTEROL 184 mg/dL (<200); CREATININE 0.83 mg/dL (0.70-1.30); POTASSIUM 3.5 mmol/L (3.5-5.1); SODIUM 138 mmol/L (136-145); TRIGLYCERIDES 126 mg/dl (<150); VLDL CHOLESTEROL 25 mg/dL (6-40)
[2019-11-06 06:28] LABS: FREE T4 1.21 ng/dl (0.76-1.46); HDL CHOLESTEROL 48 mg/dl (40-60); LDL CHOLESTEROL 111 mg/dL (9-159)
[2019-11-06 07:13] LABS: BASO # 0.1 10*3/uL (0.0-0.1); BASO % 0.7 % (0.0-1.0); EOS # 0.1 10*3/uL (0.0-0.4); EOS % 0.7 % (1.0-4.0); HEMATOCRIT 42.5 % (42.0-52.0); LYMPH # 3.1 10*3/uL (1.3-4.4); LYMPH % 31.1 % (27.0-41.0); MEAN CORPUSCULAR HGB 27.6 pg (27.0-31.0); MEAN CORPUSCULAR HGB CONC 32.5 g/dl (33.0-37.0); MEAN PLATELET VOLUME 11.5 fl (9.6-12.3); NEUT # 5.7 10*3/uL (2.3-7.9); NEUT % 57.2 % (47.0-73.0); PLATELET COUNT AUTOMATED 262 10*3/uL (130-400); RED CELL DISTRI WIDTH 13.5 % (0-14.5); WHITE BLOOD COUNT 9.9 10*3/uL (4.8-10.8)
[2019-11-06 08:00] VITALS: BP 138/90
[2019-11-06 09:33] LABS: VITAMIN D, 25-HYDROXY 23.8 ng/mL (30-100)
[2019-11-06 12:00] VITALS: BP 132/90
[2019-11-06 15:31] VITALS: BP 132/88
== END 2019-11-06 15:53 | disposition home or self-care (01) ==
LOC: ED 00:05 → EDHOLD 04:44 → 5E 05:01
PROVIDERS: Emergency Medicine; Internal Medicine; ADMIT Internal Medicine; ATTEND Internal Medicine
DX: R11.2 Nausea with vomiting, unspecified (principal); F12.90 Cannabis use, unspecified, uncomplicated; R65.10 Systemic inflammatory response syndrome (SIRS) of non-infectious origin without acute organ dysfunction; Z78.9 Other specified health status; R00.0 Tachycardia, unspecified; E87.2 Acidosis; R73.9 Hyperglycemia, unspecified; K21.0 Gastro-esophageal reflux disease with esophagitis; D64.9 Anemia, unspecified; E87.6 Hypokalemia

== ENCOUNTER 2019-11-08 20:56 | Emergency (ER) | payer OTHER ==
[~2019-11-08] VITALS: Ht 177.8 cm; Wt 75.3 kg
[2019-11-08 21:45] LABS: BASO # 0.1 10*3/uL (0.0-0.1); BASO % 0.7 % (0.0-1.0); EOS % 0.3 % (1.0-4.0); HEMATOCRIT 48.3 % (42.0-52.0); LYMPH # 1.8 10*3/uL (1.3-4.4); LYMPH % 13.8 % (27.0-41.0); MEAN CELL VOLUME 82.7 fl (80.0-94.0); MEAN CORPUSCULAR HGB 27.6 pg (27.0-31.0); MEAN CORPUSCULAR HGB CONC 33.3 g/dl (33.0-37.0); MEAN PLATELET VOLUME 10.7 fl (9.6-12.3); MONO # 0.6 10*3/uL (0.1-1.0); MONO % 4.7 % (3.0-9.0); NEUT # 10.6 10*3/uL (2.3-7.9); PLATELET COUNT AUTOMATED 250 10*3/uL (130-400); RED BLOOD COUNT 5.84 10*6/uL (4.50-5.90); RED CELL DISTRI WIDTH 12.8 % (0-14.5); WHITE BLOOD COUNT 13.3 10*3/uL (4.8-10.8)
[2019-11-08 22:01] LABS: ALBUMIN 4.2 gm/dl (3.1-4.5); ALKALINE PHOSPHATASE 82 U/L (45-117); BUN 12 mg/dl (7-24); CHLORIDE 105 mmol/L (98-107); CREATININE 1.03 mg/dL (0.70-1.30); LIPASE 98 U/L (73-393); POTASSIUM 3.2 mmol/L (3.5-5.1); SGOT/AST 15 IU/L (3-35); SGPT/ALT 29 U/L (12-78); SODIUM 139 mmol/L (136-145); TOTAL PROTEIN 8.4 gm/dL (6.4-8.2)
[2019-11-08 22:58] LABS: BILIRUBIN NEGATIVE; BLOOD NEGATIVE (NEGATIVE); CLARITY CLEAR (CLEAR); COLOR YELLOW (YELLOW); GLUCOSE NEGATIVE; KETONE 2+; LEUKO ESTERASE NEGATIVE (NEGATIVE); NITRITE NEGATIVE (NEGATIVE); PH 6.5 (4.5-8.0); SPECIFIC GRAVITY 1.025 (1.001-1.030)
[2019-11-08 23:03] LABS: URINE AMPHETAMINES < 1000 (1000ng/ml); URINE BARBITURATES < 200 (200ng/ml); URINE BENZODIAZEPINES < 200 (200ng/ml); URINE CANNABINOIDS (THC) > 50 (50ng/ml); URINE COCAINE < 300 (300ng/ml); URINE METHADONE < 300 (300ng/ml); URINE OPIATES > 300 (300ng/ml)
[2019-11-08 23:04] LABS: URINE PHENCYCLIDINE < 25 (25ng/ml)
[2019-11-09] MEDS ORDERED: ZOFRAN4 MG PO ×2 (01:19→01:47)
[2019-11-09] MEDS ORDERED: PROTONIX40 MG PO (01:47)
== END 2019-11-09 02:17 | disposition home or self-care (01) ==
LOC: ED 20:56
PROVIDERS: Emergency Medicine Emergency Medical Services
DX: R11.15 Cyclical vomiting syndrome unrelated to migraine (principal); Z90.49 Acquired absence of other specified parts of digestive tract

== ENCOUNTER 2020-02-23 19:04 | Emergency (ER) | payer OTHER ==
[~2020-02-23] VITALS: Ht 177.8 cm; Wt 77.1 kg
[2020-02-23 20:07] LABS: BASO # 0.1 10*3/uL (0.0-0.1); BASO % 0.6 % (0.0-1.0); EOS % 0.1 % (1.0-4.0); HEMATOCRIT 45.1 % (42.0-52.0); LYMPH # 1.7 10*3/uL (1.3-4.4); LYMPH % 9.2 % (27.0-41.0); MEAN CELL VOLUME 85.3 fl (80.0-94.0); MEAN CORPUSCULAR HGB 27.8 pg (27.0-31.0); MEAN CORPUSCULAR HGB CONC 32.6 g/dl (33.0-37.0); MEAN PLATELET VOLUME 10.3 fl (9.6-12.3); MONO # 0.6 10*3/uL (0.1-1.0); MONO % 3.6 % (3.0-9.0); NEUT # 15.4 10*3/uL (2.3-7.9); NEUT % 85.7 % (47.0-73.0); PLATELET COUNT AUTOMATED 321 10*3/uL (130-400); RED BLOOD COUNT 5.29 10*6/uL (4.50-5.90); RED CELL DISTRI WIDTH 13.4 % (0-14.5); WHITE BLOOD COUNT 17.9 10*3/uL (4.8-10.8)
[2020-02-23 20:23] LABS: ALBUMIN 4.5 gm/dl (3.1-4.5); ALKALINE PHOSPHATASE 87 U/L (45-117); BUN 12 mg/dl (7-24); CHLORIDE 106 mmol/L (98-107); CREATININE 1.07 mg/dL (0.70-1.30); LIPASE 64 U/L (73-393); POTASSIUM 3.5 mmol/L (3.5-5.1); SGOT/AST 14 IU/L (3-35); SGPT/ALT 24 U/L (12-78); SODIUM 140 mmol/L (136-145); TOTAL PROTEIN 8.3 gm/dL (6.4-8.2)
== END 2020-02-24 01:00 | disposition home or self-care (01) ==
LOC: ED 19:04
PROVIDERS: Nurse Practitioner Family
DX: R11.2 Nausea with vomiting, unspecified (principal)

== ENCOUNTER 2020-02-25 02:18 | Emergency (ER) | payer OTHER ==
[~2020-02-25] VITALS: Ht 172.7 cm; Wt 54.4 kg
[2020-02-25 03:41] LABS: HEMATOCRIT 48.1 % (42.0-52.0); MEAN CELL VOLUME 84.7 fl (80.0-94.0); MEAN CORPUSCULAR HGB CONC 33.1 g/dl (33.0-37.0); MEAN PLATELET VOLUME 10.3 fl (9.6-12.3); PLATELET COUNT AUTOMATED 311 10*3/uL (130-400); RED BLOOD COUNT 5.68 10*6/uL (4.50-5.90); RED CELL DISTRI WIDTH 13.4 % (0-14.5); WHITE BLOOD COUNT 23.8 10*3/uL (4.8-10.8)
[2020-02-25 03:58] LABS: ALBUMIN 4.6 gm/dl (3.1-4.5); ALKALINE PHOSPHATASE 86 U/L (45-117); BUN 18 mg/dl (7-24); CHLORIDE 100 mmol/L (98-107); CREATININE 0.88 mg/dL (0.70-1.30); POTASSIUM 3.2 mmol/L (3.5-5.1); SGOT/AST 17 IU/L (3-35); SGPT/ALT 24 U/L (12-78); SODIUM 137 mmol/L (136-145); TOTAL PROTEIN 8.7 gm/dL (6.4-8.2)
[2020-02-25 04:02] LABS: BASOPHILS 1 % (0-1); PLATELET SUFFICIENCY NORMAL (NORMAL); TOTAL CELLS COUNTED 100 #CELLS
== END 2020-02-25 07:52 | disposition home or self-care (01) ==
LOC: ED 02:18
PROVIDERS: Emergency Medicine
DX: R11.2 Nausea with vomiting, unspecified (principal); Z79.899 Other long term (current) drug therapy

== ENCOUNTER 2020-02-26 07:02 | Emergency (ER) | payer OTHER ==
[~2020-02-26] VITALS: Ht 177.8 cm; Wt 77.1 kg
[2020-02-26 07:55] LABS: BASO # 0.1 10*3/uL (0.0-0.1); BASO % 0.5 % (0.0-1.0); EOS % 0.1 % (1.0-4.0); LYMPH # 2.1 10*3/uL (1.3-4.4); LYMPH % 12.8 % (27.0-41.0); MEAN CELL VOLUME 82.7 fl (80.0-94.0); MEAN CORPUSCULAR HGB 27.9 pg (27.0-31.0); MEAN CORPUSCULAR HGB CONC 33.7 g/dl (33.0-37.0); MEAN PLATELET VOLUME 10.2 fl (9.6-12.3); MONO # 1.2 10*3/uL (0.1-1.0); MONO % 7.3 % (3.0-9.0); NEUT # 12.7 10*3/uL (2.3-7.9); NEUT % 78.7 % (47.0-73.0); PLATELET COUNT AUTOMATED 319 10*3/uL (130-400); RED BLOOD COUNT 5.56 10*6/uL (4.50-5.90); RED CELL DISTRI WIDTH 13.1 % (0-14.5); WHITE BLOOD COUNT 16.1 10*3/uL (4.8-10.8)
[2020-02-26 08:06] LABS: ALBUMIN 4.2 gm/dl (3.1-4.5); ALKALINE PHOSPHATASE 88 U/L (45-117); BUN 19 mg/dl (7-24); CHLORIDE 100 mmol/L (98-107); CREATININE 0.96 mg/dL (0.70-1.30); LIPASE 77 U/L (73-393); POTASSIUM 2.9 mmol/L (3.5-5.1); SGOT/AST 41 IU/L (3-35); SGPT/ALT 33 U/L (12-78); SODIUM 135 mmol/L (136-145); TOTAL PROTEIN 8.4 gm/dL (6.4-8.2)
== END 2020-02-26 16:09 | disposition home or self-care (01) ==
LOC: ED 07:02
PROVIDERS: Emergency Medicine
DX: R11.2 Nausea with vomiting, unspecified (principal); Z79.899 Other long term (current) drug therapy; Z90.49 Acquired absence of other specified parts of digestive tract

== ENCOUNTER 2020-03-14 09:35 | Emergency (ER) | payer OTHER ==
[~2020-03-14] VITALS: Wt 77.1 kg
[2020-03-14 10:09] LABS: HEMATOCRIT 46.8 % (42.0-52.0); MEAN CELL VOLUME 83.7 fl (80.0-94.0); MEAN CORPUSCULAR HGB 27.9 pg (27.0-31.0); MEAN CORPUSCULAR HGB CONC 33.3 g/dl (33.0-37.0); PLATELET COUNT AUTOMATED 434 10*3/uL (130-400); RED BLOOD COUNT 5.59 10*6/uL (4.50-5.90); RED CELL DISTRI WIDTH 13.7 % (0-14.5); WHITE BLOOD COUNT 22.4 10*3/uL (4.8-10.8)
[2020-03-14 10:20] LABS: ALBUMIN 4.7 gm/dl (3.1-4.5); ALKALINE PHOSPHATASE 85 U/L (45-117); BUN 12 mg/dl (7-24); CHLORIDE 101 mmol/L (98-107); CREATININE 1.24 mg/dL (0.70-1.30); LIPASE 66 U/L (73-393); POTASSIUM 3.2 mmol/L (3.5-5.1); SGOT/AST 17 IU/L (3-35); SGPT/ALT 20 U/L (12-78); SODIUM 138 mmol/L (136-145); TOTAL PROTEIN 8.8 gm/dL (6.4-8.2)
[2020-03-14 10:28] LABS: TOTAL CELLS COUNTED 100 #CELLS
[2020-03-14 10:29] LABS: PLATELET SUFFICIENCY HIGH (NORMAL)
== END 2020-03-14 19:37 | disposition home or self-care (01) ==
LOC: ED 09:35
PROVIDERS: Emergency Medicine
DX: R11.2 Nausea with vomiting, unspecified (principal); I10 Essential (primary) hypertension; F17.200 Nicotine dependence, unspecified, uncomplicated; Z79.899 Other long term (current) drug therapy; Z90.49 Acquired absence of other specified parts of digestive tract

== ENCOUNTER 2020-05-31 17:13 | Inpatient (IN) | payer OTHER ==
[~2020-05-31] VITALS: Ht 180.3 cm; Wt 75.7 kg
[2020-05-31 17:22] VITALS: BP 133/84
[2020-05-31 18:51] LABS: HEMATOCRIT 43.9 % (42.0-52.0); MEAN CELL VOLUME 84.1 fl (80.0-94.0); MEAN CORPUSCULAR HGB CONC 33.3 g/dl (33.0-37.0); MEAN PLATELET VOLUME 10.2 fl (9.6-12.3); PLATELET COUNT AUTOMATED 308 10*3/uL (130-400); RED BLOOD COUNT 5.22 10*6/uL (4.50-5.90); RED CELL DISTRI WIDTH 12.8 % (0-14.5); WHITE BLOOD COUNT 19.3 10*3/uL (4.8-10.8)
[2020-05-31 19:05] LABS: ALKALINE PHOSPHATASE 76 U/L (45-117); BUN 9 mg/dl (7-24); CHLORIDE 109 mmol/L (98-107); CREATININE 1.01 mg/dL (0.70-1.30); LIPASE 88 U/L (73-393); POTASSIUM 3.5 mmol/L (3.5-5.1); SGOT/AST 7 IU/L (3-35); SGPT/ALT 17 U/L (12-78); SODIUM 141 mmol/L (136-145); TOTAL PROTEIN 7.8 gm/dL (6.4-8.2)
[2020-05-31 19:08] LABS: PLATELET SUFFICIENCY NORMAL (NORMAL); TOTAL CELLS COUNTED 100 #CELLS
[2020-05-31 20:00] VITALS: BP 116/64
[2020-05-31 20:20] LABS: BILIRUBIN Negative (Negative); BLOOD Negative (Negative); CLARITY Clear (Clear); COLOR Yellow (Yellow); GLUCOSE 1+ (Negative); KETONE 1+ (Negative); LEUKO ESTERASE Negative (Negative); NITRITE Negative (Negative); PH 7.5 (4.5-8.0); SPECIFIC GRAVITY 1.025 (1.001-1.030); UROBILINOGEN 0.2 E.U./dl (0.0-1.0)
[2020-05-31 20:27] LABS: BACTERIA TRACE; EPITHELIAL CELLS 0-2; RBC 0-2 rbc/hpf (0-2); URINE AMPHETAMINES < 1000 (1000ng/ml); URINE BARBITURATES < 200 (200ng/ml); URINE BENZODIAZEPINES < 200 (200ng/ml); URINE CANNABINOIDS (THC) > 50 (50ng/ml); URINE COCAINE < 300 (300ng/ml); URINE METHADONE < 300 (300ng/ml); URINE OPIATES < 300 (300ng/ml); URINE PHENCYCLIDINE < 25 (25ng/ml)
[2020-05-31 23:00] VITALS: BP 116/64
[2020-06-01 06:20] LABS: BASO % 0.3 % (0.0-1.0); HEMATOCRIT 43.7 % (42.0-52.0); LYMPH # 1.4 10*3/uL (1.3-4.4); LYMPH % 9.3 % (27.0-41.0); MEAN CELL VOLUME 84.9 fl (80.0-94.0); MEAN CORPUSCULAR HGB 28.2 pg (27.0-31.0); MEAN CORPUSCULAR HGB CONC 33.2 g/dl (33.0-37.0); MEAN PLATELET VOLUME 10.6 fl (9.6-12.3); MONO # 1.2 10*3/uL (0.1-1.0); MONO % 7.6 % (3.0-9.0); NEUT # 12.7 10*3/uL (2.3-7.9); NEUT % 82.4 % (47.0-73.0); PLATELET COUNT AUTOMATED 309 10*3/uL (130-400); RED BLOOD COUNT 5.15 10*6/uL (4.50-5.90); RED CELL DISTRI WIDTH 12.8 % (0-14.5); WHITE BLOOD COUNT 15.4 10*3/uL (4.8-10.8)
[2020-06-01 06:36] LABS: ALBUMIN 4.2 gm/dl (3.1-4.5); BUN 7 mg/dl (7-24); CHLORIDE 105 mmol/L (98-107); POTASSIUM 3.4 mmol/L (3.5-5.1); SODIUM 141 mmol/L (136-145)
[2020-06-01 06:47] LABS: ALKALINE PHOSPHATASE 75 U/L (45-117); CREATININE 0.94 mg/dL (0.70-1.30); FREE T4 1.11 ng/dl (0.76-1.46); SGOT/AST 9 IU/L (3-35); SGPT/ALT 18 U/L (12-78)
[2020-06-01 08:00] VITALS: BP 162/100
[2020-06-01 12:00] VITALS: BP 144/98
[2020-06-01 16:00] VITALS: BP 140/91
[2020-06-01 20:00] VITALS: BP 114/71
[2020-06-02] VITALS: BP 137/91
[2020-06-02 08:00] VITALS: BP 126/87
[2020-06-02 12:00] VITALS: BP 135/75
== END 2020-06-02 16:30 | disposition home or self-care (01) | DRG 249 ==
LOC: ED 17:13 → EDHOLD 22:09 → 5E 22:09
PROVIDERS: Internal Medicine; Physician Assistant; ADMIT Internal Medicine; ATTEND Internal Medicine
DX: A08.4 Viral intestinal infection, unspecified (principal); K21.9 Gastro-esophageal reflux disease without esophagitis; E87.6 Hypokalemia; E87.2 Acidosis; R11.15 Cyclical vomiting syndrome unrelated to migraine; F12.90 Cannabis use, unspecified, uncomplicated; R73.9 Hyperglycemia, unspecified; E87.8 Other disorders of electrolyte and fluid balance, not elsewhere classified; E55.9 Vitamin D deficiency, unspecified; Z80.9 Family history of malignant neoplasm, unspecified; Z82.3 Family history of stroke; Z90.49 Acquired absence of other specified parts of digestive tract

== ENCOUNTER 2020-07-26 01:52 | Emergency (ER) | payer OTHER ==
[2020-07-26 04:05] LABS: BASO % 0.2 % (0.0-1.0); HEMATOCRIT 46.4 % (42.0-52.0); LYMPH # 1.3 10*3/uL (1.3-4.4); LYMPH % 6.4 % (27.0-41.0); MEAN CELL VOLUME 82.4 fl (80.0-94.0); MEAN CORPUSCULAR HGB 27.4 pg (27.0-31.0); MEAN CORPUSCULAR HGB CONC 33.2 g/dl (33.0-37.0); MEAN PLATELET VOLUME 10.7 fl (9.6-12.3); MONO # 0.7 10*3/uL (0.1-1.0); MONO % 3.2 % (3.0-9.0); NEUT # 18.2 10*3/uL (2.3-7.9); NEUT % 89.9 % (47.0-73.0); PLATELET COUNT AUTOMATED 281 10*3/uL (130-400); RED BLOOD COUNT 5.63 10*6/uL (4.50-5.90); RED CELL DISTRI WIDTH 13.2 % (0-14.5); WHITE BLOOD COUNT 20.3 10*3/uL (4.8-10.8)
[2020-07-26 04:16] LABS: ALBUMIN 4.3 gm/dl (3.1-4.5); ALKALINE PHOSPHATASE 81 U/L (45-117); BUN 11 mg/dl (7-24); CHLORIDE 105 mmol/L (98-107); CREATININE 0.95 mg/dL (0.70-1.30); LIPASE 55 U/L (73-393); POTASSIUM 3.7 mmol/L (3.5-5.1); SGOT/AST 11 IU/L (3-35); SGPT/ALT 20 U/L (12-78); SODIUM 137 mmol/L (136-145); TOTAL PROTEIN 8.6 gm/dL (6.4-8.2)
== END 2020-07-26 06:58 | disposition home or self-care (01) ==
LOC: ED 01:52
PROVIDERS: Emergency Medicine
DX: R11.15 Cyclical vomiting syndrome unrelated to migraine (principal); K21.9 Gastro-esophageal reflux disease without esophagitis; F17.200 Nicotine dependence, unspecified, uncomplicated; Z90.49 Acquired absence of other specified parts of digestive tract

== ENCOUNTER 2020-07-27 00:53 | Emergency (ER) | payer OTHER | END 2020-07-27 04:09 | disposition home or self-care (01) | LOC: ED 00:53 | DX: R11.10 Vomiting, unspecified (principal); Z90.49 Acquired absence of other specified parts of digestive tract ==

== ENCOUNTER 2020-07-28 09:37 | Emergency (ER) | payer OTHER ==
[~2020-07-28] VITALS: Ht 177.8 cm; Wt 77.1 kg
[2020-07-28 10:26] LABS: BASO # 0.1 10*3/uL (0.0-0.1); BASO % 0.4 % (0.0-1.0); EOS % 0.1 % (1.0-4.0); HEMATOCRIT 46.9 % (42.0-52.0); LYMPH # 2.1 10*3/uL (1.3-4.4); LYMPH % 10.6 % (27.0-41.0); MEAN CORPUSCULAR HGB 27.4 pg (27.0-31.0); MEAN CORPUSCULAR HGB CONC 33.5 g/dl (33.0-37.0); MEAN PLATELET VOLUME 10.2 fl (9.6-12.3); MONO # 1.4 10*3/uL (0.1-1.0); NEUT # 15.9 10*3/uL (2.3-7.9); NEUT % 81.4 % (47.0-73.0); PLATELET COUNT AUTOMATED 314 10*3/uL (130-400); RED BLOOD COUNT 5.72 10*6/uL (4.50-5.90); RED CELL DISTRI WIDTH 13.4 % (0-14.5); WHITE BLOOD COUNT 19.5 10*3/uL (4.8-10.8)
[2020-07-28 10:39] LABS: ALBUMIN 3.8 gm/dl (3.1-4.5); ALKALINE PHOSPHATASE 82 U/L (45-117); BUN 14 mg/dl (7-24); CHLORIDE 97 mmol/L (98-107); CREATININE 0.84 mg/dL (0.70-1.30); LIPASE 80 U/L (73-393); SGOT/AST 13 IU/L (3-35); SGPT/ALT 20 U/L (12-78); SODIUM 133 mmol/L (136-145)
== END 2020-07-28 19:47 | disposition home or self-care (01) ==
LOC: ED 09:37
PROVIDERS: Emergency Medicine
DX: R11.15 Cyclical vomiting syndrome unrelated to migraine (principal); F17.200 Nicotine dependence, unspecified, uncomplicated; Z90.49 Acquired absence of other specified parts of digestive tract; Z98.890 Other specified postprocedural states

== ENCOUNTER 2020-07-29 16:06 | Emergency (ER) | payer OTHER ==
[2020-07-29 17:14] LABS: BASO # 0.1 10*3/uL (0.0-0.1); BASO % 0.7 % (0.0-1.0); EOS % 0.2 % (1.0-4.0); HEMATOCRIT 45.1 % (42.0-52.0); LYMPH # 1.7 10*3/uL (1.3-4.4); LYMPH % 12.5 % (27.0-41.0); MEAN CELL VOLUME 79.4 fl (80.0-94.0); MEAN CORPUSCULAR HGB 27.1 pg (27.0-31.0); MEAN CORPUSCULAR HGB CONC 34.1 g/dl (33.0-37.0); MEAN PLATELET VOLUME 10.1 fl (9.6-12.3); MONO # 0.9 10*3/uL (0.1-1.0); MONO % 6.8 % (3.0-9.0); NEUT # 10.6 10*3/uL (2.3-7.9); NEUT % 79.4 % (47.0-73.0); PLATELET COUNT AUTOMATED 308 10*3/uL (130-400); RED BLOOD COUNT 5.68 10*6/uL (4.50-5.90); WHITE BLOOD COUNT 13.4 10*3/uL (4.8-10.8)
[2020-07-29 17:35] LABS: ALBUMIN 3.5 gm/dl (3.1-4.5); ALKALINE PHOSPHATASE 74 U/L (45-117); BUN 12 mg/dl (7-24); CHLORIDE 99 mmol/L (98-107); CREATININE 0.87 mg/dL (0.70-1.30); LIPASE 115 U/L (73-393); POTASSIUM 2.7 mmol/L (3.5-5.1); SGOT/AST 13 IU/L (3-35); SGPT/ALT 22 U/L (12-78); SODIUM 133 mmol/L (136-145); TOTAL PROTEIN 7.3 gm/dL (6.4-8.2)
== END 2020-07-30 00:59 | disposition home or self-care (01) ==
LOC: ED 16:06
PROVIDERS: Emergency Medicine
DX: R11.15 Cyclical vomiting syndrome unrelated to migraine (principal); E87.6 Hypokalemia; Z90.49 Acquired absence of other specified parts of digestive tract; Z98.890 Other specified postprocedural states

== ENCOUNTER 2020-07-30 17:32 | Emergency (ER) | payer OTHER ==
[~2020-07-30] VITALS: Ht 177.8 cm; Wt 77.1 kg
== END 2020-07-30 21:14 | disposition left against medical advice (07) ==
LOC: ED 17:32
DX: R11.2 Nausea with vomiting, unspecified (principal); Z53.21 Procedure and treatment not carried out due to patient leaving prior to being seen by health care provider

== ENCOUNTER 2020-09-30 09:42 | Inpatient (IN) | payer OTHER ==
[~2020-09-30] VITALS: Ht 177.8 cm; Wt 75.3 kg
[2020-09-30 10:11] VITALS: BP 140/90
[2020-09-30 11:37] LABS: BASO % 0.1 % (0.0-1.0); HEMATOCRIT 45.6 % (42.0-52.0); LYMPH # 1.4 10*3/uL (1.3-4.4); LYMPH % 8.5 % (27.0-41.0); MEAN CELL VOLUME 82.6 fl (80.0-94.0); MEAN CORPUSCULAR HGB 27.5 pg (27.0-31.0); MEAN CORPUSCULAR HGB CONC 33.3 g/dl (33.0-37.0); MEAN PLATELET VOLUME 10.3 fl (9.6-12.3); MONO % 6.1 % (3.0-9.0); NEUT # 13.8 10*3/uL (2.3-7.9); NEUT % 84.9 % (47.0-73.0); PLATELET COUNT AUTOMATED 338 10*3/uL (130-400); RED BLOOD COUNT 5.52 10*6/uL (4.50-5.90); RED CELL DISTRI WIDTH 14.6 % (0-14.5); WHITE BLOOD COUNT 16.3 10*3/uL (4.8-10.8)
[2020-09-30 11:53] LABS: ALBUMIN 4.6 gm/dl (3.1-4.5); ALKALINE PHOSPHATASE 74 U/L (45-117); BUN 8 mg/dl (7-24); CHLORIDE 104 mmol/L (98-107); CREATININE 0.93 mg/dL (0.70-1.30); LIPASE 62 U/L (73-393); POTASSIUM 3.6 mmol/L (3.5-5.1); SGOT/AST 10 IU/L (3-35); SGPT/ALT 18 U/L (12-78); SODIUM 137 mmol/L (136-145); TOTAL PROTEIN 8.6 gm/dL (6.4-8.2)
[2020-09-30 19:17] LABS: BILIRUBIN Negative (Negative); BLOOD Negative (Negative); CLARITY Clear (Clear); COLOR Yellow (Yellow); GLUCOSE Negative (Negative); KETONE 3+ (Negative); LEUKO ESTERASE Negative (Negative); NITRITE Negative (Negative); SPECIFIC GRAVITY >= 1.030 (1.001-1.030)
[2020-09-30 19:25] LABS: URINE AMPHETAMINES < 1000 (1000ng/ml); URINE BARBITURATES < 200 (200ng/ml); URINE BENZODIAZEPINES < 200 (200ng/ml); URINE CANNABINOIDS (THC) > 50 (50ng/ml); URINE COCAINE < 300 (300ng/ml); URINE METHADONE < 300 (300ng/ml); URINE OPIATES < 300 (300ng/ml)
[2020-09-30 19:30] VITALS: BP 136/86
[2020-09-30 19:30] LABS: URINE PHENCYCLIDINE < 25 (25ng/ml)
[2020-09-30 19:33] LABS: PH 8.5 (4.5-8.0)
[2020-09-30 19:37] LABS: MUCOUS 2+
[2020-09-30 22:45] VITALS: BP 148/90
[2020-10-01 06:58] LABS: HEMATOCRIT 46.2 % (42.0-52.0); MEAN CELL VOLUME 84.9 fl (80.0-94.0); MEAN CORPUSCULAR HGB 27.9 pg (27.0-31.0); MEAN CORPUSCULAR HGB CONC 32.9 g/dl (33.0-37.0); MEAN PLATELET VOLUME 11.4 fl (9.6-12.3); PLATELET COUNT AUTOMATED 296 10*3/uL (130-400); RED BLOOD COUNT 5.44 10*6/uL (4.50-5.90); RED CELL DISTRI WIDTH 14.9 % (0-14.5); WHITE BLOOD COUNT 22.6 10*3/uL (4.8-10.8)
[2020-10-01 07:06] LABS: ACT PARTIAL THROMBO TIME 24.2 SECONDS (20.0-32.1)
[2020-10-01 07:23] LABS: ALBUMIN 4.4 gm/dl (3.1-4.5); BUN 9 mg/dl (7-24); CHLORIDE 102 mmol/L (98-107); CREATININE 0.69 mg/dL (0.70-1.30); POTASSIUM 3.3 mmol/L (3.5-5.1); SGOT/AST 32 IU/L (3-35); SGPT/ALT 30 U/L (12-78); SODIUM 134 mmol/L (136-145)
[2020-10-01 07:25] LABS: ALKALINE PHOSPHATASE 73 U/L (45-117); TOTAL PROTEIN 7.9 gm/dL (6.4-8.2)
[2020-10-01 07:41] LABS: PLATELET SUFFICIENCY NORMAL (NORMAL); TOTAL CELLS COUNTED 100 #CELLS
[2020-10-01 08:00] VITALS: BP 173/91
[2020-10-01 08:02] LABS: VITAMIN D, 25-HYDROXY 35.3 ng/mL (30-100)
[2020-10-01 12:00] VITALS: BP 150/90
[2020-10-01 16:00] VITALS: BP 137/78
[2020-10-01 20:00] VITALS: BP 142/83
[2020-10-02] VITALS: BP 157/99
[2020-10-02 08:00] VITALS: BP 136/89
[2020-10-02 10:06] LABS: HEMATOCRIT 45.4 % (42.0-52.0); MEAN CELL VOLUME 84.7 fl (80.0-94.0); MEAN CORPUSCULAR HGB 27.4 pg (27.0-31.0); MEAN CORPUSCULAR HGB CONC 32.4 g/dl (33.0-37.0); MEAN PLATELET VOLUME 10.6 fl (9.6-12.3); PLATELET COUNT AUTOMATED 267 10*3/uL (130-400); RED BLOOD COUNT 5.36 10*6/uL (4.50-5.90); RED CELL DISTRI WIDTH 14.3 % (0-14.5); WHITE BLOOD COUNT 22.9 10*3/uL (4.8-10.8)
[2020-10-02 10:20] LABS: BUN 8 mg/dl (7-24); CHLORIDE 104 mmol/L (98-107); CREATININE 0.64 mg/dL (0.70-1.30); POTASSIUM 3.8 mmol/L (3.5-5.1); SODIUM 130 mmol/L (136-145)
[2020-10-02 10:29] LABS: PLATELET SUFFICIENCY NORMAL (NORMAL); TOTAL CELLS COUNTED 100 #CELLS
[2020-10-02 10:30] LABS: BURR CELLS FEW
[2020-10-02 13:00] VITALS: BP 129/94
[2020-10-02 16:00] VITALS: BP 159/97
== END 2020-10-02 18:24 | disposition left against medical advice (07) | DRG 770 ==
LOC: ED 09:42 → 4E 18:57 → EDHOLD 18:57 → 4E 21:00
PROVIDERS: Emergency Medicine; Family Medicine; Hospitalist; ADMIT Student in an Organized Health Care Education/Training Program; ATTEND Student in an Organized Health Care Education/Training Program
DX: F12.188 Cannabis abuse with other cannabis-induced disorder (principal); E87.1 Hypo-osmolality and hyponatremia; R73.9 Hyperglycemia, unspecified; D72.829 Elevated white blood cell count, unspecified; K21.9 Gastro-esophageal reflux disease without esophagitis; Z53.29 Procedure and treatment not carried out because of patient's decision for other reasons; E87.6 Hypokalemia; R10.13 Epigastric pain; E80.6 Other disorders of bilirubin metabolism; Z90.49 Acquired absence of other specified parts of digestive tract; Z82.3 Family history of stroke; Z80.8 Family history of malignant neoplasm of other organs or systems; Z81.2 Family history of tobacco abuse and dependence; R65.10 Systemic inflammatory response syndrome (SIRS) of non-infectious origin without acute organ dysfunction

== ENCOUNTER 2020-10-06 23:20 | Emergency (ER) | payer OTHER ==
[~2020-10-06] VITALS: Ht 177.8 cm; Wt 72.6 kg
[2020-10-07] MEDS ORDERED: ZOFRAN4 MG PO (00:58)
== END 2020-10-07 01:38 | disposition home or self-care (01) ==
LOC: ED 23:20
DX: R11.2 Nausea with vomiting, unspecified (principal); F12.10 Cannabis abuse, uncomplicated; Z90.49 Acquired absence of other specified parts of digestive tract

== ENCOUNTER 2021-01-09 12:18 | Emergency (ER) | payer OTHER ==
[~2021-01-09] VITALS: Ht 177.8 cm; Wt 74.8 kg
[2021-01-09 13:36] LABS: BASO % 0.1 % (0.0-1.0); HEMATOCRIT 46.3 % (42.0-52.0); LYMPH # 1.4 10*3/uL (1.3-4.4); LYMPH % 7.6 % (27.0-41.0); MEAN CORPUSCULAR HGB 28.3 pg (27.0-31.0); MEAN CORPUSCULAR HGB CONC 33.7 g/dl (33.0-37.0); MEAN PLATELET VOLUME 11.8 fl (9.6-12.3); MONO % 5.3 % (3.0-9.0); NEUT # 16.3 10*3/uL (2.3-7.9); NEUT % 86.6 % (47.0-73.0); PLATELET COUNT AUTOMATED 326 10*3/uL (130-400); RED BLOOD COUNT 5.51 10*6/uL (4.50-5.90); RED CELL DISTRI WIDTH 13.3 % (0-14.5); WHITE BLOOD COUNT 18.9 10*3/uL (4.8-10.8)
[2021-01-09 14:01] LABS: ALBUMIN 4.3 gm/dl (3.1-4.5); ALKALINE PHOSPHATASE 70 U/L (45-117); BUN 17 mg/dl (7-24); CHLORIDE 105 mmol/L (98-107); CREATININE 1.03 mg/dL (0.70-1.30); LIPASE 38 U/L (73-393); POTASSIUM 3.3 mmol/L (3.5-5.1); SGOT/AST 12 IU/L (3-35); SGPT/ALT 20 U/L (12-78); SODIUM 142 mmol/L (136-145); TOTAL PROTEIN 8.1 gm/dL (6.4-8.2)
[2021-01-09] MEDS ORDERED: PHENERGAN25 M3 PO (14:49)
== END 2021-01-09 15:30 | disposition home or self-care (01) ==
LOC: ED 12:18
PROVIDERS: Emergency Medicine
DX: R11.15 Cyclical vomiting syndrome unrelated to migraine (principal); K21.9 Gastro-esophageal reflux disease without esophagitis

== ENCOUNTER 2021-01-10 10:56 | Emergency (ER) | payer OTHER ==
[~2021-01-10] VITALS: Ht 180.3 cm; Wt 65.8 kg
[2021-01-10 11:49] LABS: BASO # 0.1 10*3/uL (0.0-0.1); BASO % 0.3 % (0.0-1.0); EOS % 0.1 % (1.0-4.0); HEMATOCRIT 45.2 % (42.0-52.0); LYMPH % 11.1 % (27.0-41.0); MEAN CELL VOLUME 83.9 fl (80.0-94.0); MEAN CORPUSCULAR HGB 28.2 pg (27.0-31.0); MEAN CORPUSCULAR HGB CONC 33.6 g/dl (33.0-37.0); MEAN PLATELET VOLUME 10.8 fl (9.6-12.3); MONO # 1.3 10*3/uL (0.1-1.0); NEUT # 14.5 10*3/uL (2.3-7.9); NEUT % 81.1 % (47.0-73.0); PLATELET COUNT AUTOMATED 297 10*3/uL (130-400); RED BLOOD COUNT 5.39 10*6/uL (4.50-5.90); RED CELL DISTRI WIDTH 13.2 % (0-14.5); WHITE BLOOD COUNT 17.9 10*3/uL (4.8-10.8)
[2021-01-10 12:09] LABS: ALBUMIN 4.2 gm/dl (3.1-4.5); ALKALINE PHOSPHATASE 71 U/L (45-117); BUN 17 mg/dl (7-24); CHLORIDE 106 mmol/L (98-107); CREATININE 0.93 mg/dL (0.70-1.30); LIPASE 66 U/L (73-393); POTASSIUM 3.3 mmol/L (3.5-5.1); SGOT/AST 19 IU/L (3-35); SGPT/ALT 23 U/L (12-78); SODIUM 138 mmol/L (136-145)
[2021-01-11] MEDS ORDERED: ZOFRAN 4 MG ED2 TAB PO (16:07)
== END 2021-01-10 20:56 | disposition home or self-care (01) ==
LOC: ED 10:56
PROVIDERS: Emergency Medicine
DX: R11.15 Cyclical vomiting syndrome unrelated to migraine (principal); E87.6 Hypokalemia; D72.829 Elevated white blood cell count, unspecified

== ENCOUNTER 2021-01-11 08:11 | Emergency (ER) | payer OTHER ==
[~2021-01-11] VITALS: Ht 177.8 cm; Wt 74.8 kg
[2021-01-11] MEDS ORDERED: ZOFRAN 4 MG ED2 TAB PO (16:07)
== END 2021-01-11 16:37 | disposition home or self-care (01) ==
LOC: ED 08:11
DX: R11.15 Cyclical vomiting syndrome unrelated to migraine (principal); F12.90 Cannabis use, unspecified, uncomplicated

== ENCOUNTER 2021-03-16 20:07 | Emergency (ER) | payer OTHER ==
[~2021-03-16] VITALS: Ht 177.8 cm; Wt 77.1 kg
[~2021-03-16 20:07] MED LIST changes: +ZOFRAN 4 MG ED2 TAB PO
[2021-03-16 21:12] LABS: BASO % 0.2 % (0.0-1.0); HEMATOCRIT 45.8 % (42.0-52.0); LYMPH % 6.1 % (27.0-41.0); MEAN CELL VOLUME 83.9 fl (80.0-94.0); MEAN CORPUSCULAR HGB 28.4 pg (27.0-31.0); MEAN CORPUSCULAR HGB CONC 33.8 g/dl (33.0-37.0); MEAN PLATELET VOLUME 10.7 fl (9.6-12.3); MONO # 0.7 10*3/uL (0.1-1.0); NEUT % 89.4 % (47.0-73.0); PLATELET COUNT AUTOMATED 188 10*3/uL (130-400); RED BLOOD COUNT 5.46 10*6/uL (4.50-5.90); RED CELL DISTRI WIDTH 13.5 % (0-14.5); WHITE BLOOD COUNT 16.8 10*3/uL (4.8-10.8)
[2021-03-16 21:27] LABS: ALBUMIN 4.8 gm/dl (3.1-4.5); ALKALINE PHOSPHATASE 76 U/L (45-117); BUN 8 mg/dl (7-24); CHLORIDE 106 mmol/L (98-107); CREATININE 0.93 mg/dL (0.70-1.30); LIPASE 44 U/L (73-393); POTASSIUM 3.6 mmol/L (3.5-5.1); SGOT/AST 17 IU/L (3-35); SGPT/ALT 22 U/L (12-78); SODIUM 140 mmol/L (136-145); TOTAL PROTEIN 8.5 gm/dL (6.4-8.2)
[2021-03-16] MEDS ORDERED: ZOFRAN4 MG PO (22:53)
== END 2021-03-16 23:31 | disposition home or self-care (01) ==
LOC: ED 20:07
PROVIDERS: Physician Assistant
DX: R11.15 Cyclical vomiting syndrome unrelated to migraine (principal)

== ENCOUNTER 2021-03-18 15:59 | Emergency (ER) | payer OTHER ==
[~2021-03-18] VITALS: Ht 172.7 cm; Wt 77.1 kg
[2021-03-18 19:16] LABS: ALBUMIN 3.8 gm/dl (3.1-4.5); ALKALINE PHOSPHATASE 73 U/L (45-117); CHLORIDE 100 mmol/L (98-107); LIPASE 61 U/L (73-393); POTASSIUM 3.3 mmol/L (3.5-5.1); SGOT/AST 34 IU/L (3-35); SGPT/ALT 32 U/L (12-78); SODIUM 134 mmol/L (136-145); TOTAL PROTEIN 7.6 gm/dL (6.4-8.2)
[2021-03-18 19:26] LABS: BUN 18 mg/dl (7-24)
[2021-03-18 19:32] LABS: BASO % 0.2 % (0.0-1.0); HEMATOCRIT 44.7 % (42.0-52.0); LYMPH # 2.4 10*3/uL (1.3-4.4); LYMPH % 13.3 % (27.0-41.0); MEAN CELL VOLUME 84.7 fl (80.0-94.0); MEAN CORPUSCULAR HGB 28.2 pg (27.0-31.0); MEAN CORPUSCULAR HGB CONC 33.3 g/dl (33.0-37.0); MEAN PLATELET VOLUME 10.4 fl (9.6-12.3); MONO # 1.3 10*3/uL (0.1-1.0); NEUT # 14.3 10*3/uL (2.3-7.9); RED BLOOD COUNT 5.28 10*6/uL (4.50-5.90); RED CELL DISTRI WIDTH 13.5 % (0-14.5); WHITE BLOOD COUNT 18.1 10*3/uL (4.8-10.8)
[2021-03-18 19:34] LABS: PLATELET COUNT AUTOMATED 293 10*3/uL (130-400)
[2021-03-18] MEDS ORDERED: COMPAZINE10 M1 PO ×2 (21:29→21:45)
== END 2021-03-18 21:55 | disposition home or self-care (01) ==
LOC: ED 15:59
PROVIDERS: Physician Assistant
DX: R11.15 Cyclical vomiting syndrome unrelated to migraine (principal); Z79.899 Other long term (current) drug therapy; Z90.49 Acquired absence of other specified parts of digestive tract

== ENCOUNTER → 2021-04-07 | Outpatient (CLI) | payer OTHER ==
[~2021-04-07] MED LIST changes: +COMPAZINE10 M1 PO
== END | disposition home or self-care (01) ==
LOC: NM 03-28 08:00
PROVIDERS: ATTEND Surgery
DX: R11.2 Nausea with vomiting, unspecified (principal)

== ENCOUNTER 2021-06-08 11:59 | Emergency (ER) | payer OTHER ==
[~2021-06-08] VITALS: Wt 77.1 kg
[2021-06-08 14:23] LABS: HEMATOCRIT 45.5 % (42.0-52.0); MEAN CORPUSCULAR HGB 28.6 pg (27.0-31.0); MEAN CORPUSCULAR HGB CONC 34.5 g/dl (33.0-37.0); MEAN PLATELET VOLUME 10.5 fl (9.6-12.3); PLATELET COUNT AUTOMATED 293 10*3/uL (130-400); RED BLOOD COUNT 5.48 10*6/uL (4.50-5.90); WHITE BLOOD COUNT 18.3 10*3/uL (4.8-10.8)
[2021-06-08 14:24] LABS: MANUAL DIFF REFLEX YES
[2021-06-08 14:36] LABS: ALKALINE PHOSPHATASE 77 U/L (45-117); BUN 16 mg/dl (7-24); CHLORIDE 98 mmol/L (98-107); CREATININE 0.99 mg/dL (0.70-1.30); LIPASE 59 U/L (73-393); POTASSIUM 3.6 mmol/L (3.5-5.1); SGOT/AST 13 IU/L (3-35); SGPT/ALT 23 U/L (12-78); SODIUM 137 mmol/L (136-145); TOTAL PROTEIN 8.7 gm/dL (6.4-8.2)
[2021-06-08 14:37] LABS: PLATELET SUFFICIENCY NORMAL (NORMAL); POLYCHROMASIA SLIGHT; TOTAL CELLS COUNTED 100 #CELLS
[2021-06-08 16:26] LABS: BILIRUBIN Negative (Negative); BLOOD Negative (Negative); CLARITY Clear (Clear); COLOR Dark Yellow (Yellow); GLUCOSE Negative (Negative); KETONE 3+ (Negative); LEUKO ESTERASE Trace (Negative); NITRITE Negative (Negative); PH 7.5 (4.5-8.0); SPECIFIC GRAVITY >= 1.030 (1.001-1.030)
[2021-06-08 17:05] LABS: BACTERIA 2+; EPITHELIAL CELLS 0-2; MUCOUS 3+; RBC 0-2 rbc/hpf (0-2)
[2021-06-08] MEDS ORDERED: COMPAZINE10 M1 PO (18:01)
[2021-06-08] MEDS ORDERED: CIPRO500 MG PO (18:01)
== END 2021-06-08 18:52 | disposition home or self-care (01) ==
LOC: ED 11:59
PROVIDERS: Physician Assistant
DX: R11.15 Cyclical vomiting syndrome unrelated to migraine (principal); R82.71 Bacteriuria; Z90.49 Acquired absence of other specified parts of digestive tract

== ENCOUNTER 2021-07-18 22:46 | Emergency (ER) | payer OTHER ==
[~2021-07-18] VITALS: Ht 177.8 cm; Wt 77.1 kg
[2021-07-18 23:37] LABS: BASO # 0.1 10*3/uL (0.0-0.1); BASO % 0.6 % (0.0-1.0); EOS % 0.2 % (1.0-4.0); HEMATOCRIT 42.9 % (42.0-52.0); LYMPH # 1.9 10*3/uL (1.3-4.4); LYMPH % 10.7 % (27.0-41.0); MEAN CORPUSCULAR HGB 28.3 pg (27.0-31.0); MEAN CORPUSCULAR HGB CONC 34.5 g/dl (33.0-37.0); MEAN PLATELET VOLUME 10.5 fl (9.6-12.3); MONO # 0.7 10*3/uL (0.1-1.0); MONO % 4.2 % (3.0-9.0); NEUT # 14.9 10*3/uL (2.3-7.9); PLATELET COUNT AUTOMATED 282 10*3/uL (130-400); RED BLOOD COUNT 5.23 10*6/uL (4.50-5.90); RED CELL DISTRI WIDTH 12.8 % (0-14.5); WHITE BLOOD COUNT 17.8 10*3/uL (4.8-10.8)
[2021-07-18 23:57] LABS: ALKALINE PHOSPHATASE 69 U/L (45-117); BUN 13 mg/dl (7-24); CHLORIDE 108 mmol/L (98-107); CREATININE 0.88 mg/dL (0.70-1.30); LIPASE 177 U/L (73-393); POTASSIUM 3.7 mmol/L (3.5-5.1); SGOT/AST 15 IU/L (3-35); SGPT/ALT 17 U/L (12-78); SODIUM 139 mmol/L (136-145); TOTAL PROTEIN 7.8 gm/dL (6.4-8.2)
[2021-07-19] MEDS ORDERED: COMPAZINE10 M1 PO ×2 (11:16→11:38)
== END 2021-07-19 01:46 | disposition left against medical advice (07) ==
LOC: ED 22:46
PROVIDERS: Emergency Medicine
DX: R11.2 Nausea with vomiting, unspecified (principal); R10.13 Epigastric pain; Z90.49 Acquired absence of other specified parts of digestive tract; Z98.890 Other specified postprocedural states

== ENCOUNTER 2021-07-19 09:45 | Emergency (ER) | payer OTHER ==
[~2021-07-19] VITALS: Ht 177.8 cm; Wt 77.1 kg
[2021-07-19 10:16] LABS: BASO % 0.2 % (0.0-1.0); HEMATOCRIT 42.2 % (42.0-52.0); LYMPH # 1.1 10*3/uL (1.3-4.4); LYMPH % 8.5 % (27.0-41.0); MEAN CELL VOLUME 82.3 fl (80.0-94.0); MEAN CORPUSCULAR HGB 28.7 pg (27.0-31.0); MEAN CORPUSCULAR HGB CONC 34.8 g/dl (33.0-37.0); MEAN PLATELET VOLUME 10.1 fl (9.6-12.3); MONO # 0.7 10*3/uL (0.1-1.0); MONO % 4.9 % (3.0-9.0); NEUT # 11.4 10*3/uL (2.3-7.9); NEUT % 86.2 % (47.0-73.0); PLATELET COUNT AUTOMATED 285 10*3/uL (130-400); RED BLOOD COUNT 5.13 10*6/uL (4.50-5.90); WHITE BLOOD COUNT 13.2 10*3/uL (4.8-10.8)
[2021-07-19 10:35] LABS: ALKALINE PHOSPHATASE 68 U/L (45-117); BUN 13 mg/dl (7-24); CHLORIDE 104 mmol/L (98-107); CREATININE 0.96 mg/dL (0.70-1.30); LIPASE 92 U/L (73-393); POTASSIUM 3.4 mmol/L (3.5-5.1); SGOT/AST 11 IU/L (3-35); SGPT/ALT 21 U/L (12-78); SODIUM 139 mmol/L (136-145); TOTAL PROTEIN 8.1 gm/dL (6.4-8.2)
[2021-07-19] MEDS ORDERED: COMPAZINE10 M1 PO ×2 (11:16→11:38)
== END 2021-07-19 11:30 | disposition home or self-care (01) ==
LOC: ED 09:45
PROVIDERS: Internal Medicine
DX: R11.2 Nausea with vomiting, unspecified (principal); Z90.49 Acquired absence of other specified parts of digestive tract; Z98.890 Other specified postprocedural states

== ENCOUNTER 2021-09-27 00:45 | Emergency (ER) | payer OTHER ==
[2021-09-27 01:14] LABS: HEMATOCRIT 49.5 % (42.0-52.0); MEAN CELL VOLUME 83.2 fl (80.0-94.0); MEAN CORPUSCULAR HGB 28.1 pg (27.0-31.0); MEAN CORPUSCULAR HGB CONC 33.7 g/dl (33.0-37.0); MEAN PLATELET VOLUME 10.2 fl (9.6-12.3); PLATELET COUNT AUTOMATED 309 10*3/uL (130-400); RED BLOOD COUNT 5.95 10*6/uL (4.50-5.90); RED CELL DISTRI WIDTH 13.1 % (0-14.5); WHITE BLOOD COUNT 22.2 10*3/uL (4.8-10.8)
[2021-09-27] MEDS ORDERED: Ondansetron4 MG PO (01:18)
[2021-09-27 01:21] LABS: MANUAL DIFF REFLEX YES
[2021-09-27 01:30] LABS: ALKALINE PHOSPHATASE 72 U/L (45-117); BUN 19 mg/dl (7-24); CHLORIDE 91 mmol/L (98-107); CREATININE 1.12 mg/dL (0.70-1.30); POTASSIUM 3.2 mmol/L (3.5-5.1); SGOT/AST 22 IU/L (3-35); SGPT/ALT 26 U/L (12-78); SODIUM 133 mmol/L (136-145); TOTAL PROTEIN 8.5 gm/dL (6.4-8.2)
[2021-09-27 01:36] LABS: PLATELET SUFFICIENCY NORMAL (NORMAL); TOTAL CELLS COUNTED 100 #CELLS
== END 2021-09-27 04:09 | disposition home or self-care (01) ==
LOC: ED 00:45
PROVIDERS: Emergency Medicine
DX: R11.2 Nausea with vomiting, unspecified (principal); R19.7 Diarrhea, unspecified; Z90.49 Acquired absence of other specified parts of digestive tract

== ENCOUNTER 2021-12-16 16:23 | Emergency (ER) | payer OTHER ==
[~2021-12-16] VITALS: Ht 177.8 cm; Wt 77.1 kg
[2021-12-16 18:27] LABS: HEMATOCRIT 46.5 % (42.0-52.0); MEAN CELL VOLUME 85.3 fl (80.0-94.0); MEAN CORPUSCULAR HGB 28.8 pg (27.0-31.0); MEAN CORPUSCULAR HGB CONC 33.8 g/dl (33.0-37.0); MEAN PLATELET VOLUME 10.5 fl (9.6-12.3); PLATELET COUNT AUTOMATED 306 10*3/uL (130-400); RED BLOOD COUNT 5.45 10*6/uL (4.50-5.90); RED CELL DISTRI WIDTH 13.2 % (0-14.5)
[2021-12-16 18:28] LABS: MANUAL DIFF REFLEX YES
[2021-12-16 18:38] LABS: ACT PARTIAL THROMBO TIME 21.7 SECONDS (20.0-32.1)
[2021-12-16 18:42] LABS: ALKALINE PHOSPHATASE 65 U/L (45-117); BUN 12 mg/dl (7-24); CHLORIDE 108 mmol/L (98-107); CREATININE 0.91 mg/dL (0.70-1.30); LIPASE 82 U/L (73-393); POTASSIUM 3.1 mmol/L (3.5-5.1); SGOT/AST 18 IU/L (3-35); SGPT/ALT 26 U/L (12-78); SODIUM 138 mmol/L (136-145); TOTAL PROTEIN 8.3 gm/dL (6.4-8.2)
[2021-12-16 19:31] LABS: BASOPHILS 1 % (0-1); PLATELET SUFFICIENCY NORMAL (NORMAL); TOTAL CELLS COUNTED 100 #CELLS
[2021-12-16 19:32] LABS: BURR CELLS FEW
== END 2021-12-17 02:53 | disposition left against medical advice (07) ==
LOC: ED 16:23
PROVIDERS: Family Medicine
DX: R11.15 Cyclical vomiting syndrome unrelated to migraine (principal); Z79.899 Other long term (current) drug therapy; Z90.49 Acquired absence of other specified parts of digestive tract

== ENCOUNTER 2021-12-17 20:52 | Emergency (ER) | payer OTHER ==
[2021-12-17 22:04] LABS: HEMATOCRIT 40.6 % (42.0-52.0); MEAN PLATELET VOLUME 10.4 fl (9.6-12.3); PLATELET COUNT AUTOMATED 276 10*3/uL (130-400); RED BLOOD COUNT 4.89 10*6/uL (4.50-5.90); WHITE BLOOD COUNT 25.2 10*3/uL (4.8-10.8)
[2021-12-17 22:07] LABS: MANUAL DIFF REFLEX YES
[2021-12-17 22:18] LABS: ACT PARTIAL THROMBO TIME 23.6 SECONDS (20.0-32.1)
[2021-12-17 22:24] LABS: ALKALINE PHOSPHATASE 56 U/L (45-117); BUN 14 mg/dl (7-24); CHLORIDE 93 mmol/L (98-107); CREATININE 0.73 mg/dL (0.70-1.30); LIPASE 95 U/L (73-393); POTASSIUM 3.2 mmol/L (3.5-5.1); SGOT/AST 14 IU/L (3-35); SGPT/ALT 22 U/L (12-78); SODIUM 132 mmol/L (136-145); TOTAL PROTEIN 7.6 gm/dL (6.4-8.2)
[2021-12-17 22:40] LABS: PLATELET SUFFICIENCY NORMAL (NORMAL); TOTAL CELLS COUNTED 100 #CELLS
== END 2021-12-18 01:40 | disposition left against medical advice (07) ==
LOC: ED 20:52
PROVIDERS: Family Medicine
DX: R11.15 Cyclical vomiting syndrome unrelated to migraine (principal); Z53.29 Procedure and treatment not carried out because of patient's decision for other reasons; Z79.899 Other long term (current) drug therapy; Z90.49 Acquired absence of other specified parts of digestive tract

== ENCOUNTER 2021-12-19 12:55 | Inpatient (IN) | payer OTHER ==
[~2021-12-19] VITALS: Ht 178 cm; Wt 72.6 kg
[2021-12-19 14:15] VITALS: BP 145/100
[2021-12-19 15:10] LABS: HEMATOCRIT 43.3 % (42.0-52.0); MEAN CELL VOLUME 84.7 fl (80.0-94.0); MEAN CORPUSCULAR HGB 29.2 pg (27.0-31.0); MEAN CORPUSCULAR HGB CONC 34.4 g/dl (33.0-37.0); MEAN PLATELET VOLUME 10.3 fl (9.6-12.3); PLATELET COUNT AUTOMATED 292 10*3/uL (130-400); RED BLOOD COUNT 5.11 10*6/uL (4.50-5.90); WHITE BLOOD COUNT 18.8 10*3/uL (4.8-10.8)
[2021-12-19 15:13] LABS: MANUAL DIFF REFLEX YES
[2021-12-19 15:27] LABS: ALKALINE PHOSPHATASE 57 U/L (45-117); BUN 17 mg/dl (7-24); CHLORIDE 93 mmol/L (98-107); CREATININE 0.88 mg/dL (0.70-1.30); LIPASE 81 U/L (73-393); POTASSIUM 2.9 mmol/L (3.5-5.1); SGOT/AST 49 IU/L (3-35); SGPT/ALT 58 U/L (12-78); SODIUM 136 mmol/L (136-145); TOTAL PROTEIN 7.8 gm/dL (6.4-8.2)
[2021-12-19 15:45] LABS: PLATELET SUFFICIENCY NORMAL (NORMAL); TOTAL CELLS COUNTED 100 #CELLS; TOXIC GRANULATION SLIGHT
[2021-12-19 16:59] LABS: BILIRUBIN Negative (Negative); BLOOD Negative (Negative); CLARITY Clear (Clear); COLOR Yellow (Yellow); GLUCOSE Negative (Negative); KETONE 4+ (Negative); LEUKO ESTERASE Negative (Negative); NITRITE Negative (Negative); PH 6.5 (4.5-8.0); SPECIFIC GRAVITY >= 1.030 (1.001-1.030)
[2021-12-19 17:08] LABS: URINE AMPHETAMINES < 1000 (1000ng/ml); URINE BARBITURATES < 200 (200ng/ml); URINE BENZODIAZEPINES > 200 (200ng/ml); URINE CANNABINOIDS (THC) > 50 (50ng/ml); URINE COCAINE < 300 (300ng/ml); URINE METHADONE < 300 (300ng/ml); URINE OPIATES < 300 (300ng/ml)
[2021-12-19 17:13] LABS: MUCOUS 2+; WBC 0-2 wbc/hpf (0-5)
[2021-12-19 17:14] LABS: RBC 0-2 rbc/hpf (0-2)
[2021-12-19 17:15] LABS: URINE PHENCYCLIDINE < 25 (25ng/ml)
[2021-12-19 20:05] VITALS: BP 131/84
[2021-12-20] VITALS: BP 143/90
[2021-12-20 06:50] LABS: BASO # 0.1 10*3/uL (0.0-0.1); BASO % 0.5 % (0.0-1.0); EOS # 0.1 10*3/uL (0.0-0.4); EOS % 0.9 % (1.0-4.0); HEMATOCRIT 36.3 % (42.0-52.0); LYMPH # 2.8 10*3/uL (1.3-4.4); LYMPH % 21.6 % (27.0-41.0); MEAN CELL VOLUME 85.4 fl (80.0-94.0); MEAN CORPUSCULAR HGB 28.7 pg (27.0-31.0); MEAN CORPUSCULAR HGB CONC 33.6 g/dl (33.0-37.0); MEAN PLATELET VOLUME 10.6 fl (9.6-12.3); MONO # 1.3 10*3/uL (0.1-1.0); MONO % 9.9 % (3.0-9.0); NEUT # 8.5 10*3/uL (2.3-7.9); NEUT % 66.6 % (47.0-73.0); PLATELET COUNT AUTOMATED 256 10*3/uL (130-400); RED BLOOD COUNT 4.25 10*6/uL (4.50-5.90); RED CELL DISTRI WIDTH 13.3 % (0-14.5); WHITE BLOOD COUNT 12.8 10*3/uL (4.8-10.8)
[2021-12-20 07:05] LABS: ALKALINE PHOSPHATASE 46 U/L (45-117); BUN 12 mg/dl (7-24); CHLORIDE 100 mmol/L (98-107); CREATININE 0.77 mg/dL (0.70-1.30); POTASSIUM 2.6 mmol/L (3.5-5.1); SGOT/AST 45 IU/L (3-35); SGPT/ALT 63 U/L (12-78); SODIUM 136 mmol/L (136-145); TOTAL PROTEIN 6.1 gm/dL (6.4-8.2)
[2021-12-20 08:00] VITALS: BP 155/96
[2021-12-20 12:00] VITALS: BP 141/76
[2021-12-20 16:00] VITALS: BP 134/86
[2021-12-20 17:56] LABS: BUN 10 mg/dl (7-24); CHLORIDE 100 mmol/L (98-107); CREATININE 0.61 mg/dL (0.70-1.30); POTASSIUM 2.9 mmol/L (3.5-5.1); SODIUM 134 mmol/L (136-145)
[2021-12-20 20:00] VITALS: BP 130/85
[2021-12-21] VITALS (8 sets, daily range): BP systolic 106–176; BP diastolic 80–106
[2021-12-21 06:48] LABS: ALKALINE PHOSPHATASE 47 U/L (45-117); BUN 12 mg/dl (7-24); CHLORIDE 101 mmol/L (98-107); CREATININE 0.69 mg/dL (0.70-1.30); POTASSIUM 3.2 mmol/L (3.5-5.1); SGOT/AST 40 IU/L (3-35); SGPT/ALT 79 U/L (12-78); SODIUM 137 mmol/L (136-145); TOTAL PROTEIN 6.2 gm/dL (6.4-8.2)
[2021-12-21 06:56] LABS: BASO % 0.1 % (0.0-1.0); EOS % 0.1 % (1.0-4.0); HEMATOCRIT 36.4 % (42.0-52.0); LYMPH # 1.8 10*3/uL (1.3-4.4); LYMPH % 12.4 % (27.0-41.0); MEAN CELL VOLUME 83.1 fl (80.0-94.0); MEAN CORPUSCULAR HGB 29.2 pg (27.0-31.0); MEAN CORPUSCULAR HGB CONC 35.2 g/dl (33.0-37.0); MEAN PLATELET VOLUME 10.5 fl (9.6-12.3); MONO # 0.8 10*3/uL (0.1-1.0); MONO % 5.8 % (3.0-9.0); NEUT # 11.5 10*3/uL (2.3-7.9); NEUT % 80.8 % (47.0-73.0); PLATELET COUNT AUTOMATED 293 10*3/uL (130-400); RED BLOOD COUNT 4.38 10*6/uL (4.50-5.90); RED CELL DISTRI WIDTH 12.8 % (0-14.5); WHITE BLOOD COUNT 14.2 10*3/uL (4.8-10.8)
[2021-12-21 15:38] LABS: BUN 14 mg/dl (7-24); CHLORIDE 104 mmol/L (98-107); CREATININE 0.95 mg/dL (0.70-1.30); POTASSIUM 3.2 mmol/L (3.5-5.1); SODIUM 134 mmol/L (136-145)
[2021-12-22] VITALS: BP 154/91
[2021-12-22 06:40] LABS: BASO % 0.2 % (0.0-1.0); EOS # 0.2 10*3/uL (0.0-0.4); HEMATOCRIT 36.9 % (42.0-52.0); LYMPH # 3.4 10*3/uL (1.3-4.4); LYMPH % 22.8 % (27.0-41.0); MEAN CELL VOLUME 85.2 fl (80.0-94.0); MEAN CORPUSCULAR HGB 29.1 pg (27.0-31.0); MEAN CORPUSCULAR HGB CONC 34.1 g/dl (33.0-37.0); MEAN PLATELET VOLUME 10.8 fl (9.6-12.3); MONO # 1.5 10*3/uL (0.1-1.0); MONO % 10.1 % (3.0-9.0); NEUT # 9.7 10*3/uL (2.3-7.9); NEUT % 65.3 % (47.0-73.0); PLATELET COUNT AUTOMATED 294 10*3/uL (130-400); RED BLOOD COUNT 4.33 10*6/uL (4.50-5.90); RED CELL DISTRI WIDTH 13.2 % (0-14.5); WHITE BLOOD COUNT 14.9 10*3/uL (4.8-10.8)
[2021-12-22 07:00] LABS: ALKALINE PHOSPHATASE 46 U/L (45-117); BUN 13 mg/dl (7-24); CHLORIDE 104 mmol/L (98-107); CREATININE 0.89 mg/dL (0.70-1.30); POTASSIUM 2.8 mmol/L (3.5-5.1); SGOT/AST 23 IU/L (3-35); SGPT/ALT 68 U/L (12-78); SODIUM 141 mmol/L (136-145)
[2021-12-22 08:00] VITALS: BP 132/80
== END 2021-12-22 14:19 | disposition left against medical advice (07) | DRG 242 ==
LOC: ED 12:55 → EDHOLD 16:45 → 5E 16:45 → EDHOLD 17:02 → 5E 19:27
PROVIDERS: Emergency Medicine; Internal Medicine; Student in an Organized Health Care Education/Training Program; ADMIT Emergency Medicine; ATTEND Emergency Medicine
PROC: 0DB48ZX Excision of Esophagogastric Junction, Via Natural or Artificial Opening Endoscopic, Diagnostic (ICD-10-PCS; principal; 2021-12-21)
PROC: 0DB78ZX Excision of Stomach, Pylorus, Via Natural or Artificial Opening Endoscopic, Diagnostic (ICD-10-PCS; 2021-12-21)
PROC: 0DJD8ZZ Inspection of Lower Intestinal Tract, Via Natural or Artificial Opening Endoscopic (ICD-10-PCS; 2021-12-21)
DX: K22.11 Ulcer of esophagus with bleeding (principal); K21.01 Gastro-esophageal reflux disease with esophagitis, with bleeding; A08.4 Viral intestinal infection, unspecified; F12.188 Cannabis abuse with other cannabis-induced disorder; K44.9 Diaphragmatic hernia without obstruction or gangrene; F12.10 Cannabis abuse, uncomplicated; E87.6 Hypokalemia; R11.15 Cyclical vomiting syndrome unrelated to migraine; D72.829 Elevated white blood cell count, unspecified; R73.9 Hyperglycemia, unspecified; E80.6 Other disorders of bilirubin metabolism; R74.01 Elevation of levels of liver transaminase levels; Z53.29 Procedure and treatment not carried out because of patient's decision for other reasons; Z90.49 Acquired absence of other specified parts of digestive tract

== ENCOUNTER 2022-01-25 02:15 | Emergency (ER) | payer OTHER ==
[~2022-01-25] VITALS: Ht 177.8 cm; Wt 72.6 kg
[2022-01-25 02:46] LABS: HEMATOCRIT 44.4 % (42.0-52.0); MEAN CELL VOLUME 85.7 fl (80.0-94.0); MEAN CORPUSCULAR HGB 28.4 pg (27.0-31.0); MEAN CORPUSCULAR HGB CONC 33.1 g/dl (33.0-37.0); MEAN PLATELET VOLUME 10.6 fl (9.6-12.3); PLATELET COUNT AUTOMATED 344 10*3/uL (130-400); RED BLOOD COUNT 5.18 10*6/uL (4.50-5.90)
[2022-01-25 02:47] LABS: MANUAL DIFF REFLEX YES
[2022-01-25 03:02] LABS: ALKALINE PHOSPHATASE 71 U/L (45-117); BUN 14 mg/dl (7-24); CHLORIDE 103 mmol/L (98-107); CREATININE 1.06 mg/dL (0.70-1.30); LIPASE 91 U/L (73-393); POTASSIUM 3.8 mmol/L (3.5-5.1); SGPT/ALT 18 U/L (12-78); SODIUM 138 mmol/L (136-145); TOTAL PROTEIN 8.6 gm/dL (6.4-8.2)
[2022-01-25 03:12] LABS: PLATELET SUFFICIENCY NORMAL (NORMAL); TOTAL CELLS COUNTED 100 #CELLS
== END 2022-01-25 06:59 | disposition home or self-care (01) ==
LOC: ED 02:15
PROVIDERS: Internal Medicine
DX: R11.15 Cyclical vomiting syndrome unrelated to migraine (principal); D72.829 Elevated white blood cell count, unspecified; Z90.49 Acquired absence of other specified parts of digestive tract; Z98.890 Other specified postprocedural states

== ENCOUNTER 2022-01-25 12:37 | Emergency (ER) | payer OTHER ==
[~2022-01-25] VITALS: Ht 177.8 cm; Wt 77.1 kg
[2022-01-25 13:28] LABS: HEMATOCRIT 40.6 % (42.0-52.0); MEAN CELL VOLUME 84.8 fl (80.0-94.0); MEAN CORPUSCULAR HGB 28.8 pg (27.0-31.0); MEAN PLATELET VOLUME 10.2 fl (9.6-12.3); PLATELET COUNT AUTOMATED 294 10*3/uL (130-400); RED BLOOD COUNT 4.79 10*6/uL (4.50-5.90); RED CELL DISTRI WIDTH 13.2 % (0-14.5); WHITE BLOOD COUNT 24.6 10*3/uL (4.8-10.8)
[2022-01-25 13:36] LABS: MANUAL DIFF REFLEX YES
[2022-01-25 13:45] LABS: TOTAL CELLS COUNTED 100 #CELLS
[2022-01-25 13:46] LABS: ALKALINE PHOSPHATASE 64 U/L (45-117); BUN 13 mg/dl (7-24); CHLORIDE 102 mmol/L (98-107); CREATININE 0.85 mg/dL (0.70-1.30); LIPASE 205 U/L (73-393); PLATELET SUFFICIENCY NORMAL (NORMAL); POTASSIUM 3.3 mmol/L (3.5-5.1); SGOT/AST 8 IU/L (3-35); SGPT/ALT 17 U/L (12-78); SODIUM 137 mmol/L (136-145); TOXIC GRANULATION SLIGHT; VACUOLATION OF NEUTROPHILS SLIGHT
== END 2022-01-25 17:47 | disposition home or self-care (01) ==
LOC: ED 12:37
PROVIDERS: Physician Assistant
DX: R11.2 Nausea with vomiting, unspecified (principal); R10.84 Generalized abdominal pain; Z90.49 Acquired absence of other specified parts of digestive tract; Z98.890 Other specified postprocedural states

== ENCOUNTER 2022-01-26 09:26 | Emergency (ER) | payer OTHER ==
[~2022-01-26] VITALS: Wt 72.6 kg
[2022-01-26 11:33] LABS: BASO % 0.3 % (0.0-1.0); HEMATOCRIT 38.9 % (42.0-52.0); LYMPH # 1.1 10*3/uL (1.3-4.4); LYMPH % 7.7 % (27.0-41.0); MEAN CELL VOLUME 84.4 fl (80.0-94.0); MEAN CORPUSCULAR HGB 28.6 pg (27.0-31.0); MEAN CORPUSCULAR HGB CONC 33.9 g/dl (33.0-37.0); MEAN PLATELET VOLUME 10.5 fl (9.6-12.3); MONO # 0.9 10*3/uL (0.1-1.0); MONO % 6.1 % (3.0-9.0); NEUT # 12.1 10*3/uL (2.3-7.9); NEUT % 85.5 % (47.0-73.0); PLATELET COUNT AUTOMATED 240 10*3/uL (130-400); RED BLOOD COUNT 4.61 10*6/uL (4.50-5.90); WHITE BLOOD COUNT 14.2 10*3/uL (4.8-10.8)
[2022-01-26 11:55] LABS: ALKALINE PHOSPHATASE 59 U/L (45-117); BUN 10 mg/dl (7-24); CHLORIDE 102 mmol/L (98-107); CREATININE 0.73 mg/dL (0.70-1.30); LIPASE 136 U/L (73-393); POTASSIUM 3.4 mmol/L (3.5-5.1); SGOT/AST 14 IU/L (3-35); SGPT/ALT 19 U/L (12-78); SODIUM 135 mmol/L (136-145); TOTAL PROTEIN 7.5 gm/dL (6.4-8.2)
== END 2022-01-26 19:21 | disposition home or self-care (01) ==
LOC: ED 09:26
PROVIDERS: Emergency Medicine
DX: R11.2 Nausea with vomiting, unspecified (principal); Z90.49 Acquired absence of other specified parts of digestive tract; Z98.890 Other specified postprocedural states

== ENCOUNTER 2022-02-13 10:23 | Emergency (ER) | payer OTHER ==
[~2022-02-13] VITALS: Ht 177.8 cm; Wt 74.8 kg
[2022-02-13 12:16] LABS: ALKALINE PHOSPHATASE 56 U/L (46-116); CHLORIDE 100 mmol/L (98-107); CREATININE 0.88 mg/dL (0.70-1.30); LIPASE 30 U/L (12-53); POTASSIUM 4.1 mmol/L (3.4-5.1); SGPT/ALT 13 U/L (10-49); SODIUM 136 mmol/L (136-145)
[2022-02-13 12:17] LABS: TOTAL PROTEIN 7.6 gm/dL (6.0-8.0)
[2022-02-13 12:19] LABS: BUN < 5 mg/dl (9-23)
[2022-02-13 12:37] LABS: BASO # 0.1 10*3/uL (0.0-0.1); BASO % 0.5 % (0.0-1.0); HEMATOCRIT 40.2 % (42.0-52.0); LYMPH # 0.9 10*3/uL (1.3-4.4); LYMPH % 6.1 % (27.0-41.0); MEAN CORPUSCULAR HGB 28.3 pg (27.0-31.0); MEAN CORPUSCULAR HGB CONC 33.3 g/dl (33.0-37.0); MONO # 0.5 10*3/uL (0.1-1.0); MONO % 3.1 % (3.0-9.0); NEUT # 13.8 10*3/uL (2.3-7.9); NEUT % 89.8 % (47.0-73.0); PLATELET COUNT AUTOMATED 320 10*3/uL (130-400); RED BLOOD COUNT 4.73 10*6/uL (4.50-5.90); RED CELL DISTRI WIDTH 13.1 % (0-14.5); WHITE BLOOD COUNT 15.4 10*3/uL (4.8-10.8)
== END 2022-02-13 15:29 | disposition left against medical advice (07) ==
LOC: ED 10:23
PROVIDERS: Nurse Practitioner Family
DX: R11.10 Vomiting, unspecified (principal); Z90.49 Acquired absence of other specified parts of digestive tract; F17.200 Nicotine dependence, unspecified, uncomplicated

== ENCOUNTER 2022-02-25 16:38 | Emergency (ER) | payer OTHER ==
[~2022-02-25] VITALS: Wt 59.0 kg
[2022-02-25 18:16] LABS: BASO # 0.1 10*3/uL (0.0-0.1); BASO % 0.7 % (0.0-1.0); EOS % 0.1 % (1.0-4.0); HEMATOCRIT 45.1 % (42.0-52.0); LYMPH # 1.3 10*3/uL (1.3-4.4); LYMPH % 8.9 % (27.0-41.0); MEAN CELL VOLUME 83.8 fl (80.0-94.0); MEAN CORPUSCULAR HGB 28.4 pg (27.0-31.0); MEAN CORPUSCULAR HGB CONC 33.9 g/dl (33.0-37.0); MEAN PLATELET VOLUME 10.5 fl (9.6-12.3); MONO # 0.6 10*3/uL (0.1-1.0); MONO % 3.9 % (3.0-9.0); NEUT # 12.6 10*3/uL (2.3-7.9); NEUT % 86.1 % (47.0-73.0); PLATELET COUNT AUTOMATED 329 10*3/uL (130-400); RED BLOOD COUNT 5.38 10*6/uL (4.50-5.90); WHITE BLOOD COUNT 14.6 10*3/uL (4.8-10.8)
[2022-02-25 18:30] LABS: ALKALINE PHOSPHATASE 63 U/L (46-116); BUN 7 mg/dl (9-23); CHLORIDE 100 mmol/L (98-107); CREATININE 0.86 mg/dL (0.70-1.30); LIPASE 31 U/L (12-53); POTASSIUM 3.6 mmol/L (3.4-5.1); SGPT/ALT 11 U/L (10-49); SODIUM 135 mmol/L (136-145); TOTAL PROTEIN 7.3 gm/dL (6.0-8.0)
[2022-02-25 21:33] LABS: BILIRUBIN Negative (Negative); BLOOD Negative (Negative); CLARITY Clear (Clear); COLOR Yellow (Yellow); GLUCOSE Negative (Negative); KETONE 4+ (Negative); LEUKO ESTERASE Negative (Negative); NITRITE Negative (Negative); SPECIFIC GRAVITY >= 1.030 (1.001-1.030)
[2022-02-25 21:49] LABS: URINE AMPHETAMINES Negative (1000ng/ml); URINE BARBITURATES Negative (200ng/ml); URINE BENZODIAZEPINES Negative (200ng/ml); URINE CANNABINOIDS (THC) Positive (50ng/ml); URINE COCAINE Negative (300ng/ml); URINE METHADONE Negative (300ng/ml); URINE OPIATES Negative (300ng/ml); URINE PHENCYCLIDINE Negative (25ng/ml)
[2022-02-25 22:09] LABS: BACTERIA TRACE; MUCOUS 1+; WBC 0-2 wbc/hpf (0-5)
== END 2022-02-26 01:54 | disposition home or self-care (01) ==
LOC: ED 16:38
PROVIDERS: Family Medicine
DX: R11.15 Cyclical vomiting syndrome unrelated to migraine (principal); R11.10 Vomiting, unspecified; F12.10 Cannabis abuse, uncomplicated; Z90.49 Acquired absence of other specified parts of digestive tract; Z98.890 Other specified postprocedural states

== ENCOUNTER 2023-01-28 22:11 | Emergency (ER) | payer OTHER ==
[~2023-01-28] VITALS: Ht 180.3 cm; Wt 70.3 kg
[~2023-01-28 22:11] MED LIST changes: +ONDANSETRON HYDR4 M1 PO; +ONDANSETRON4 MG SL; +PEPCID40 MG PO
[2023-01-28 23:55] LABS: BASO # 0.2 10*3/uL (0.0-0.1); BASO % 0.9 % (0.0-1.0); EOS # 0.1 10*3/uL (0.0-0.4); EOS % 0.4 % (1.0-4.0); HEMATOCRIT 47.3 % (42.0-52.0); LYMPH # 2.2 10*3/uL (1.3-4.4); LYMPH % 11.8 % (27.0-41.0); MEAN CELL VOLUME 84.8 fl (80.0-94.0); MEAN CORPUSCULAR HGB 29.2 pg (27.0-31.0); MEAN CORPUSCULAR HGB CONC 34.5 g/dl (33.0-37.0); MEAN PLATELET VOLUME 10.3 fl (9.6-12.3); MONO # 0.9 10*3/uL (0.1-1.0); MONO % 4.8 % (3.0-9.0); NEUT # 14.8 10*3/uL (2.3-7.9); NEUT % 81.6 % (47.0-73.0); PLATELET COUNT AUTOMATED 283 10*3/uL (130-400); RED BLOOD COUNT 5.58 10*6/uL (4.50-5.90); RED CELL DISTRI WIDTH 12.8 % (0-14.5); WHITE BLOOD COUNT 18.2 10*3/uL (4.8-10.8)
[2023-01-28 23:57] LABS: ACT PARTIAL THROMBO TIME 20.2 SECONDS (20.0-32.1)
[2023-01-29 00:04] LABS: ALKALINE PHOSPHATASE 63 U/L (46-116); BUN 7 mg/dl (9-23); CHLORIDE 105 mmol/L (98-107); LIPASE 37 U/L (12-53); POTASSIUM 3.4 mmol/L (3.4-5.1); SGPT/ALT 9 U/L (5-49); TOTAL PROTEIN 7.5 gm/dL (6.0-8.0)
== END 2023-01-29 02:09 | disposition home or self-care (01) ==
LOC: ED 22:11
PROVIDERS: Internal Medicine
DX: R11.2 Nausea with vomiting, unspecified (principal); F12.10 Cannabis abuse, uncomplicated; I10 Essential (primary) hypertension; R10.2 Pelvic and perineal pain; Z90.49 Acquired absence of other specified parts of digestive tract; Z98.890 Other specified postprocedural states

== ENCOUNTER 2023-01-29 09:50 | Emergency (ER) | payer OTHER ==
[~2023-01-29] VITALS: Wt 68.0 kg
== END 2023-01-29 13:10 | disposition home or self-care (01) ==
LOC: ED 09:50
DX: R11.15 Cyclical vomiting syndrome unrelated to migraine (principal); I10 Essential (primary) hypertension; E87.6 Hypokalemia; E87.8 Other disorders of electrolyte and fluid balance, not elsewhere classified; K21.9 Gastro-esophageal reflux disease without esophagitis; Z90.49 Acquired absence of other specified parts of digestive tract; Z98.890 Other specified postprocedural states; F12.10 Cannabis abuse, uncomplicated

== ENCOUNTER 2023-04-30 09:42 | Emergency (ER) | payer OTHER ==
[~2023-04-30] VITALS: Ht 180.3 cm; Wt 71.2 kg
[2023-04-30] MEDS ORDERED: Ondansetron Hydrochloride 4 MG/2 ML VIAL IV ONE (09:55)
[2023-04-30] MEDS ORDERED: SODIUM CHLORIDE 0.9% 1,000 ML IV ONE (09:55)
[2023-04-30 10:52] LABS: HEMATOCRIT 49.9 % (42.0-52.0); MANUAL DIFF REFLEX YES; MEAN CORPUSCULAR HGB 28.6 pg (27.0-31.0); MEAN CORPUSCULAR HGB CONC 33.7 g/dl (33.0-37.0); MEAN PLATELET VOLUME 10.3 fl (9.6-12.3); PLATELET COUNT AUTOMATED 360 10*3/uL (130-400); RED BLOOD COUNT 5.87 10*6/uL (4.50-5.90); RED CELL DISTRI WIDTH 13.4 % (0-14.5)
[2023-04-30 11:01] LABS: TOTAL CELLS COUNTED 100 #CELLS
[2023-04-30 11:02] LABS: BURR CELLS FEW; PLATELET SUFFICIENCY NORMAL (NORMAL); POLYCHROMASIA SLIGHT; VACUOLATION OF NEUTROPHILS SLIGHT
[2023-04-30 11:19] LABS: ALKALINE PHOSPHATASE 57 U/L (46-116); BUN 16 mg/dl (9-23); CHLORIDE 103 mmol/L (98-107); LIPASE 24 U/L (12-53); POTASSIUM 3.9 mmol/L (3.4-5.1); SGPT/ALT 18 U/L (5-49); TOTAL PROTEIN 7.9 gm/dL (6.0-8.0)
[2023-04-30] MEDS ORDERED: ONDANSETRON4 MG SL (11:37)
== END 2023-04-30 12:07 | disposition home or self-care (01) ==
LOC: ED 09:42
PROVIDERS: Internal Medicine
DX: R11.2 Nausea with vomiting, unspecified (principal); I10 Essential (primary) hypertension; F12.10 Cannabis abuse, uncomplicated; Z90.49 Acquired absence of other specified parts of digestive tract; Z98.890 Other specified postprocedural states

== ENCOUNTER 2023-05-01 05:26 | Emergency (ER) | payer OTHER ==
[~2023-05-01] VITALS: Ht 180.3 cm; Wt 70.3 kg
[2023-05-01] MEDS ORDERED: Ondansetron Hydrochloride 4 MG/2 ML VIAL IV ONE ×2 (05:55→11:50)
[2023-05-01] MEDS ORDERED: DIAZEPAM 10 MG/2 ML SYR IV ONE (05:55)
[2023-05-01] MEDS ORDERED: SODIUM CHLORIDE 0.9% 1,000 ML IV ONE ×2 (05:55→11:50)
[2023-05-01 06:11] LABS: HEMATOCRIT 52.2 % (42.0-52.0); MEAN CELL VOLUME 85.9 fl (80.0-94.0); MEAN CORPUSCULAR HGB 28.3 pg (27.0-31.0); MEAN PLATELET VOLUME 10.2 fl (9.6-12.3); PLATELET COUNT AUTOMATED 315 10*3/uL (130-400); RED BLOOD COUNT 6.08 10*6/uL (4.50-5.90); RED CELL DISTRI WIDTH 13.6 % (0-14.5); WHITE BLOOD COUNT 23.2 10*3/uL (4.8-10.8)
[2023-05-01 06:15] LABS: MANUAL DIFF REFLEX YES
[2023-05-01] MEDS ORDERED: Pantoprazole Sodium 40 MG VIAL IV ONE (06:20)
[2023-05-01 06:36] LABS: BUN 13 mg/dl (9-23); CHLORIDE 99 mmol/L (98-107); POTASSIUM 3.4 mmol/L (3.4-5.1)
[2023-05-01 06:40] LABS: ATYPICAL LYMPHS 1 % (0-0); PLATELET SUFFICIENCY NORMAL (NORMAL); TOTAL CELLS COUNTED 100 #CELLS
[2023-05-01] MEDS ORDERED: diphenhydrAMINE hydrochloride 50 MG/ML VIAL IV ONE (11:50)
== END 2023-05-01 18:19 | disposition home or self-care (01) ==
LOC: ED 05:26
PROVIDERS: Internal Medicine
DX: R11.2 Nausea with vomiting, unspecified (principal); R10.9 Unspecified abdominal pain; I10 Essential (primary) hypertension; F12.10 Cannabis abuse, uncomplicated; Z98.890 Other specified postprocedural states; Z90.49 Acquired absence of other specified parts of digestive tract

== ENCOUNTER 2023-05-04 07:21 | Emergency (ER) | payer OTHER ==
[~2023-05-04] VITALS: Ht 180.3 cm; Wt 70.3 kg
== END 2023-05-04 09:30 | disposition left against medical advice (07) ==
LOC: ED 07:21
DX: K64.9 Unspecified hemorrhoids (principal); Z53.21 Procedure and treatment not carried out due to patient leaving prior to being seen by health care provider

== ENCOUNTER 2023-05-04 15:26 | Emergency (ER) | payer OTHER ==
[~2023-05-04] VITALS: Ht 180.3 cm; Wt 70.3 kg
[2023-05-04] MEDS ORDERED: SODIUM CHLORIDE 0.9% 1,000 ML IV ONE (17:35)
[2023-05-04 18:07] LABS: BASO # 0.1 10*3/uL (0.0-0.1); BASO % 0.6 % (0.0-1.0); EOS # 0.2 10*3/uL (0.0-0.4); EOS % 1.9 % (1.0-4.0); HEMATOCRIT 47.1 % (42.0-52.0); LYMPH # 2.5 10*3/uL (1.3-4.4); LYMPH % 20.5 % (27.0-41.0); MEAN CELL VOLUME 83.2 fl (80.0-94.0); MEAN CORPUSCULAR HGB 28.4 pg (27.0-31.0); MEAN CORPUSCULAR HGB CONC 34.2 g/dl (33.0-37.0); MEAN PLATELET VOLUME 9.7 fl (9.6-12.3); MONO # 1.1 10*3/uL (0.1-1.0); MONO % 9.4 % (3.0-9.0); NEUT # 8.1 10*3/uL (2.3-7.9); NEUT % 67.4 % (47.0-73.0); PLATELET COUNT AUTOMATED 321 10*3/uL (130-400); RED BLOOD COUNT 5.66 10*6/uL (4.50-5.90)
[2023-05-04 18:32] LABS: ALKALINE PHOSPHATASE 53 U/L (46-116); BUN 8 mg/dl (9-23); CHLORIDE 106 mmol/L (98-107); LIPASE 47 U/L (12-53); POTASSIUM 3.3 mmol/L (3.4-5.1); SGPT/ALT 70 U/L (5-49); TOTAL PROTEIN 7.1 gm/dL (6.0-8.0)
[2023-05-04] MEDS ORDERED: LIDOCAINE 5% ANORECTAL CREAM R PRN (19:30)
== END 2023-05-04 23:02 | disposition short-term general hospital (02) ==
LOC: ED 15:26
PROVIDERS: Emergency Medicine
DX: K62.3 Rectal prolapse (principal); I10 Essential (primary) hypertension; F12.10 Cannabis abuse, uncomplicated; Z90.49 Acquired absence of other specified parts of digestive tract; Z98.890 Other specified postprocedural states

== ENCOUNTER 2023-07-21 09:59 | Emergency (ER) | payer SELFPAY ==
[~2023-07-21] VITALS: Ht 177.8 cm; Wt 77.1 kg
[2023-07-21] MEDS ORDERED: Metoclopramide Hydrochloride 10 MG/2 ML AMP IV ONE (10:35)
[2023-07-21] MEDS ORDERED: diphenhydrAMINE hydrochloride 50 MG/ML VIAL IV ONE (10:35)
[2023-07-21] MEDS ORDERED: FAMOTIDINE 50 ML IV ONE (10:35)
[2023-07-21] MEDS ORDERED: SODIUM CHLORIDE 0.9% 1,000 ML IV ONE (10:35)
[2023-07-21 11:21] LABS: BASO # 0.1 10*3/uL (0.0-0.1); BASO % 0.7 % (0.0-1.0); EOS % 0.1 % (1.0-4.0); HEMATOCRIT 47.5 % (42.0-52.0); LYMPH # 1.1 10*3/uL (1.3-4.4); LYMPH % 8.2 % (27.0-41.0); MEAN CELL VOLUME 85.6 fl (80.0-94.0); MEAN CORPUSCULAR HGB CONC 33.9 g/dl (33.0-37.0); MEAN PLATELET VOLUME 10.2 fl (9.6-12.3); MONO # 0.3 10*3/uL (0.1-1.0); MONO % 2.1 % (3.0-9.0); NEUT % 88.6 % (47.0-73.0); PLATELET COUNT AUTOMATED 318 10*3/uL (130-400); RED BLOOD COUNT 5.55 10*6/uL (4.50-5.90); RED CELL DISTRI WIDTH 12.8 % (0-14.5); WHITE BLOOD COUNT 13.5 10*3/uL (4.8-10.8)
[2023-07-21 11:39] LABS: ALKALINE PHOSPHATASE 72 U/L (46-116); BUN 10 mg/dl (9-23); CHLORIDE 107 mmol/L (98-107); LIPASE 45 U/L (12-53); POTASSIUM 3.4 mmol/L (3.4-5.1); SGPT/ALT 56 U/L (5-49); TOTAL PROTEIN 7.8 gm/dL (6.0-8.0)
[2023-07-21] MEDS ORDERED: LORazepam 2 MG/ML VIAL IV ONE (11:50)
[2023-07-21] MEDS ORDERED: REGLAN10 M1 PO (12:32)
[2023-07-21] MEDS ORDERED: PEPCID20 MG PO (12:32)
== END 2023-07-21 12:48 | disposition home or self-care (01) ==
LOC: ED 09:59
PROVIDERS: Emergency Medicine
DX: R11.15 Cyclical vomiting syndrome unrelated to migraine (principal); K21.9 Gastro-esophageal reflux disease without esophagitis; Z90.49 Acquired absence of other specified parts of digestive tract

== ENCOUNTER 2023-07-21 18:06 | Emergency (ER) | payer SELFPAY ==
[~2023-07-21] VITALS: Ht 177.8 cm; Wt 74.8 kg
[2023-07-21] MEDS ORDERED: Ondansetron Hydrochloride 4 MG/2 ML VIAL IV ONE (18:35)
[2023-07-21] MEDS ORDERED: Prochlorperazine Edisylate 10 MG/2 ML VIAL IV ONE (18:35)
[2023-07-21] MEDS ORDERED: SODIUM CHLORIDE 0.9% 1,000 ML IV ONE (18:35)
[2023-07-21] MEDS ORDERED: diphenhydrAMINE hydrochloride 50 MG/ML VIAL IV ONE (18:35)
== END 2023-07-21 20:39 | disposition home or self-care (01) ==
LOC: ED 18:06
DX: R11.15 Cyclical vomiting syndrome unrelated to migraine (principal); Z79.899 Other long term (current) drug therapy; K21.9 Gastro-esophageal reflux disease without esophagitis; Z90.49 Acquired absence of other specified parts of digestive tract

== ENCOUNTER 2023-07-23 17:43 | Emergency (ER) | payer SELFPAY ==
[~2023-07-23] VITALS: Ht 177.8 cm; Wt 74.8 kg
[2023-07-23] MEDS ORDERED: diphenhydrAMINE hydrochloride 50 MG/ML VIAL IM ONE (18:15)
[2023-07-23] MEDS ORDERED: Metoclopramide Hydrochloride 10 MG/2 ML AMP IM ONE (18:15)
[2023-07-23 18:26] LABS: BASO % 0.2 % (0.0-1.0); HEMATOCRIT 48.7 % (42.0-52.0); LYMPH # 1.6 10*3/uL (1.3-4.4); LYMPH % 9.9 % (27.0-41.0); MEAN CELL VOLUME 84.1 fl (80.0-94.0); MEAN CORPUSCULAR HGB 28.7 pg (27.0-31.0); MEAN CORPUSCULAR HGB CONC 34.1 g/dl (33.0-37.0); MEAN PLATELET VOLUME 10.1 fl (9.6-12.3); MONO # 1.1 10*3/uL (0.1-1.0); NEUT # 13.3 10*3/uL (2.3-7.9); NEUT % 82.7 % (47.0-73.0); PLATELET COUNT AUTOMATED 338 10*3/uL (130-400); RED BLOOD COUNT 5.79 10*6/uL (4.50-5.90); RED CELL DISTRI WIDTH 12.4 % (0-14.5); WHITE BLOOD COUNT 16.1 10*3/uL (4.8-10.8)
[2023-07-23 18:48] LABS: ALKALINE PHOSPHATASE 70 U/L (46-116); BUN 12 mg/dl (9-23); CHLORIDE 95 mmol/L (98-107); POTASSIUM 3.2 mmol/L (3.4-5.1); SGPT/ALT 29 U/L (5-49); TOTAL PROTEIN 7.9 gm/dL (6.0-8.0)
[2023-07-23] MEDS ORDERED: POTASSIUM CHLORIDE 20 MEQ TAB PO ONE (19:00)
[2023-07-23] MEDS ORDERED: REGLAN10 M1 PO (19:01)
== END 2023-07-23 19:03 | disposition home or self-care (01) ==
LOC: ED 17:43
PROVIDERS: Internal Medicine
DX: R11.15 Cyclical vomiting syndrome unrelated to migraine (principal); I10 Essential (primary) hypertension; Z90.49 Acquired absence of other specified parts of digestive tract; Z98.890 Other specified postprocedural states; F12.10 Cannabis abuse, uncomplicated